=== PATIENT | female | born 1980 | race Caucasian/White ===

== ENCOUNTER → 2017-11-01 14:32 | Outpatient (CLI) | payer MEDICARE, SELFPAY ==
[2017-11-01 15:54] LABS: Amphetamine Urine VISTA NEGATIVE (<1000 ng/mL); Barbiturate Urine VISTA NEGATIVE (< 200 ng/mL); Benzodiazepine Urine VISTA NEGATIVE (< 200 ng/mL); Cocaine Urine VISTA POSITIVE (< 300 ng/mL); Ecstacy Urine VISTA NEGATIVE (< 500 ng/mL); Methadone Urine VISTA NEGATIVE (< 300 ng/mL); PCP Urine VISTA NEGATIVE (< 25 ng/mL); THC Urine VISTA POSITIVE (< 50 ng/mL); Vista UDS pH Range 7
== END ==
PROVIDERS: Visit Provider Anesthesiology Pain Medicine
DX: F11.20 Opioid dependence, uncomplicated (principal)
CPT/HCPCS: 80307

== ENCOUNTER 2018-03-21 12:00 | Emergency (ER) | payer MEDICARE, SELFPAY ==
[2018-03-21 12:00] VITALS: BP 147/76; PULSE 72; RESP 20; TEMP 36.6; O2SAT 98; BMI 24.5
--- NOTE | 2018-03-21 12:18 | RAD_ITS ---
STUDY: X-RAY - LEFT SHOULDER REASON FOR EXAM: Female, 37 years old. Decreased range of motion with pain following a fall. TECHNIQUE: 2 view(s) of the shoulder. COMPARISON: None. FINDINGS: Normal glenohumeral articulation. Normal acromioclavicular joint. Normal acromion. Nondisplaced transverse fracture of the surgical neck of the humerus. The soft tissue structures are unremarkable. Normal visualized pulmonary apex. RAD/Shoulder min 2 Views IMPRESSION: Nondisplaced transverse fracture of the surgical neck of the humerus. Electronically Signed: Aaron Rosenthal MD at 13:07 EST Tel [phone], Service support ,
--- NOTE | 2018-03-21 12:18 | RAD_ITS ---
STUDY: X-RAY - LEFT HUMERUS REASON FOR EXAM: Female, 37 years old. Pain following a fall. Decreased range of motion. TECHNIQUE: 2 view(s) with 3 images of the humerus. COMPARISON: None. FINDINGS: Nondisplaced transverse fracture of the surgical neck of the humerus. This extends to the greater tuberosity. Soft tissue swelling. RAD/Humerus min 2 Views IMPRESSION: Nondisplaced transverse fracture through the surgical neck of the humerus with extension to the greater tuberosity. Electronically Signed: Aaron Rosenthal MD at 13:08 EST Tel [phone], Service support ,
--- NOTE | 2018-03-21 12:20 | ED.VISSUMM ---
- ER Visit Summary Date of Service: 03/21/18 Chief Complaint: Slipped and fell on the ice injuring left upper extremity and shoulder History of Present Illness: The patient is a 37 F left hand dominant. Was going outside of health today slipped and fell landing injuring her left shoulder and upper extremity. No prior history. She is left-hand dominant. She denies striking her head or having other injuries. Physical Examination: Vital signs are stable and afebrile. No distress. H EENT exam atraumatic. No signs of trauma to the face or scalp no tenderness or hematoma. Neck nontender. Trachea midline. Lungs clear to auscultation bilaterally. Heart regular rhythm no murmur. Chest wall nontender. Abdomen soft nontender. Pelvic girdle intact. No shortening or rotation of either lower extremity. Dorsi and plantar flexion intact in both feet and ankles. Able to flex and extend both hips and knees bilaterally. Right upper extremity unremarkable. Mild tenderness to the left posterior shoulder and humerus. No gross bony deformity. Elbow, left forearm, wrist and hand are nontender neurovascular intact she has normal car shakeout operator strength of the left hand normal sensation. Normal radial pulse. Back is nontender. Neurologically she is awake and alert with no focal motor deficits. Test Results: Left shoulder x-ray shows nondisplaced left surgical neck humeral fracture. Left humerus x-ray shows nondisplaced surgical neck fracture. Emergency Department Course and Treatment: Patient treated with 1 p.o. Staples. Treatment Plan: Patient placed in a sling. Discharged to home with Percocet for pain 20 no refill. Follow-up with Dr. Mark Boyce of orthopedics. Disposition: Discharge Impression: Slipped and fell on the ice Acute left shoulder nondisplaced humeral surgical neck fracture This note was generated with [employer] dictation software. It may contain incorrect words, spelling, and punctuation that were not noted in review of the chart prior to signing ED Disposition - Plan for ED Patient: Chief Complaint: Upper Extremity Injury Referrals: Care Physician,No Primary [Primary Care Provider] -
--- NOTE | 2018-03-21 12:24 | ED.DCSUM_ITS ---
- ER Visit Summary Date of Service: 03/21/18 Chief Complaint: Slipped and fell on the ice injuring left upper extremity and shoulder History of Present Illness: The patient is a 37 F left hand dominant. Was going outside of health today slipped and fell landing injuring her left shoulder and upper extremity. No prior history. She is left-hand dominant. She denies striking her head or having other injuries. Physical Examination: Vital signs are stable and afebrile. No distress. H EENT exam atraumatic. No signs of trauma to the face or scalp no tenderness or hematoma. Neck nontender. Trachea midline. Lungs clear to auscultation bilaterally. Heart regular rhythm no murmur. Chest wall nontender. Abdomen soft nontender. Pelvic girdle intact. No shortening or rotation of either lower extremity. Dorsi and plantar flexion intact in both feet and ankles. Able to flex and extend both hips and knees bilaterally. Right upper extremity unremarkable. Mild tenderness to the left posterior shoulder and humerus. No gross bony deformity. Elbow, left forearm, wrist and hand are nontender neurovascular intact she has normal train starter strength of the left hand normal sensation. Normal radial pulse. Back is nontender. Neurologically she is awake and alert with no focal motor deficits. Test Results: Left shoulder x-ray shows nondisplaced left surgical neck humeral fracture. Left humerus x-ray shows nondisplaced surgical neck fracture. Emergency Department Course and Treatment: Patient treated with 1 p.o. [place]. Treatment Plan: Patient placed in a sling. Discharged to home with Percocet for pain 20 no refill. Follow-up with Dr. Mark Boyce of orthopedics. Disposition: Discharge Impression: Slipped and fell on the ice Acute left shoulder nondisplaced humeral surgical neck fracture This note was generated with [employer] dictation software. It may contain incorrect words, spelling, and punctuation that were not noted in review of the chart prior to signing ED Disposition - Plan for ED Patient: Chief Complaint: Upper Extremity Injury Referrals: Care Physician,No Primary [Primary Care Provider] -
[2018-03-21] MEDS: HYDROcodone Bitartrate/Apap 5/325 Tablet PO (12:34)
--- NOTE | 2018-03-21 13:30 | ED.DEP ---
ED Disposition - Plan for ED Patient: Disposition: Home or Assisted Living Chief Complaint: Upper Extremity Injury Instructions: ED Fx Shoulder Prescriptions: Oxycodone HCl/Acetaminophen [Percocet 10-325 mg Tablet] 1 tab PO Q6H PRN PRN #20 tab PRN Reason: Pain Referrals: Mark Boyce DO [STAFF PHYSICIAN] - Additional Instructions: Ice to the shoulder. Take out the sling daily to do range of motion and prevent stiffness. Motrin and Percocet for pain. Call and follow-up with Dr. Mark Boyce of orthopedics or an orthopedic physician of your choice.
== END 2018-03-21 13:50 | disposition home or self-care (01) ==
PROVIDERS: Emergency Provider Emergency Medicine
DX: S42.215A Unspecified nondisplaced fracture of surgical neck of left humerus, initial encounter for closed fracture (principal); W00.2XXA Other fall from one level to another due to ice and snow, initial encounter; Y93.89 Activity, other specified; Y92.008 Other place in unspecified non-institutional (private) residence as the place of occurrence of the external cause; G40.909 Epilepsy, unspecified, not intractable, without status epilepticus; M79.7 Fibromyalgia; Z79.899 Other long term (current) drug therapy; Z72.0 Tobacco use
CPT/HCPCS: 73030; 73060; 99283

== ENCOUNTER 2020-01-05 21:24 | Emergency (ER) | payer MEDICARE, MEDICAID, SELFPAY ==
[2020-01-05 21:25] VITALS: BP 139/80; PULSE 83; RESP 16; TEMP 36.4; O2SAT 99; BMI 21.7
--- NOTE | 2020-01-05 21:42 | ED.VIS.GEN ---
History of Present Illness Chief Complaint: Headache Informant: Patient Narrative: Patient presents the emergency department with a right-sided headache. Patient reports a history of migraines but since having her teeth pulled about 2 months ago she has not experienced a migraine. She states that she woke Sunday around noon with this headache. She denies any visual symptoms or changes. She denies any speech or hearing symptoms. No arm or leg symptoms. Headache is not positional. She has not had any recent infections or fevers. She does not have a primary care physician or automated access systems technician for her clotting disorder any longer Past Medical History - Allergies and Home Meds Allergies/Adverse Reactions: Allergies azithromycin Allergy (Verified 01/05/20 21:27) Hives erythromycin base [Erythromycin Base] Allergy (Verified 01/05/20 21:27) Hives latex Allergy (Verified 01/05/20 21:27) Rash Sulfa (Sulfonamide Antibiotics) Allergy (Verified 01/05/20 21:27) Hives divalproex sodium [From Depakote] Adverse Reaction (Verified 01/05/20 21:27) Rash Penicillins Adverse Reaction (Verified 01/05/20 21:27) Rash Primary Care Physician: Care Physician,No Primary [Primary Care Provider] - Smoking Status: Current every day smoker Review of Systems General: Denies: Chills, Fever, Sweats Eyes: Denies: Visual changes - bilaterally, Diplopia ENT: Denies: Rhinorrhea, Sore throat Cardiovascular: Denies: Chest pain, Palpitations Respiratory: Denies: Dyspnea, Cough, Dyspnea on exertion Gastrointestinal: Denies: Abdominal pain, Nausea, Vomiting, Diarrhea, Melena, Hematochezia Genitourinary: Denies: Dysuria, Hematuria, Frequency Musculoskeletal: Denies: Back pain, Extremity Pain Skin: Denies: Rash, Wounds Neurological: Reports: Headache. Denies: Weakness, Numbness Physical Exam Vital Signs/Narrative: Vital Signs Temp Pulse Resp BP Pulse Ox 01/05/20 21:25 97.6 F L 83 16 139/80 H 99 Inital Vital Signs reviewed: Yes General: Well nourished, Well developed, No Acute Distress Head: Normocephalic, Atraumatic Eyes: Perrl, EOMI ENT: Moist mucous membranes, No rhinorrhea Neck: Supple, Nontender Cardiovascular: Regular rate, Regular rhythm, No murmurs Respiratory: No distress, CTA bilaterally, Chest nontender Abdomen: Soft, Nontender, Nondistended, Normal bowel sounds Back: Nontender, Normal Inspection Extremities: Nontender, No edema Skin: Normal color, No rash Neurological: Alert, Oriented x3, Cranial nerves II-XII grossly intact, Normal Strength, Normal Sensation Psychological: Normal affect, Normal Mood Diagnostic/Tx/Re-eval - Medical Decision Making Patient received Toradol, Phenergan, Benadryl, IV fluids. She states her headache is significantly improved down to. We will give her a dose of Decadron. I will write for her to have Toradol and Phenergan at home for headaches if they continue. Patient needs to establish primary care. She has multiple medical problems that should be followed on a long-term basis. She understands this I will give her referral. ED Disposition - Plan for ED Patient: Disposition: Home or Assisted Living Diagnosis: Migraine Instructions: ED Headache Unspecified Prescriptions: proMETHazine tablet [Phenergan] 25 mg PO Q8H PRN PRN #15 tab PRN Reason: Nausea Transmission Status: Pending to [facility] Ketorolac [Toradol] 10 mg PO Q8H PRN 5 Days #15 tab PRN Reason: Pain Transmission Status: Pending to [facility] Referrals: Fabricio Khan MD [STAFF PHYSICIAN] - As soon as possible
[2020-01-05] MEDS: 0.9% Normal Saline 1,000 ML 999 ML IV (22:19)
[2020-01-05] MEDS: Ketorolac 30 MG/ML Syringe IV (22:19)
[2020-01-05] MEDS: DiphenhydrAMINE 50 MG/ML Syringe 25 MG IV (22:20)
[2020-01-05] MEDS: proMETHazine 25 MG/ML Syringe 12.5 MG IV (22:22)
[2020-01-05] MEDS: dexAMETHasone 10 MG/ML Vial IV (23:36)
[2020-01-05 23:40] VITALS: BP 100/58; PULSE 88; RESP 98
== END 2020-01-05 23:46 | disposition home or self-care (01) ==
PROVIDERS: Emergency Provider Emergency Medicine
DX: G43.909 Migraine, unspecified, not intractable, without status migrainosus (principal); F17.200 Nicotine dependence, unspecified, uncomplicated
CPT/HCPCS: 96361; 96374; 96375; 99283; J7030; A4216

== ENCOUNTER 2021-10-07 12:46 | Emergency (ER) | payer MEDICARE, MEDICAID, SELFPAY ==
[2021-10-07 12:47] VITALS: BP 134/93; PULSE 127; RESP 16; TEMP 38.4; O2SAT 95; BMI 21.7
--- NOTE | 2021-10-07 12:58 | EKG12_ITS ---
Test Reason : Blood Pressure : / mmHG Vent. Rate : 115 BPM Atrial Rate : 115 BPM P-R Int : 116 ms QRS Dur : 088 ms QT Int : 328 ms P-R-T Axes : 077 071 062 degrees QTc Int : 453 ms Sinus tachycardia Nonspecific T wave abnormality Abnormal ECG Confirmed by REGINA CHI, LORNA ([id number]), commissioning editor CELINA AVILES ([id number]) on 10/10/2021 12:58:46 PM Referred By: KATI Confirmed By:LORNA TAPIA MD
--- NOTE | 2021-10-07 12:58 | RAD_ITS ---
STUDY: X-RAY CHEST REASON FOR EXAM: Female, 41 years old. Cough . Body aches and fever. TECHNIQUE: Single AP portable view of the chest. COMPARISON: None. FINDINGS: EKG electrodes are seen. Right lower lobe infiltrate. There is no demonstrated pleural abnormality. Normal size heart. Normal mediastinum and sally. Normal visualized pulmonary arteries. Normal visualized aortic arch and descending thoracic aorta. Normal visualized thoracic spine. Normal visualized ribs, clavicles, and shoulders. There is no demonstrated abnormality of the visualized soft tissue structures of the upper abdomen. RAD/Chest 1 View (Portable) IMPRESSION: Right lower lobe infiltrate. Radiographic follow-up recommended. Electronically Signed: Aaron Rosenthal MD at 13:51 EDT ,
--- NOTE | 2021-10-07 12:59 | EDS_ITS ---
HPI History of Present Illness Chief Complaint: Chest Other Narrative Narrative: 41-year-old female presenting with right-sided chest pain, cough, fever, chills, body aches. She states that her daughter came to visit her on the weekend last Sunday and she had a cough. Since Sunday or Sunday the patient herself had a cough and high fever. She states that her fever does resolve with Motrin and Tylenol but then does return. Patient does not have significant shortness of breath. She states she is coughing up sputum. Patient has history of DVT and PE with history of lupus. She is not anticoagulated. PFSH PFSH Home Medications promethazine 25 mg PO Q8H PRN PRN #15 tab 01/05/20 [Rx Last Taken Unknown] levofloxacin 750 mg PO DAILY #4 tab 10/07/21 [Rx Last Taken Unknown] ondansetron 4 mg PO Q8H PRN #14 tab 10/07/21 [Rx Last Taken Unknown] Allergy/AdvReac Type Severity Reaction Status Date / Time azithromycin Allergy Hives Verified 10/07/21 12:49 erythromycin base Allergy Hives Verified 10/07/21 12:49 [Erythromycin Base] latex Allergy Rash Verified 10/07/21 12:49 Sulfa (Sulfonamide Allergy Hives Verified 10/07/21 12:49 Antibiotics) divalproex sodium AdvReac Rash Verified 10/07/21 12:49 [From Depakote] nitroglycerin AdvReac Vomiting Verified 10/07/21 12:49 Penicillins AdvReac Rash Verified 10/07/21 12:49 Social History Smoking Status: Current some day smoker tobacco type: cigarettes ROS ROS ED Constitutional Constitutional ED: Reports chills and fever(s) Eyes Eyes: Denies blurry vision or change in vision ENT ENT ED: Reports rhinorrhea Cardiovascular Cardiovascular: Reports chest pain and racing heartbeat Respiratory/Chest Respiratory/Chest: Reports cough and sputum Gastrointestinal Gastrointestinal: Denies abdominal pain, nausea or vomiting Genitourinary Genitourinary ED: Denies dysuria or hematuria Musculoskeletal Musculoskeletal: Reports myalgias Integumentary Denies rash Neurologic Neurologic: Reports headache(s); Denies paresthesias or weakness Psychiatric Psychiatric: Denies anxiety or depression EXAM Physical Exam Const Vital Signs: 10/07/21 12:47 10/07/21 13:32 10/07/21 13:33 Temperature 101.2 F H 101.2 F H Temperature Source Temporal Temporal Pulse Rate 127 H 127 H Respiratory Rate 16 16 Respiratory Effort Normal Blood Pressure 134/93 H 134/93 H Blood Pressure Mean 106 106 Pulse Ox 95 95 Oxygen Delivery Method Room Air Room Air 10/07/21 14:00 10/07/21 15:00 Temperature 99.4 F H 99.5 F H Temperature Source Oral Oral Pulse Rate 105 H 103 H Respiratory Rate 12 21 H Respiratory Effort Blood Pressure Blood Pressure Mean Pulse Ox 96 99 Oxygen Delivery Method Room Air Room Air Positive well nourished General Appearance ED: NAD; Negative for pallor HEENT Reports moist mucous membranes normocephalic and atraumatic Eyes PERRL and EOMs intact bilaterally General Eye ED: Negative for pale conjunctiva or scleral icterus Neck no lymphadenopathy, supple and no JVD Chest Wall inspection of chest normal Resp normal respiratory effort Auscultation: rales right lower and upper and rhonchi left upper and right upper Cardio regular rhythm Rate: tachycardic GI normal to inspection, nondistended, normoactive bowel sounds Neuro oriented x3 and CN's II-XII intact bilaterally Sensorium / Orientation: awake and alert Motor Exam: strength 5/5 throughout Psych mental status grossly normal Skin no rashes or lesions noted General Skin Exam: Negative for jaundice or pallor MDM MDM MDM Narrative Medical decision making narrative: 41-year-old female present with cough, fever, chills, body aches. Patient states she initially started getting sick after her daughter came to visit. She developed a fever cough later this week. Patient tachycardic, febrile on arrival. Sepsis protocol followed. I obtained a CBC which shows a 15.5 white count. Hemoglobin hematocrit are stable. There is a male coagulation studies normal. Renal function and electrolytes normal with exception of potassium which is 2.9 which was repleted orally with 40 mEq. LFTs are normal. High-sensitivity troponin is less than 3. EKG on my interpretation shows a normal sinus rhythm with a ventricular rate of 115 bpm without sign of ischemic change or dysrhythmia. Chest x-ray on my interpretation shows a right lower lobe infiltrate. The radiologist does agree. Patient treated with an IV dose of Levaquin due to her multiple antibiotic allergies. Patient feeling better after IV fluids, Zofran, Toradol. Her fever has improved. Patient does have pneumonia but I do not believe she is to stay because is not hypoxic and her heart rate is improved. She feels well and wants to try home-going antibiotics. I will start her on Levaquin for home. She is given Zofran for nausea. She is counseled to stay well-hydrated. COVID testing today was negative. Although the patient does have right-sided chest pain her heart enzymes are normal and her EKG does not show any sign of ischemia. We did discuss the fact that she previously had a PE and she states that this when she was septic and had meningitis. She wanted a CTA of the chest to rule this out however due to difficulty getting IV established she will obtain membership counselor her that we could attempt to put an IV in her EJ but after discussion and shared decision making she feels like she can hold off on this for now. We do have a diagnosis of pneumonia which is on a chest x-ray and her symptoms are consistent with an infection. Patient given return precautions. Impression: 1. Right lower lobe pneumonia 2. Fever 3. Leukocytosis 4. Hypokalemia Lab Data Attestation: I reviewed the patient's lab results. Labs: Laboratory Results - last 24 hr 10/07/21 10/07/21 10/07/21 13:19 13:19 13:19 WBC 15.5 H RBC 4.46 Hgb 13.8 Hct 40.8 MCV 91.5 MCH 30.9 MCHC 33.8 RDW Std Deviation 43.8 RDW Coeff of Paulo 13.1 Plt Count 201 MPV 9.6 Immature Gran % (Auto) RESIDENTIAL SALES ASSOCIATE Neut % (Auto) RESIDENTIAL SALES ASSOCIATE Lymph % (Auto) RESIDENTIAL SALES ASSOCIATE [place] % (Auto) RESIDENTIAL SALES ASSOCIATE Eos % (Auto) RESIDENTIAL SALES ASSOCIATE Baso % (Auto) RESIDENTIAL SALES ASSOCIATE Absolute Neuts (auto) 15.6 H Absolute Lymphs (auto) 0.93 Total Counted 100 Neutrophils % (Manual) 63 Band Neutrophils % 31 H Lymphocytes % (Manual) 6 L Nucleated RBC % RESIDENTIAL SALES ASSOCIATE Diff Path Review May foll Platelet Estimate ADEQUATE RBC Morphology NORM C+C PT 14.3 INR 1.1 APTT 31.3 Sodium 135 L Potassium 2.9 L Chloride 103 Carbon Dioxide 26.0 Anion Gap 6 BUN 9 Creatinine 0.79 Estim Creat Clear Calc 77.52 Est GFR (MDRD) Af Amer 103 Est GFR (MDRD) Non-Af 85 BUN/Creatinine Ratio 11.4 Glucose 81 Lactic Acid Calcium 8.6 Total Bilirubin 0.20 AST 14 L ALT 23 Alkaline Phosphatase 75 Troponin I High Sens < 3 L Total Protein 7.7 Albumin 3.0 L Globulin 4.7 H Albumin/Globulin Ratio 0.6 L 10/07/21 13:19 WBC RBC Hgb Hct MCV MCH MCHC RDW Std Deviation RDW Coeff of Paulo Plt Count MPV Immature Gran % (Auto) Neut % (Auto) Lymph % (Auto) [place] % (Auto) Eos % (Auto) Baso % (Auto) Absolute Neuts (auto) Absolute Lymphs (auto) Total Counted Neutrophils % (Manual) Band Neutrophils % Lymphocytes % (Manual) Nucleated RBC % Diff Path Review Platelet Estimate RBC Morphology PT INR APTT Sodium Potassium Chloride Carbon Dioxide Anion Gap BUN Creatinine Estim Creat Clear Calc Est GFR (MDRD) Af Amer Est GFR (MDRD) Non-Af BUN/Creatinine Ratio Glucose Lactic Acid 1.4 Calcium Total Bilirubin AST ALT Alkaline Phosphatase Troponin I High Sens Total Protein Albumin Globulin Albumin/Globulin Ratio Radiography Diagnostic Testing: Clinical Impression(s) from Imaging Studies Chest X-Ray 10/07/21 12:58 IMPRESSION: Right lower lobe infiltrate. Radiographic follow-up recommended. Electronically Signed: Aaron Rosenthal MD at 13:51 EDT , Discharge Plan Triage Chief Complaint: Chest Other ED Provider: Efrem Chowdary Dx/Rx/DC Orders Instructions: ED Chest Pain, Noncardiac, ED Pneumonia (Adult) Prescriptions: New levofloxacin 750 mg tablet 750 mg PO DAILY Qty: 4 RF: 0 ondansetron 4 mg tablet,disintegrating 4 mg PO Q8H PRN (Reason: nausea and vomiting) Qty: 14 RF: 0 No Action promethazine 25 MG tablet 25 mg PO Q8H PRN PRN (Reason: Nausea) Qty: 15 RF: 0 Primary Care Provider: Care Physician,No Primary Referrals: Care Physician,No Primary [Primary Care Provider] - Disposition Disposition: Home, Self Care
[2021-10-07] MEDS: 0.9% Normal Saline 1,000 ML 999 ML IV (13:23)
[2021-10-07] MEDS: Ketorolac 15 MG/ML Vial IV (13:23)
[2021-10-07 13:32] VITALS: BP 134/93; PULSE 127; RESP 16; TEMP 38.4; O2SAT 95
[2021-10-07 13:40] LABS: Hematocrit 40.8 % (37-47); Hemoglobin 13.8 g/dL (12.0-15.0); Mean Corp Hgb Conc 33.8 g/dL (32-36); Mean Corpuscular Hgb 30.9 pg (27.0-32.0); Mean Corpuscular Volume 91.5 fL (81-99); Mean Platelet Vol. 9.6 fl (6.2-12.0); POSITIVE MORPHOLOGY YES; Platelet Count 201 K/mm3 (150-450); RBC Distribution Width CV 13.1 % (11.6-14.6); RBC Distribution Width SD 43.8 fl (35.1-43.9); Red Blood Count 4.46 M/mm3 (4.2-5.4); White Blood Count 15.5 K/mm3 (4.4-11.0)
[2021-10-07 13:51] LABS: International Normalized Ratio 1.1; Partial Thromboplast Time 31.3 Seconds (24.1-36.2); Prothrombin Time (Protime)PT. 14.3 SECONDS (11.7-14.9)
[2021-10-07 14:00] VITALS: PULSE 105; RESP 12; TEMP 37.4; O2SAT 96
[2021-10-07 14:00] LABS: ALB/GLOB Ratio 0.6 RATIO (0.9-2.4); AST(SGOT) 14 U/L (15-37); Alanine Aminotransfer ALT/SGPT 23 U/L (13-56); Alkaline Phosphatase 75 U/L (45-117); Anion Gap 6 (5-15); BUN 9 mg/dL (7-18); BUN/Creat Ratio 11.4 RATIO (10-20); Calcium,Total 8.6 mg/dL (8.5-10.1); Chloride 103 mmol/L (98-107); Creatinine, Serum 0.79 mg/dL (0.55-1.02); EST Glomerular Filtration Rate 85 mL/min (>60); Est Glom Filt Rate - Afr Amer 103 mL/min (>60); Estimated Creatinine Clearance 77.52 ml/min; Globulin 4.7 g/dL (2.2-4.2); Glucose 81 mg/dL (74-106); Potassium 2.9 mmol/L (3.5-5.1); Protein, Total 7.7 g/dL (6.4-8.2); Sodium Level 135 mmol/L (136-145); Troponin-I HS < 3 pg/mL (3.0-54.0)
[2021-10-07 14:17] LABS: Lactic Acid 1.4 mmol/L (0.4-1.9)
[2021-10-07 14:27] LABS: Scan Smear per Review Criteria MANUAL DIFF
[2021-10-07 14:29] LABS: Differential Indicated MANUAL DIFF
[2021-10-07 14:33] LABS: Lymphocyte 6 % (19-41); Neutrophil-Band 31 % (0-5); Neutrophil-Segmented 63 % (47-70); Platelet Estimate ADEQUATE (ADEQ); Red Cell Morphology NORM C+C NORMAL (NORM C&C); Total Cells Counted 100 (MANUAL DIFF)
[2021-10-07 14:35] LABS: Absolute Lymphocyte Count 0.93 X10^3/uL (0.83-4.51); Absolute Neutrophil Count 15.6 X10^3/uL (2.0-7.7)
--- NOTE | 2021-10-07 14:50 | CM.ED ---
SW Note SW reviewed tracker and noted that patient has no PCP. SW met with PCP and patient said that the reason that she cannot have get a PCP is they said I am too complicated. Patient said I had to fire Dr. Cuevas years ago because he said I wasn't sick.. I was drug seeking. SW encouraged patient to secure a PCP when patient is feeling better. Plan: [facility] L[facility]
[2021-10-07 15:00] VITALS: PULSE 103; RESP 21; TEMP 37.5; O2SAT 99
[2021-10-07] MEDS: levoFLOXacin IV 750 MG/150 ML BAG 100 MG IV (15:06)
[2021-10-07] MEDS: Potassium Chloride Oral Tablet 20 MEQ 40 MEQ PO (15:48)
[2021-10-07 16:09] VITALS: PULSE 107; RESP 24
[2021-10-10 13:33] LABS: Pathologist Review Reviewed
== END 2021-10-07 16:38 | disposition home or self-care (01) ==
PROVIDERS: Emergency Provider Student in an Organized Health Care Education/Training Program; Visit Provider Student in an Organized Health Care Education/Training Program
DX: J18.9 Pneumonia, unspecified organism (principal); E87.6 Hypokalemia; F17.210 Nicotine dependence, cigarettes, uncomplicated; R07.89 Other chest pain; Z86.711 Personal history of pulmonary embolism
CPT/HCPCS: 71045; 80053; 83605; 84484; 85025; 85610; 85730; 87040; 87811; 93005; 96361; 96365; 96366; 96375; 99285; J7030; A4216

== ENCOUNTER 2022-10-09 21:45 | Inpatient (IN) | payer MEDICARE, MEDICAID, SELFPAY ==
[2022-10-09 21:45] VITALS: BP 126/87; PULSE 125; RESP 15; TEMP 37.2; O2SAT 99; BMI 21.6
--- NOTE | 2022-10-09 22:10 | EKG12_ITS ---
Test Reason : DYSRHYTHMIA Blood Pressure : / mmHG Vent. Rate : 092 BPM Atrial Rate : 092 BPM P-R Int : 122 ms QRS Dur : 090 ms QT Int : 380 ms P-R-T Axes : 076 063 066 degrees QTc Int : 469 ms Normal sinus rhythm Normal ECG Confirmed by REGINA CHI, LORNA ([id number]), video editor CELINA AVILES ([id number]) on 10/11/2022 8:59:35 AM Referred By: KELLI Confirmed By:LORNA TAPIA MD
--- NOTE | 2022-10-09 22:12 | EX.ED.DYSGE1 ---
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 Patient notes about 5 days ago she started having swelling of her hands. She started taking an [id number] diuretic, diurex, and while she reports that her swelling has improved she notes that she has had decreased urine output. Her daughter just had a baby 2 weeks ago and she is been holding the baby a lot so she did note that is why her hands and arms were hurting. She denies any trauma or injury. She has a past few days she is felt very weak and is even had a hard time standing because she is so weak. She has had nausea and yesterday pretty severe dry heaves. States she really has been able to eat or drink much at all today. She did have some 600 mg of Motrin earlier today and Zofran this morning. She reports having a fever yesterday but she did not check her temperature because she states she was too weak to get off the couch. She denies any specific shortness of breath or chest pain. She has some chronic leg swelling but notes it is no worse than normal. She denies any cough. She does have a mild headache. Denies any rash. No other complaints at this time. [facility] Medical History Asthma Colitis Depression DVT (deep venous thrombosis) Fibromyalgia Lupus Narcolepsy Seizure Home Medications NK 10/09/22 [History Last Taken Unknown] Allergy/AdvReac Type Severity Reaction Status Date / Time azithromycin Allergy Hives Verified 10/09/22 21:49 erythromycin base Allergy Hives Verified 10/09/22 21:49 [Erythromycin Base] latex Allergy Rash Verified 10/09/22 21:49 Sulfa (Sulfonamide Allergy Hives Verified 10/09/22 21:49 Antibiotics) divalproex sodium AdvReac Rash Verified 10/09/22 21:49 [From Depakote] nitroglycerin AdvReac Vomiting Verified 10/09/22 21:49 Penicillins AdvReac Rash Verified 10/09/22 21:49 Family History Other Cancer Heart problem Pulmonary fibrosis Surgical History H/O knee surgery History of Social History (Updated 10/10/22 @ 03:[address] Miguel Angel Vargas MD) Smoking Status: Former smoker ROS ROS ED Constitutional Constitutional ED: Reports chills and fever(s) Eyes Eyes: Denies change in vision ENT ENT ED: Denies rhinorrhea or sore throat Cardiovascular Cardiovascular: Reports racing heartbeat; Denies chest pain or palpitations Respiratory/Chest Respiratory/Chest: Denies cough or dyspnea Gastrointestinal Gastrointestinal: Reports nausea and vomiting; Denies abdominal pain, constipation or diarrhea Genitourinary Genitourinary ED: Reports other Details: Decreased urination ; Denies dysuria or urinary frequency Musculoskeletal Musculoskeletal: Reports myalgias; Denies arthralgias or neck pain Integumentary Denies rash Neurologic Neurologic: Reports headache(s) and weakness; Denies paresthesias Psychiatric Psychiatric: Denies anxiety Hematologic/Lymphatic Hematologic/Lymphatic: Denies easy bleeding or easy bruising EXAM Physical Exam Const Vital Signs: 10/09/22 21:45 10/09/22 22:07 10/09/22 22:13 Temperature 99.0 F Temperature Source Temporal Pulse Rate 125 H Respiratory Rate 15 Respiratory Effort Normal Non-Labored Respiratory Pattern Normal Blood Pressure 126/87 H Blood Pressure Mean 100 Pulse Ox 99 Oxygen Delivery Method Room Air Room Air 10/09/22 22:54 10/10/22 00:30 10/09/22 23:45 Temperature 97.4 F L Temperature Source Temporal Pulse Rate 85 79 79 Respiratory Rate 17 14 16 Respiratory Effort Respiratory Pattern Blood Pressure 111/73 97/72 97/65 Blood Pressure Mean 85 80 75 Pulse Ox 98 98 Oxygen Delivery Method Room Air Room Air 10/10/22 02:00 Temperature Temperature Source Pulse Rate 79 Respiratory Rate Respiratory Effort Respiratory Pattern Blood Pressure 100/62 Blood Pressure Mean 74 Pulse Ox Oxygen Delivery Method Positive well nourished and well developed General Appearance ED: well developed and NAD HEENT Reports TM's clear and dry mucous membranes Tympanic Membrane ED: Yes TM's clear Mouth ED: Yes dry mucous membranes Mouth: dry mucous membranes Eyes PERRL and EOMs intact bilaterally Neck supple and no JVD Neck Narrative: Normal range of motion with no meningeal signs General: Negative for tenderness Chest Wall inspection of chest normal and palpation of chest normal Resp normal respiratory effort and clear to auscultation bilaterally Auscultation: Negative for rales or wheezes Cardio regular rhythm and no murmurs Rate: tachycardic GI normal to inspection, nondistended, normoactive bowel sounds and non-tender Back/Spine no CVA tenderness Extremity normal to inspection Extremity Narrative: Intact distal pulses. No significant edema of the extremities appreciated. General Extremety ED: Negative for tenderness Neuro oriented x3 Sensorium / Orientation: alert Motor Exam: general weakness Psych mental status grossly normal Mood & Affect: anxious Skin Skin Narrative: Dry skin, jimenez. Rashes: No rashes noted MDM MDM MDM Narrative Medical decision making narrative: Patient is evaluated for generalized weakness, myalgia and fever. Upon arrival patient is tachycardic with a low-grade temp of 99 ?F. She is not hypoxic. She has complex medical history in addition. We will obtain a septic work-up as well as looking for cause of infection. Is given IV fluids, Tylenol and Zofran in the emergency room. Patient's tachycardia improved however it improved prior to receiving IV fluids. She does have a leukopenia with a white blood cell count of 3.8. She also has signs of a left shift. Urinalysis is concerning for infection with 500 leukocyte esterase, 25-50 red blood cells and 50-100 white blood cells however it is contaminated with squamous epithelial cells. There is 4+ bacteria. Patient is currently menstruating. Culture sent. She is empirically placed on Rocephin as I have no other source of infection for her symptoms. Patient does have an acute transaminitis with an AST of 1688 and ALT of 1924. Her bilirubin is normal. Her alkaline phosphatase is normal. I am not sure if she has an acute hepatitis however she is not really complaining of abdominal pain however she has had dry heaves. She does have untreated lupus so it is possible this could be autoimmune in nature. Hepatitis panel is sent. CTA of the chest given her tachycardia, fever of unknown origin and history of DVT is obtained as well as CT of the abdomen pelvis with IV contrast. Patient initially had an abnormal chest x-ray with ill-defined changes and CT of the chest will better visualize this. CT of the chest is negative for any acute process. CT of the abdomen pelvis shows fluid within nondistended loops of small bowel within the stomach without bowel wall thickening or surrounding inflammation which can be normal or seen with gastroenteritis. Clinically her picture does not fit gastroenteritis. Patient does not have any diarrhea. Given patient's comorbidities, generalized weakness and laboratory findings she will be admitted for further work-up. Patient agreeable with this plan of care. She remains hemodynamically stable in the emergency room. Lab Data Labs: Laboratory Results - last 24 hr 10/09/22 10/09/22 10/09/22 22:35 22:35 22:35 WBC 3.8 L RBC 4.72 Hgb 14.5 Hct 43.5 MCV 92.2 MCH 30.7 MCHC 33.3 RDW Std Deviation 44.7 H RDW Coeff of Paulo 13.1 Plt Count 185 MPV 9.7 Immature Gran % (Auto) 1.100 H Neut % (Auto) 75.4 H Lymph % (Auto) 15.8 L [place] % (Auto) 5.8 Eos % (Auto) 1.1 Baso % (Auto) 0.8 Absolute Neuts (auto) 2.9 Absolute Lymphs (auto) 0.60 L Nucleated RBC % 0 Differential Comment SCANNED Diff Path Review May foll Reactive Lymphocytes 2+ PT 14.7 INR 1.2 APTT 32.9 Sodium 137 Potassium 3.1 L Chloride 106 Carbon Dioxide 25.0 Anion Gap 6 BUN 11 Creatinine 0.75 Estim Creat Clear Calc 80.83 Est GFR (MDRD) Af Amer 109 Est GFR (MDRD) Non-Af 90 BUN/Creatinine Ratio 14.7 Glucose 118 H Lactic Acid Calcium 8.5 Total Bilirubin 0.50 AST 1688 H ALT 1924 H Alkaline Phosphatase 98 Total Creatine Kinase 42 Troponin I High Sens 4 Total Protein 7.3 Albumin 3.5 Globulin 3.8 Albumin/Globulin Ratio 0.9 TSH 0.37 Urine Color Urine Clarity Urine pH Ur Specific [place] Urine Protein Urine Glucose (UA) Urine Ketones Urine Occult Blood Urine Nitrite Urine Bilirubin Urine Urobilinogen Ur Leukocyte Esterase Urine RBC Urine WBC Ur Squamous Epith Cells Amorphous Sediment Urine Bacteria Urine Mucus Monoscreen 10/09/22 10/10/22 10/10/22 22:35 00:05 00:25 WBC RBC Hgb Hct MCV MCH MCHC RDW Std Deviation RDW Coeff of Paulo Plt Count MPV Immature Gran % (Auto) Neut % (Auto) Lymph % (Auto) Cache % (Auto) Eos % (Auto) Baso % (Auto) Absolute Neuts (auto) Absolute Lymphs (auto) Nucleated RBC % Differential Comment Diff Path Review Reactive Lymphocytes PT INR APTT Sodium Potassium Chloride Carbon Dioxide Anion Gap BUN Creatinine Estim Creat Clear Calc Est GFR (MDRD) Af Amer Est GFR (MDRD) Non-Af BUN/Creatinine Ratio Glucose Lactic Acid 2.3 H* Calcium Total Bilirubin AST ALT Alkaline Phosphatase Total Creatine Kinase Troponin I High Sens Total Protein Albumin Globulin Albumin/Globulin Ratio TSH Urine Color Alisa Urine Clarity Cloudy Urine pH 5.0 Ur Specific [place] 1.025 Urine Protein 100 H Urine Glucose (UA) Normal Urine Ketones 5 H Urine Occult Blood 250 H Urine Nitrite Negative Urine Bilirubin Negative Urine Urobilinogen 8 H Ur Leukocyte Esterase 500 H Urine RBC 25-50 SEEN Urine WBC 50-100 SEEN Ur Squamous Epith Cells 25-50 SEEN Amorphous Sediment 1+ Urine Bacteria 4+ Urine Mucus 0 SEEN Monoscreen Negative Radiography Diagnostic Testing: Clinical Impression(s) from Imaging Studies Chest X-Ray 10/09/22 22:45 IMPRESSION: Subtle ill-defined opacities projecting over the right and left lower hemithorax may represent breast tissue although pneumonia may have a similar appearance. A lateral view would be definitive. No other acute disease. Electronically Signed: Micheal Paul MD at 23:17 EDT Reading Location ID and State: [address] [place] [address] Tel , Service support , Rhythm Strip Rhythm Strip: Sinus Rhythm Rate: 92 Ectopy: None EKG Initial EKG: Attestation: I personally reviewed and interpreted this EKG as follows: Interpretation: Sinus Rhythm Comments: Normal sinus rhythm at a rate of 92 bpm Normal axis Normal intervals Normal ST segments Management Discussion w/another healthcare provider: Hospitalist Discharge Plan Dx/Rx/DC Orders Clinical Impression: UTI (urinary tract infection), Sepsis, Elevated liver enzymes Disposition Disposition: [facility] Discharge Date/Time: 10/10/22 03:55
[2022-10-09] MEDS: Acetaminophen 325 MG Tablet 650 MG PO (22:21)
[2022-10-09] MEDS: 0.9% Normal Saline 1,000 ML 999 ML IV (22:42)
--- NOTE | 2022-10-09 22:45 | RAD_ITS ---
EXAM: XR CHEST, 1 VIEW CLINICAL INDICATION: fever TECHNIQUE: Frontal view of the chest. COMPARISON: October 07, 2021 FINDINGS: LUNGS AND PLEURAL SPACES: Subtle ill-defined opacities projecting over the right and left lower hemithorax may represent breast tissue although pneumonia may have a similar appearance. No pleural effusion or pneumothorax. HEART: Unremarkable. Cardiac silhouette not enlarged. MEDIASTINUM: Central airways and mediastinal contour are unremarkable. BONES/JOINTS: Unremarkable. SOFT TISSUES: Unchanged right axillary region nodular calcification. RAD/Chest 1 View (Portable) IMPRESSION: Subtle ill-defined opacities projecting over the right and left lower hemithorax may represent breast tissue although pneumonia may have a similar appearance. A lateral view would be definitive. No other acute disease. Electronically Signed: Micheal Paul MD at 23:17 EDT ,
[2022-10-09 22:54] VITALS: BP 111/73; PULSE 85; RESP 17
[2022-10-09 23:08] LABS: Partial Thromboplast Time 32.9 Seconds (24.1-36.2)
[2022-10-09 23:13] LABS: International Normalized Ratio 1.2; Prothrombin Time (Protime)PT. 14.7 SECONDS (11.7-14.9)
[2022-10-09 23:15] LABS: Absolute Neutrophil Count 2.9 X10^3/uL (2.0-7.7); Basophil# 0.03 X10^3/uL; Basophil% 0.8 % (0-1); Eosinophil# 0.04 X10^3/uL; Eosinophils% 1.1 % (0-5); Hematocrit 43.5 % (37-47); Hemoglobin 14.5 g/dL (12.0-15.0); Lymphocyte % 15.8 % (19-41); Mean Corp Hgb Conc 33.3 g/dL (32-36); Mean Corpuscular Hgb 30.7 pg (27.0-32.0); Mean Corpuscular Volume 92.2 fL (81-99); Mean Platelet Vol. 9.7 fl (6.2-12.0); Monocyte# 0.22 X10^3/uL; Monocyte% 5.8 % (0-10); NRBC Flagged by Analyzer 0 % (0-5); Neutrophil # 2.87 X10^3/uL (2.7-7.7); Neutrophil % 75.4 % (47-70); POSITIVE DIFFERENTIAL YES; POSITIVE MORPHOLOGY YES; Platelet Count 185 K/mm3 (150-450); RBC Distribution Width CV 13.1 % (11.6-14.6); RBC Distribution Width SD 44.7 fl (35.1-43.9); Red Blood Count 4.72 M/mm3 (4.2-5.4); White Blood Count 3.8 K/mm3 (4.4-11.0)
[2022-10-09 23:19] LABS: Lactic Acid 2.3 mmol/L (0.4-1.9)
[2022-10-09 23:22] LABS: ALB/GLOB Ratio 0.9 RATIO (0.9-2.4); AST(SGOT) 1688 U/L (15-37); Alanine Aminotransfer ALT/SGPT 1924 U/L (13-56); Albumin, Serum 3.5 g/dL (3.2-5.0); Alkaline Phosphatase 98 U/L (45-117); Anion Gap 6 (5-15); BUN 11 mg/dL (7-18); BUN/Creat Ratio 14.7 RATIO (10-20); CPK Total, Creatine Kinase 42 U/L (26-192); Calcium,Total 8.5 mg/dL (8.5-10.1); Chloride 106 mmol/L (98-107); Creatinine, Serum 0.75 mg/dL (0.55-1.02); Differential Indicated SCAN CRITERIA MET; EST Glomerular Filtration Rate 90 mL/min (>60); Est Glom Filt Rate - Afr Amer 109 mL/min (>60); Estimated Creatinine Clearance 80.83 ml/min; Globulin 3.8 g/dL (2.2-4.2); Glucose 118 mg/dL (74-106); Potassium 3.1 mmol/L (3.5-5.1); Protein, Total 7.3 g/dL (6.4-8.2); Sodium Level 137 mmol/L (136-145); Thyroid Stim Hormone (TSH) 0.37 uIU/mL (0.358-3.74); Troponin-I HS 4 pg/mL (3.0-54.0)
[2022-10-09] MEDS: Metoclopramide 10 MG/2 ML Vial 5 MG IV (23:30)
[2022-10-09 23:45] VITALS: BP 97/65; PULSE 79; RESP 16; TEMP 36.3; O2SAT 98
[2022-10-09 23:59] LABS: Differential Comment SCANNED; Reactive Lymphocyte 2+
[2022-10-10] VITALS (24 sets, daily range): BP systolic 97–134; BP diastolic 56–86; PULSE 67–86; RESP 14–21; TEMP 36.6–37.8; O2SAT 96–100; BMI 21.7
[2022-10-10 00:36] LABS: Mucous, Urine 0 SEEN /hpf (<or=2+)
[2022-10-10 00:38] LABS: Nitrite-Dipstick Negative (Negative); Protein-Dipstick 100 mg/dl (Negative); Specific Gravity, Urine 1.025 (1.002-1.030); Urine Bilirubin Dipstick Negative (Negative)
[2022-10-10 00:44] LABS: Color, Urine Amber (Yellow); Urine Clarity Cloudy (Clear)
[2022-10-10 00:52] LABS: Glucose, Dipstick Normal (Normal); Ketone-Dipstick 5 mg/dl (Negative)
[2022-10-10 00:53] LABS: Leukocyte Esterase-Dipstick 500 /ul (Negative); Occult Blood-Urine 250 /ul (Negative); Urine Urobilinogen 8 mg/dl (Normal)
[2022-10-10 00:54] LABS: Amorphous Sediment 1+; Bacteria 4+ /hpf (None Seen); Red Blood Cells-Urine 25-50 SEEN /hpf (0-5); Squamous Epithelial Cells - UA 25-50 SEEN /hpf (5-10); White Blood Cells 50-100 SEEN /hpf (0-5)
[2022-10-10] MEDS: Ketorolac 15 MG/ML Vial IV (01:19)
[2022-10-10 01:35] LABS: Internal QC Validated? YES +Cl - CLEAR BKGD; Monotest Negative (Negative)
--- NOTE | 2022-10-10 02:22 | HP.PCM.HOS_ITS ---
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 She reports that she woke up and found swelling of her bilateral hands and the bilateral arms. Also swelling of her bilateral feet and her bilateral legs. Associated with her symptom is subjective fever; myalgia; nausea and vomiting. She denies chills. She denies constipation or diarrhea. She denies any urinary symptoms. [facility] Medical History Asthma Colitis Depression DVT (deep venous thrombosis) Fibromyalgia Lupus Narcolepsy Seizure Home Medications NK 10/09/22 [History Last Taken Unknown] Allergy/AdvReac Type Severity Reaction Status Date / Time azithromycin Allergy Hives Verified 10/09/22 21:49 erythromycin base Allergy Hives Verified 10/09/22 21:49 [Erythromycin Base] latex Allergy Rash Verified 10/09/22 21:49 Sulfa (Sulfonamide Allergy Hives Verified 10/09/22 21:49 Antibiotics) divalproex sodium AdvReac Rash Verified 10/09/22 21:49 [From Depakote] nitroglycerin AdvReac Vomiting Verified 10/09/22 21:49 Penicillins AdvReac Rash Verified 10/09/22 21:49 Family History Other Cancer Heart problem Pulmonary fibrosis Surgical History H/O knee surgery History of Social History (Updated 10/10/22 @ 03:[address] Miguel Angel Vargas MD) Smoking Status: Former smoker ROS ROS Narrative Pertinent positives and pertinent negatives as noted in HPI. All other systems were reviewed and are negative Vital Signs Vital Signs Vital Signs: 10/09/22 21:45 10/09/22 22:07 10/09/22 22:13 Temperature 99.0 F Temperature Source Temporal Pulse Rate 125 H Respiratory Rate 15 Respiratory Effort Normal Non-Labored Respiratory Pattern Normal Blood Pressure 126/87 H Blood Pressure Mean 100 Pulse Ox 99 Oxygen Delivery Method Room Air Room Air 10/09/22 22:54 10/10/22 00:30 Temperature Temperature Source Pulse Rate 85 79 Respiratory Rate 17 14 Respiratory Effort Respiratory Pattern Blood Pressure 111/73 97/72 Blood Pressure Mean 85 80 Pulse Ox 98 Oxygen Delivery Method Room Air Weight Weight: 55.338 kg Body Mass Index (BMI) 21.6 Physical Exam Narrative Physical exam: General: Well-nourished, well-developed. Head: Normocephalic, atraumatic, no tenderness Eyes: Vision is grossly intact. EOMI ENT, no trauma, moist mucous membranes, no rhinorrhea Neck: Nontender, No thyromegaly. CVS: Regular rate and rhythm. S1-S2 present. No murmur, gallop or rub. Respiratory : clear to auscultation bilaterally, chest wall nontender Abdomen: Soft, nontender, nondistended, normal bowel sounds, no masses : Deferred Back: Nontender, no CVA tenderness, no midline spinal tenderness, deformities, step-offs Extremities: Swelling of bilateral hands and bilateral forearms. Swelling of bilateral legs and bilateral feet. Skin: Normal color, no trauma, abrasions Neuro: Alert, oriented, cranial nerves II through XII grossly intact. Psychiatry: Normal mood. Normal affect. Not depressed. Not anxious. Results Lab / Micro Data Result Diagrams: 10/09/22 22:35 10/09/22 22:35 Labs: Laboratory Results - last 24 hr 10/09/22 22:35: WBC 3.8 L, RBC 4.72, Hgb 14.5, Hct 43.5, MCV 92.2, MCH 30.7, MCHC 33.3, RDW Std Deviation 44.7 H, RDW Coeff of Paulo 13.1, Plt Count 185, MPV 9.7, Immature Gran % (Auto) 1.100 H, Neut % (Auto) 75.4 H, Lymph % (Auto) 15.8 L , [place] % (Auto) 5.8, Eos % (Auto) 1.1, Baso % (Auto) 0.8, Absolute Neuts (auto) 2.9, Absolute Lymphs (auto) 0.60 L, Nucleated RBC % 0, Differential Comment SCANNED, Diff Path Review May foll, Reactive Lymphocytes 2+ 10/09/22 22:35: PT 14.7, INR 1.2, APTT 32.9 10/09/22 22:35: Sodium 137, Potassium 3.1 L, Chloride 106, Carbon Dioxide 25.0, Anion Gap 6, BUN 11, Creatinine 0.75, Estim Creat Clear Calc 80.83, Est GFR (M DRD) Af Amer 109, Est GFR (MDRD) Non-Af 90, BUN/Creatinine Ratio 14.7, Glucose 118 H, Calcium 8.5, Total Bilirubin 0.50, AST 1688 H, ALT 1924 H, Alkaline Phosphatase 98, Total Creatine Kinase 42, Troponin I High Sens 4, Total Protein 7.3, Albumin 3.5, Globulin 3.8, Albumin/Globulin Ratio 0.9, TSH 0.37 10/09/22 22:35: Lactic Acid 2.3 H* 10/10/22 00:05: Monoscreen Negative 10/10/22 00:25: Urine Color Alisa, Urine Clarity Cloudy, Urine pH 5.0, Ur Specific [place] 1.025, Urine Protein 100 H, Urine Glucose (UA) Normal, Urine Ketones 5 H, Urine Occult Blood 250 H, Urine Nitrite Negative, Urine Bilirubin Negative, Urine Urobilinogen 8 H, Ur Leukocyte Esterase 500 H, Urine RBC 25-50 SEEN, Urine WBC 50-100 SEEN, Ur Squamous Epith Cells 25-50 SEEN, Amorphous Sediment 1+, Urine Bacteria 4+, Urine Mucus 0 SEEN Micro: Microbiology 10/09/22 22:25 Nasal Secretion SARS-CoV-2 & FLU Antigen (Rapid) - Final Rhythm Strip Rhythm Strip: Sinus Rhythm Rate: 92 Ectopy: None Radiology Impression Chest X-Ray 10/09/22 22:45 IMPRESSION: Subtle ill-defined opacities projecting over the right and left lower hemithorax may represent breast tissue although pneumonia may have a similar appearance. A lateral view would be definitive. No other acute disease. Electronically Signed: Micheal Paul MD at 23:17 EDT , Abdomen/Pelvis CT 10/10/22 23:39 IMPRESSION: 1. Fluid within nondistended loops of small bowel and within stomach without bowel wall thickening or surrounding inflammation can be normal or can be seen with gastroenteritis in the right clinical setting. 2. No other acute or inflammatory disease or bowel obstruction. Electronically Signed: Micheal Paul MD at 2:06 EDT , Assessment & Plan Assessment/Plan (1) Sepsis: (2) UTI (urinary tract infection): (3) Gastroenteritis: (4) Elevated liver enzymes: PLAN: Plan The patient presented with sepsis due to (UTI and gastroenteritis) with acute sepsis related organ dysfunction as evidenced by (lactic acidosis). SIRS criteria: Heart rate more than 90 (heart rate of 125 on presentation) WBC less than 4000 (3800 on presentation) organ dysfunction: Lactate more than 2 mmol/L Urine culture and blood culture obtained in the emergency department, follow. CT of abdomen and pelvis interpreted by radiology as fluid within nondistended loops of small bowel and within stomach. CT abdomen pelvis was interpreted by hospitalist, agrees with the interpretation. With nausea and vomiting we will treat as gastroenteritis. Admit to the intensive care unit. Last Scourer consult. Elevated liver enzymes Acute hepatitis panel obtained at the emergency department, follow. Check EBV and CMV. Check ultrasound of liver. Check HIV. Trend CMP GI consult. DVT prophylaxis Subcutaneous Lovenox ordered. Charges/Coding Visit Charges Inpatient E&M: 16128 Init Hosp L3
[2022-10-10 02:46] LABS: Reflex Lactate? Y
[2022-10-10] MEDS: HYDROcodone Bitartrate/Apap 5/325 Tablet PO (03:15)
[2022-10-10] MEDS: 0.9% Normal Saline 1,000 ML 100 ML IV (03:16)
--- NOTE | 2022-10-10 03:18 | ED.RN ---
Pt states headache continues to be 10/10. Pt resting in bed with eyes closed, no signs of distress.
[2022-10-10 03:58] LABS: Lactic Acid 2.1 mmol/L (0.4-1.9)
[2022-10-10 04:50] LABS: Absolute Lymphocyte Count 0.67 X10^3/uL (0.83-4.51); Absolute Neutrophil Count 1.8 X10^3/uL (2.0-7.7); Basophil# 0.02 X10^3/uL; Basophil% 0.7 % (0-1); Eosinophil# 0.06 X10^3/uL; Eosinophils% 2.2 % (0-5); Hematocrit 37.3 % (37-47); Hemoglobin 12.3 g/dL (12.0-15.0); Lymphocyte # 0.67 X10^3/ul (0.83-4.51); Lymphocyte % 24.5 % (19-41); Mean Corpuscular Hgb 30.5 pg (27.0-32.0); Mean Corpuscular Volume 92.6 fL (81-99); Mean Platelet Vol. 9.9 fl (6.2-12.0); Monocyte# 0.24 X10^3/uL; Monocyte% 8.8 % (0-10); NRBC Flagged by Analyzer 0 % (0-5); Neutrophil # 1.75 X10^3/uL (2.7-7.7); Neutrophil % 63.8 % (47-70); POSITIVE MORPHOLOGY YES; Platelet Count 160 K/mm3 (150-450); RBC Distribution Width CV 13.2 % (11.6-14.6); Red Blood Count 4.03 M/mm3 (4.2-5.4); White Blood Count 2.7 K/mm3 (4.4-11.0)
[2022-10-10 04:57] LABS: Differential Indicated SCAN CRITERIA MET
[2022-10-10] MEDS: Ondansetron 4 MG/2 ML Vial IV (05:16)
[2022-10-10] MEDS: Potassium Chloride Oral Tablet 20 MEQ 60 MEQ PO (05:18)
[2022-10-10] MEDS: KCL 20MEQ in 0.9% NS 20 MEQ/1,000 ML IV.SOLN. 100 MEQ IV ×2 (05:18→19:01)
[2022-10-10] MEDS: Ciprofloxacin 400 MG/200 ML BAG 200 MG IV ×3 (05:19→22:02)
[2022-10-10 05:22] LABS: ALB/GLOB Ratio 0.9 RATIO (0.9-2.4); AST(SGOT) 1708 U/L (15-37); Alanine Aminotransfer ALT/SGPT 1765 U/L (13-56); Albumin, Serum 2.7 g/dL (3.2-5.0); Alkaline Phosphatase 103 U/L (45-117); Anion Gap 4 (5-15); BUN 12 mg/dL (7-18); BUN/Creat Ratio 21.3 RATIO (10-20); Calcium,Total 7.6 mg/dL (8.5-10.1); Chloride 110 mmol/L (98-107); Creatinine, Serum 0.56 mg/dL (0.55-1.02); EST Glomerular Filtration Rate 125 mL/min (>60); Est Glom Filt Rate - Afr Amer 151 mL/min (>60); Estimated Creatinine Clearance 108.26 ml/min; Globulin 3.1 g/dL (2.2-4.2); Glucose 101 mg/dL (74-106); Potassium 3.6 mmol/L (3.5-5.1); Protein, Total 5.8 g/dL (6.4-8.2); Sodium Level 138 mmol/L (136-145)
[2022-10-10 05:30] LABS: Atypical Lymphocyte 1+ %
[2022-10-10 05:41] LABS: HIV - WCH Non-Reactive (Nonreactive)
--- NOTE | 2022-10-10 05:55 | US_ITS ---
STUDY: ABDOMINAL ULTRASOUND - RIGHT UPPER QUADRANT REASON FOR VISIT: Female, 42 years old Elevated liver enzymes TECHNIQUE: Ultrasound evaluation of the right upper quadrant was performed with real-time and static chase-scale imaging. TECHNICAL QUALITY: Adequate. COMPARISON: None. FINDINGS: Liver: The liver measures 16.2 cm. There is diffusely increased echogenicity of the liver. The bile ducts are within normal limits. There is hepatic color flow. The direction of portal flow is hepatopetal. There is no demonstrated mass lesion. Gallbladder: Normal distended gallbladder. The gallbladder wall measures 2 mm. There is a negative sonographic Kramer''s sign. There is complex pericholecystic fluid. There are no gallstones. Common Bile Duct (C.B.D.): The common bile duct measures 6 mm. Pancreas: Normal size of the head, body and tail of the pancreas. There is normal echogenicity of the pancreas. There is no demonstrated pancreatic mass or cyst. Right Kidney: Normal size of the right kidney. The right kidney measures 10.9 x 5.8 x 4.7 cm. Normal renal cortex. The right cortex measures 1.5 cm. There is no demonstrated renal mass or cyst. There is no right hydronephrosis. US/Liver IMPRESSION: Enlarged fatty infiltrated liver.. No evidence for cholelithiasis or acute cholecystitis Borderline dilatation of the distal common bile duct without evidence for intraductal stone MRI/MRCP would be helpful for further evaluation if clinically warranted.. Electronically Signed: Luis Brito MD at 21:00 EDT ,
--- NOTE | 2022-10-10 06:51 | PCM.HOSP.N ---
Hospitalist Note Continues to have diffuse aches and swelling in her hand as well as nausea, feels generally unwell. No abd pain or diarrhea, denies having any urinary complaints, no shortness of breath. #Sepsis secondary to urinary tract infection or potential viral infection -Heart rate of 125, white blood cell count 3800, lactic acid 2.3, with acute elevation in liver enzymes -UA with 4+ bacteria as well as leuk esterase and white blood cells -CT demonstrated some fluid within nondistended loops of small bowel and within stomach which can either be normal or attributed to gastroenteritis but clinically does not appear to have gastroenteritis, does appear to have a large amount of material in stomach and rectum, could be secondary to critical illness but may need further evaluation as an outpatient, if not having bowel movements 7 may need suppositories or additional support -Broad-spectrum antibiotics, given allergy to azithromycin, sulfa, penicillins she is on Rocephin and Cipro -Pancultured -CTA negative for PE or pneumonia or any other underlying process #Myalgias -Reported history of lupus, inflammatory markers and broad work-up ordered and pending #Transaminitis -With normal bili and alk phos -Likely secondary to sepsis -Continue to trend CMP -Right upper quadrant ultrasound -Hepatitis panel pending -GI consult -On N-acetylcysteine -Broad work-up pending #History of epilepsy -Does not appear to be on any home medications at this time #History of lupus -Does not appear to be on any home medications at this time -See above #History of DVT -In past problem list but not on anticoagulation -No present PE #DVT ppx: Lovenox subcu Naima Brower MD Time spent in the patient's overall evaluation,decision-making process, review of diagnostic data, adjustment of management, discussion with other providers, nursing nursing and ancillary staff involved in patient's care documentation, 30 Minutes
--- NOTE | 2022-10-10 07:44 | CON.PCM.CC_ITS ---
Assessment & Plan Assessment/Plan (1) Sepsis: PLAN: likely due to gastroenteritis followed by self medication with Motrin and diuretic. Differential diagnosis includes a lupus flare and allergic reaction. Improved with standard sepsis management, not hypotensive or requiring pressors. Diffuse rash, possible drug reaction. Lactate remains elevated. Patient is not critically ill. - agree with hospitalist management. - infuse 1L additional saline for persistent lactic acidemia. - Immune profile to check for lupus flare ordered by GI. - Obtain serum IgE, complete respiratory PCR to screen for viruses - Empiric solumedrol 60 iv q8h IV for possible lupus flare, allergic reaction; she does not require it for asthma. Followed closely in de-escalate as soon as possible. - pantoprazole PPX 40 iv q8h - respiratory PCR to check for other viruses. - if headache worsens, with persistent fever or development of nuchal rigidity, would consider LP. - avoid further NSAID doses for now. - Discontinue Rocephin due to concern about allergic reaction, continue ciprofloxacin. - Await cultures (2) UTI (urinary tract infection): PLAN: Improved with current management; await culture results (3) Gastroenteritis: PLAN: Severely abnormal LFTs, being worked up by GI and hospitalist. No vomiting since yesterday afternoon. - agree with hospitalist management. - GI consult - (4) Asthma: PLAN: stable. - agree with hospitalist management. (5) History of venous thrombosis and embolism: PLAN: inactive. - agree with hospitalist management. - routine PPX (6) Tobacco use disorder: PLAN: smoking cessation is highly recommended in this asthmatic. (7) Narcolepsy without cataplexy: PLAN: inactive problem. - agree with hospitalist management. (8) Elevated liver enzymes: PLAN: await hepatitis profile, follow to normalization - await GI consultation with Dr. Krueger - low dose acetaminophen, if at all. - agree with hospitalist management. PLAN: Plan as above. Critical care will follow with you. Await further results to better target therapy. 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 She had fever, severe myalgias, headache N&V the day prior to admission, with decreased PO intake.? She denied dyspnea, pleurisy, cough, rash, sore throat, chest pain.?No asthma exacerbation, hand swelling continued. She took an OTC diuretic, with improvement of hand swelling but noted weakness. She denies any trauma or injury.? She took Motrin 600 mg every 6 hours and Zofran yesterday morning. She denied sick contacts, has not traveled or been in a public crowd recently. She has not been hypotensive or required pressors since arriving to ER. She received fluid resuscitation per sepsis protocol. Labs are remarkable for low WBC with left shift, elevated lactate, abnormal LFTs, hep screen pending, UA consistent with UTI. SpO2 100% on RA, and HR 71. Flu and COVID swabs were negative. Cultures and full respiratory profile pending. GI has ordered an acetylcysteine, she is on empiric ceftriaxone and ciprofloxacin. She stated that this is the worst she is ever felt including when she had meningitis. Today she complains of headache. [facility] Medical History Asthma Colitis Depression DVT (deep venous thrombosis) Fibromyalgia Lupus Narcolepsy Seizure Home Medications NK 10/09/22 [History Last Taken Unknown] Allergy/AdvReac Type Severity Reaction Status Date / Time azithromycin Allergy Hives Verified 10/09/22 21:49 erythromycin base Allergy Hives Verified 10/09/22 21:49 [Erythromycin Base] latex Allergy Rash Verified 10/09/22 21:49 Sulfa (Sulfonamide Allergy Hives Verified 10/09/22 21:49 Antibiotics) divalproex sodium AdvReac Rash Verified 10/09/22 21:49 [From Depakote] nitroglycerin AdvReac Vomiting Verified 10/09/22 21:49 Penicillins AdvReac Rash Verified 10/09/22 21:49 Family History Other Cancer Heart problem Pulmonary fibrosis Surgical History H/O knee surgery History of Social History (Updated 10/10/22 @ 03:[address] Miguel Angel Vargas MD) Smoking Status: Former smoker ROS ROS Narrative 12 system review negative except as above Physical Exam Narrative Well-developed well-nourished appears acutely ill with reddish skin diffusely. No obvious rash. HEENT normal mucous membranes, Mallampati 1 airway, no thrush, extraoculars intact, anicteric, conjunctiva noninjected. No rhinorrhea or tears. Dentition good. Neck is supple with no JVD thyromegaly or mass Lungs are clear bilaterally with no wheezes rales or rhonchi Cardiac normal S1-S2 with no murmurs rubs or gallops Abdomen is soft, nontender, no hepatomegaly or mass. deferred Extremities are with diffuse swelling, diffuse erythema, no pitting. Patient is unable to clench her hands completely due to swelling. Neuro is grossly nonfocal, alert and oriented, ambulatory. Skin is with diffuse erythematous rash. There are no suntan lines. She denies recent sun exposure. Medical Records Data Attestation: I reviewed the patient's medical records Lab / Micro Data Result Diagrams: 10/10/22 04:40 10/10/22 04:40 Labs: Laboratory Results - last 24 hr 10/09/22 22:35: WBC 3.8 L, RBC 4.72, Hgb 14.5, Hct 43.5, MCV 92.2, MCH 30.7, MCHC 33.3, RDW Std Deviation 44.7 H, RDW Coeff of Paulo 13.1, Plt Count 185, MPV 9.7, Immature Gran % (Auto) 1.100 H, Neut % (Auto) 75.4 H, Lymph % (Auto) 15.8 L , [place] % (Auto) 5.8, Eos % (Auto) 1.1, Baso % (Auto) 0.8, Absolute Neuts (auto) 2.9, Absolute Lymphs (auto) 0.60 L, Nucleated RBC % 0, Differential Comment SCANNED, Diff Path Review May foll, Reactive Lymphocytes 2+ 10/09/22 22:35: PT 14.7, INR 1.2, APTT 32.9 10/09/22 22:35: Sodium 137, Potassium 3.1 L, Chloride 106, Carbon Dioxide 25.0, Anion Gap 6, BUN 11, Creatinine 0.75, Estim Creat Clear Calc 80.83, Est GFR (MDRD) Af Amer 109, Est GFR (MDRD) Non-Af 90, BUN/Creatinine Ratio 14.7, Glucose 118 H, Calcium 8.5, Total Bilirubin 0.50, AST 1688 H, ALT 1924 H, Alkaline Phosphatase 98, Total Creatine Kinase 42, Troponin I High Sens 4, Total Protein 7.3, Albumin 3.5, Globulin 3.8, Albumin/Globulin Ratio 0.9, TSH 0.37 10/09/22 22:35: Lactic Acid 2.3 H* 10/10/22 00:05: Monoscreen Negative 10/10/22 00:25: Urine Color Alisa, Urine Clarity Cloudy, Urine pH 5.0, Ur Specific [place] 1.025, Urine Protein 100 H, Urine Glucose (UA) Normal, Urine Ketones 5 H, Urine Occult Blood 250 H, Urine Nitrite Negative, Urine Bilirubin Negative, Urine Urobilinogen 8 H, Ur Leukocyte Esterase 500 H, Urine RBC 25-50 SEEN, Urine WBC 50-100 SEEN, Ur Squamous Epith Cells 25-50 SEEN, Amorphous Sediment 1+, Urine Bacteria 4+, Urine Mucus 0 SEEN 10/10/22 03:30: Lactic Acid 2.1 H* 10/10/22 04:40: HIV 1&2 Antibody Non-Reactive 10/10/22 04:40: WBC 2.7 L, RBC 4.03 L, Hgb 12.3, Hct 37.3, MCV 92.6, MCH 30.5, MCHC 33.0, RDW Std Deviation 45.0 H, RDW Coeff of Paulo 13.2, Plt Count 160, MPV 9.9, Immature Gran % (Auto) 0.000, Neut % (Auto) 63.8, Lymph % (Auto) 24.5, [place] % (Auto) 8.8, Eos % (Auto) 2.2, Baso % (Auto) 0.7, Absolute Neuts (auto) 1.8 L, Absolute Lymphs (auto) 0.67 L, Nucleated RBC % 0, Atypical Lymphocytes 1+ 10/10/22 04:40: Sodium 138, Potassium 3.6, Chloride 110 H, Carbon Dioxide 24.0, Anion Gap 4 L, BUN 12, Creatinine 0.56, Estim Creat Clear Calc 108.26, Est GFR (MDRD) Af Amer 151, Est GFR (MDRD) Non-Af 125, BUN/Creatinine Ratio 21.3 H, Glucose 101, Calcium 7.6 L, Total Bilirubin 0.50, AST 1708 H, ALT 1765 H, Alkaline Phosphatase 103, Total Protein 5.8 L, Albumin 2.7 L, Globulin 3.1, Albumin/Globulin Ratio 0.9 Micro: Microbiology 10/09/22 22:25 Nasal Secretion SARS-CoV-2 & FLU Antigen (Rapid) - Final Rhythm Strip Rhythm Strip: Sinus Rhythm Rate: 92 Ectopy: None Radiology Impression Chest X-Ray 10/09/22 22:45 IMPRESSION: Subtle ill-defined opacities projecting over the right and left lower hemithorax may represent breast tissue although pneumonia may have a similar appearance. A lateral view would be definitive. No other acute disease. Electronically Signed: Micheal Paul MD at 23:17 EDT Reading Location ID and State: [id number] / [place] Tel , Service support , Abdomen/Pelvis CT 10/10/22 23:39 IMPRESSION: 1. Fluid within nondistended loops of small bowel and within stomach without bowel wall thickening or surrounding inflammation can be normal or can be seen with gastroenteritis in the right clinical setting. 2. No other acute or inflammatory disease or bowel obstruction. Electronically Signed: Micheal Paul MD at 2:06 EDT , Chest CTA 10/10/22 23:39 IMPRESSION: No PE, aortic dissection, pneumonia or other acute disease. AIDOC was utilized to assist in identifying pertinent positive findings. Electronically Signed: Micheal Paul MD at 2:27 EDT ,
--- NOTE | 2022-10-10 07:48 | EX.PCM.CON.G ---
HPI Consult Data Date of Consult: 10/10/22 HPI Narrative Reason for Consultation: Elevated liver enzymes HPI Narrative: GABRIELA DUARTE, is a 42 F who presents with swelling, fever and fatigue. She has a history of lupus (she does not know if this SLE or discoid lupus), prior DVT (from unknown cause), epilepsy, history of meningeal encephalitis from around viral infection and heart failure with an EF of 40% who does not take any medications on a daily basis. She presented with generalized malaise, nausea, fever and myalgias.? Patient notes about 5 days ago she started having swelling of her hands.? She started taking an [id number] diuretic, diurex, and while she reports that her swelling has improved she notes that she has had decreased urine output.? Her daughter just had a baby 2 weeks ago and she is been holding the baby a lot so she did note that is why her hands and arms were hurting.? She denies any trauma or injury.? She has a past few days she is felt very weak and is even had a hard time standing because she is so weak.? She has had nausea and yesterday pretty severe dry heaves.? States she really has been able to eat or drink much at all today.? She does admit to daily marijuana usage as her only mode of medication that she takes on a daily basis. She reports having a fever yesterday but she did not check her temperature because she states she was too weak to get off the couch.? She denies any specific shortness of breath or chest pain.? She has some chronic leg swelling but notes it is no worse than normal.? She denies any cough.? She does have a mild headache.? Denies any rash.? No other complaints at this time. I was asked to see her because she had elevated liver enzymes. She has no history of hepatitis. She does have a history of drug abuse with cocaine and methamphetamines in the past but she denies any history of IV drug abuse. She does not know if she is vaccinated for hepatitis A and hepatitis B. She has had no recent travel. She has no history of HIV. She denies any Tylenol products. She did admit to Motrin. [facility] Medical History Asthma Colitis Depression DVT (deep venous thrombosis) Fibromyalgia Lupus Narcolepsy Seizure Home Medications NK 10/09/22 [History Last Taken Unknown] Allergy/AdvReac Type Severity Reaction Status Date / Time azithromycin Allergy Hives Verified 10/09/22 21:49 erythromycin base Allergy Hives Verified 10/09/22 21:49 [Erythromycin Base] latex Allergy Rash Verified 10/09/22 21:49 Sulfa (Sulfonamide Allergy Hives Verified 10/09/22 21:49 Antibiotics) divalproex sodium AdvReac Rash Verified 10/09/22 21:49 [From Depakote] nitroglycerin AdvReac Vomiting Verified 10/09/22 21:49 Penicillins AdvReac Rash Verified 10/09/22 21:49 Family History Other Cancer Heart problem Pulmonary fibrosis Surgical History H/O knee surgery History of Social History (Updated 10/10/22 @ 03:[address] Miguel Angel Vargas MD) Smoking Status: Former smoker ROS ROS Narrative Pertinent positives and pertinent negatives as noted in HPI. All other systems were reviewed and are negative Physical Exam Narrative Physical exam: General: Well-nourished, well-developed. Head: Normocephalic, atraumatic, no tenderness Eyes: Vision is grossly intact. EOMI ENT, no trauma, moist mucous membranes, no rhinorrhea Neck: Nontender, No thyromegaly. CVS: Regular rate and rhythm. S1-S2 present. No murmur, gallop or rub. Respiratory : clear to auscultation bilaterally, chest wall nontender Abdomen: Soft, nontender, nondistended, normal bowel sounds, no masses : Deferred Back: Nontender, no CVA tenderness, no midline spinal tenderness, deformities, step-offs Extremities: Swelling of bilateral hands and bilateral forearms. Swelling of bilateral legs and bilateral feet. Skin: Normal color, no trauma, abrasions Neuro: Alert, oriented, cranial nerves II through XII grossly intact. Psychiatry: Normal mood. Normal affect. Not depressed. Not anxious. Lab / Micro Data Result Diagrams: 10/10/22 04:40 10/10/22 04:40 Labs: Laboratory Results - last 24 hr 10/09/22 22:35: WBC 3.8 L, RBC 4.72, Hgb 14.5, Hct 43.5, MCV 92.2, MCH 30.7, MCHC 33.3, RDW Std Deviation 44.7 H, RDW Coeff of Paulo 13.1, Plt Count 185, MPV 9.7, Immature Gran % (Auto) 1.100 H, Neut % (Auto) 75.4 H, Lymph % (Auto) 15.8 L, [place] % (Auto) 5.8, Eos % (Auto) 1.1, Baso % (Auto) 0.8, Absolute Neuts (auto) 2.9, Absolute Lymphs (auto) 0.60 L, Nucleated RBC % 0, Differential Comment SCANNED, Diff Path Review September, Reactive Lymphocytes 2+ 10/09/22 22:35: PT 14.7, INR 1.2, APTT 32.9 10/09/22 22:35: Sodium 137, Potassium 3.1 L, Chloride 106, Carbon Dioxide 25.0, Anion Gap 6, BUN 11, Creatinine 0.75, Estim Creat Clear Calc 80.83, Est GFR (MDRD) Af Amer 109, Est GFR (MDRD) Non-Af 90, BUN/Creatinine Ratio 14.7, Glucose 118 H, Calcium 8.5, Total Bilirubin 0.50, AST 1688 H, ALT 1924 H, Alkaline Phosphatase 98, Total Creatine Kinase 42, Troponin I High Sens 4, Total Protein 7.3, Albumin 3.5, Globulin 3.8, Albumin/Globulin Ratio 0.9, TSH 0.37 10/09/22 22:35: Lactic Acid 2.3 H* 10/10/22 00:05: Monoscreen Negative 10/10/22 00:25: Urine Color Alisa, Urine Clarity Cloudy, Urine pH 5.0, Ur Specific [place] 1.025, Urine Protein 100 H, Urine Glucose (UA) Normal, Urine Ketones 5 H, Urine Occult Blood 250 H, Urine Nitrite Negative, Urine Bilirubin Negative, Urine Urobilinogen 8 H, Ur Leukocyte Esterase 500 H, Urine RBC 25-50 SEEN, Urine WBC 50-100 SEEN, Ur Squamous Epith Cells 25-50 SEEN, Amorphous Sediment 1+, Urine Bacteria 4+, Urine Mucus 0 SEEN 10/10/22 03:30: Lactic Acid 2.1 H* 10/10/22 04:40: HIV 1&2 Antibody Non-Reactive 10/10/22 04:40: WBC 2.7 L, RBC 4.03 L, Hgb 12.3, Hct 37.3, MCV 92.6, MCH 30.5, MCHC 33.0, RDW Std Deviation 45.0 H, RDW Coeff of Paulo 13.2, Plt Count 160, MPV 9.9, Immature Gran % (Auto) 0.000, Neut % (Auto) 63.8, Lymph % (Auto) 24.5, [place] % (Auto) 8.8, Eos % (Auto) 2.2, Baso % (Auto) 0.7, Absolute Neuts (auto) 1.8 L, Absolute Lymphs (auto) 0.67 L, Nucleated RBC % 0, Atypical Lymphocytes 1+ 10/10/22 04:40: Sodium 138, Potassium 3.6, Chloride 110 H, Carbon Dioxide 24.0, Anion Gap 4 L, BUN 12, Creatinine 0.56, Estim Creat Clear Calc 108.26, Est GFR (MDRD) Af Amer 151, Est GFR (MDRD) Non-Af 125, BUN/Creatinine Ratio 21.3 H, Glucose 101, Calcium 7.6 L, Total Bilirubin 0.50, AST 1708 H, ALT 1765 H, Alkaline Phosphatase 103, Total Protein 5.8 L, Albumin 2.7 L, Globulin 3.1, Albumin/Globulin Ratio 0.9 Micro: Microbiology 10/09/22 22:25 Nasal Secretion SARS-CoV-2 & FLU Antigen (Rapid) - Final Rhythm Strip Rhythm Strip: Sinus Rhythm Rate: 92 Ectopy: None Radiology Impression Chest X-Ray 10/09/22 22:45 IMPRESSION: Subtle ill-defined opacities projecting over the right and left lower hemithorax may represent breast tissue although pneumonia may have a similar appearance. A lateral view would be definitive. No other acute disease. Electronically Signed: Micheal Paul MD at 23:17 EDT , Abdomen/Pelvis CT 10/10/22 23:39 IMPRESSION: 1. Fluid within nondistended loops of small bowel and within stomach without bowel wall thickening or surrounding inflammation can be normal or can be seen with gastroenteritis in the right clinical setting. 2. No other acute or inflammatory disease or bowel obstruction. Electronically Signed: Micheal Paul MD at 2:06 EDT , Chest CTA 10/10/22 23:39 IMPRESSION: No PE, aortic dissection, pneumonia or other acute disease. AIDOC was utilized to assist in identifying pertinent positive findings. Electronically Signed: Micheal Paul MD at 2:27 EDT , Assessment & Plan Assessment/Plan (1) Elevated liver enzymes: PLAN: The differential diagnosis for elevated liver enzymes in this patient does include rhabdomyolysis due to the fact that she was nausea and vomiting and not eating much. Also differential diagnosis and the patient has lupus is autoimmune hepatitis, with her history of psychiatric illness such as depressive disorder Delroy's disease will also be on the differential diagnosis, ischemic hepatitis secondary to nausea vomiting and history of unknown primary hypercoagulable state in a patient that smokes on a daily basis. Medication induced toxicity including Tylenol is on the differential diagnosis. Drug-induced toxicity other than Tylenol is also the differential diagnosis being that she has a history of cocaine which can cause rhabdomyolysis type picture. Recommendations: Agree with viral serologies for viral hepatitis including a and B. She should be checked for chronic hepatitis C because of her history of drug abuse although this is not a presentation of chronic hepatitis C. Hepatitis viruses that can also present like this are Argenis-Fernandez virus and cytomegalovirus which should also be checked. Due to her history of possible lupus she should be checked with autoimmune hepatitis with a smooth muscle antibody, and a liver muscle kidney antibody and JENNIFER along with IgG4 levels. Regarding her psychiatric illness she should be checked for Delroy's disease with a serum copper and ceruloplasmin level and with her history of diffuse arthritis and swelling she should be checked for secondary and primary hemochromatosis with iron, transferrin saturation and ferritin levels for screening. Recommend to put her on Mucomyst for 9 acetaminophen induced liver injury. If her CPK comes back high then it can be stopped. Recommend to check a UDS. Also recommend to check ESR, CRP, repeat lactate, LDH to see if there is any other sign of tissue or cell breakdown. Charges/Coding Visit Charges Inpatient E&M: 14061 Init Hosp L3
[2022-10-10] MEDS: Ceftriaxone 1 GM/50 ML BAG IV (08:31)
[2022-10-10] MEDS: Acetaminophen 325 MG Tablet 650 MG PO (08:32)
[2022-10-10 09:52] LABS: CPK Total, Creatine Kinase 41 U/L (26-192)
[2022-10-10 09:57] LABS: Ferritin 420 ng/mL (8-252); Iron 34 ug/dL (50-170); Iron Binding Capacity,Total 232 ug/dL (250-450); PERCENT IRON SATURATION 14.7 % (15.0-55.0)
[2022-10-10 09:58] LABS: Erythrocyte Sedimentation Rate 13 mm/hr (0-30)
[2022-10-10 10:03] LABS: LDH 810 U/L (84-246)
[2022-10-10] MEDS: Enoxaparin 40 MG/0.4 ML Syringe SC (10:04)
[2022-10-10] MEDS: 0.9% Normal Saline 1,000 ML 999 ML IV (10:34)
[2022-10-10 10:38] LABS: International Normalized Ratio 1.4; Prothrombin Time (Protime)PT. 17.4 SECONDS (11.7-14.9)
[2022-10-10 10:39] LABS: Partial Thromboplast Time 33.2 Seconds (24.1-36.2)
--- NOTE | 2022-10-10 11:14 | NURSING ---
IV infiltrated, IV fluids paused, AccessRN here to place PICC
[2022-10-10] MEDS: MethylPREDNISolone 125 MG/2 ML Vial 60 MG IV ×2 (12:26→22:03)
[2022-10-10] MEDS: proCHLORPERazine 10 MG/2 ML Vial 5 MG IV (12:34)
[2022-10-10 13:44] LABS: Pathologist Review Reviewed
--- NOTE | 2022-10-10 16:00 | NURSING ---
unable to obtain urine as it was flushed before collection made, reinforced need for urine to patient, patient's family, and staff.
[2022-10-10] MEDS: Ensure Clear 120 ML Liquid PO (17:40)
[2022-10-10 18:04] LABS: ALB/GLOB Ratio 0.8 RATIO (0.9-2.4); AST(SGOT) 1913 U/L (15-37); Alanine Aminotransfer ALT/SGPT 2252 U/L (13-56); Albumin, Serum 2.5 g/dL (3.2-5.0); Alkaline Phosphatase 105 U/L (45-117); Anion Gap 7 (5-15); BUN 7 mg/dL (7-18); BUN/Creat Ratio 12.8 RATIO (10-20); Calcium,Total 7.6 mg/dL (8.5-10.1); Chloride 111 mmol/L (98-107); Creatinine, Serum 0.55 mg/dL (0.55-1.02); EST Glomerular Filtration Rate 130 mL/min (>60); Est Glom Filt Rate - Afr Amer 157 mL/min (>60); Estimated Creatinine Clearance 110.23 ml/min; Globulin 3.3 g/dL (2.2-4.2); Glucose 163 mg/dL (74-106); Potassium 3.6 mmol/L (3.5-5.1); Protein, Total 5.8 g/dL (6.4-8.2); Sodium Level 140 mmol/L (136-145)
[2022-10-10 18:16] LABS: International Normalized Ratio 1.6; Partial Thromboplast Time 36.4 Seconds (24.1-36.2); Prothrombin Time (Protime)PT. 19.3 SECONDS (11.7-14.9)
[2022-10-10 19:32] LABS: Amphetamine Urine VISTA POSITIVE (<1000 ng/mL); Barbiturate Urine VISTA NEGATIVE (< 200 ng/mL); Benzodiazepine Urine VISTA NEGATIVE (< 200 ng/mL); Cocaine Urine VISTA NEGATIVE (< 300 ng/mL); Ecstacy Urine VISTA NEGATIVE (< 500 ng/mL); Methadone Urine VISTA NEGATIVE (< 300 ng/mL); PCP Urine VISTA NEGATIVE (< 25 ng/mL); THC Urine VISTA POSITIVE (< 50 ng/mL); Vista UDS pH Range 5
[2022-10-10 19:36] LABS: CPK Total, Creatine Kinase 35 U/L (26-192)
[2022-10-10] MEDS: proCHLORPERazine 10 MG/2 ML Vial IV (22:02)
--- NOTE | 2022-10-10 23:39 | CT_ITS ---
EXAM: CT ABDOMEN AND PELVIS WITH INTRAVENOUS CONTRAST CLINICAL INDICATION: acute transaminitis TECHNIQUE: Helically acquired images were obtained of the abdomen and pelvis with intravenous contrast. CTDIvol = ( 9.06 ) mGy, DLP = ( 644.09 ) mGycm This CT exam was performed using one or more of the following dose reduction techniques: automated exposure control, adjustment of the mA and/or kV according to patient size, and/or use of iterative reconstruction technique. CONTRAST: IV 75mL Isovue-370 COMPARISON: January 31, 2013 CT FINDINGS: LOWER THORAX: Unremarkable. Lung bases are clear. No cardiomegaly. No significant pericardial effusion. ABDOMEN: LIVER: Unremarkable. Homogeneous. No focal mass. GALLBLADDER AND BILE DUCTS: Unremarkable. No calcified gallstones. No gallbladder distention or wall edema. No intra- or extrahepatic biliary ductal dilation. PANCREAS: Unremarkable. No focal cystic or solid mass. SPLEEN: Unremarkable. Normal size without focal cystic or solid mass. ADRENALS: Unremarkable. No nodules. KIDNEYS AND URETERS: Unremarkable. Normal renal size and position. No hydronephrosis. STOMACH AND BOWEL: Fluid within nondistended loops of small bowel and within stomach without bowel wall thickening or surrounding inflammation can be normal or can be seen with gastroenteritis in the right clinical setting. No colitis, diverticulitis or bowel obstruction. PELVIS: APPENDIX: No appendicitis. BLADDER: Unremarkable. REPRODUCTIVE: Unremarkable as visualized. No mass. ABDOMEN and PELVIS: INTRAPERITONEAL SPACE: Unremarkable. No free fluid. No free air. 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 No suspicious lytic or blastic abnormality. SOFT TISSUES: Unremarkable. No discrete abdominal or pelvic wall hernia. VASCULATURE: Unremarkable. Abdominal aorta is non-dilated. LYMPH NODES: Unremarkable. No enlarged lymph nodes. CT/Abdomen/Pelvis W IV Cont ONLY IMPRESSION: 1. Fluid within nondistended loops of small bowel and within stomach without bowel wall thickening or surrounding inflammation can be normal or can be seen with gastroenteritis in the right clinical setting. 2. No other acute or inflammatory disease or bowel obstruction. Electronically Signed: Micheal Paul MD at 2:06 EDT ,
--- NOTE | 2022-10-10 23:39 | CT_ITS ---
EXAM: CT ANGIOGRAPHY CHEST WITHOUT AND WITH INTRAVENOUS CONTRAST CLINICAL INDICATION: high risk PE TECHNIQUE: Helically acquired angiography images were obtained of the chest without and with intravenous contrast. CTDIvol = ( 9.06 ) mGy, DLP = ( 644.09 ) mGycm This CT exam was performed using one or more of the following dose reduction techniques: automated exposure control, adjustment of the mA and/or kV according to patient size, and/or use of iterative reconstruction technique. MIP reconstructed images were created and reviewed. CONTRAST: IV 75mL Isovue-370 COMPARISON: No prior chest CT. FINDINGS: PULMONARY ARTERIES: Unremarkable. Normal in caliber. No evidence of pulmonary embolism. No PE. AORTA: Unremarkable. Normal in caliber. No evidence of dissection. GREAT VESSELS OF AORTIC ARCH: Unremarkable. Normal in caliber. No evidence of dissection. LUNGS AND PLEURAL SPACES: Paraseptal emphysema at the apices. No mass. No pleural effusion or thickening. No pneumothorax. No consolidation. HEART: Unremarkable. Heart size is normal. No pericardial effusion. No significant coronary artery calcifications. MEDIASTINUM: Unremarkable. No mediastinal or hilar adenopathy. Esophagus is unremarkable. No hiatal hernia. THYROID: Unremarkable. No thyroid lesions. BONES/JOINTS: Unremarkable. No suspicious lytic or blastic abnormality. CT/CTA Chest W/WO Contrast IMPRESSION: No PE, aortic dissection, pneumonia or other acute disease. AIDOC was utilized to assist in identifying pertinent positive findings. Electronically Signed: Micheal Paul MD at 2:27 EDT ,
[2022-10-11] VITALS (13 sets, daily range): BP systolic 95–132; BP diastolic 50–75; PULSE 56–100; RESP 14–24; TEMP 36.3–37.2; O2SAT 92–100; BMI 22.7
[2022-10-11 05:14] LABS: Absolute Lymphocyte Count 0.93 X10^3/uL (0.83-4.51); Basophil# 0.01 X10^3/uL; Basophil% 0.2 % (0-1); Hematocrit 35.8 % (37-47); Hemoglobin 12.1 g/dL (12.0-15.0); Lymphocyte # 0.93 X10^3/ul (0.83-4.51); Lymphocyte % 17.7 % (19-41); Mean Corp Hgb Conc 33.8 g/dL (32-36); Mean Corpuscular Hgb 31.1 pg (27.0-32.0); Mean Platelet Vol. 10.1 fl (6.2-12.0); Monocyte# 0.25 X10^3/uL; Monocyte% 4.8 % (0-10); NRBC Flagged by Analyzer 0 % (0-5); Neutrophil # 4.03 X10^3/uL (2.7-7.7); Neutrophil % 76.7 % (47-70); Platelet Count 144 K/mm3 (150-450); RBC Distribution Width CV 13.6 % (11.6-14.6); RBC Distribution Width SD 45.7 fl (35.1-43.9); Red Blood Count 3.89 M/mm3 (4.2-5.4); White Blood Count 5.3 K/mm3 (4.4-11.0)
[2022-10-11 05:56] LABS: ALB/GLOB Ratio 0.8 RATIO (0.9-2.4); AST(SGOT) 1624 U/L (15-37); Alanine Aminotransfer ALT/SGPT 2316 U/L (13-56); Albumin, Serum 2.4 g/dL (3.2-5.0); Alkaline Phosphatase 104 U/L (45-117); Anion Gap 3 (5-15); BUN 4 mg/dL (7-18); BUN/Creat Ratio 11.8 RATIO (10-20); Calcium,Total 7.6 mg/dL (8.5-10.1); Chloride 112 mmol/L (98-107); Creatinine, Serum 0.34 mg/dL (0.55-1.02); EST Glomerular Filtration Rate 224 mL/min (>60); Est Glom Filt Rate - Afr Amer 271 mL/min (>60); Estimated Creatinine Clearance 178.31 ml/min; Globulin 2.9 g/dL (2.2-4.2); Glucose 132 mg/dL (74-106); Protein, Total 5.3 g/dL (6.4-8.2); Sodium Level 138 mmol/L (136-145)
[2022-10-11] MEDS: MethylPREDNISolone 125 MG/2 ML Vial 60 MG IV ×3 (06:30→20:54)
--- NOTE | 2022-10-11 07:02 | PCM.PN.HOSP ---
Reason for Visit Reason for Visit: Diagnoses Sepsis, unspecified organism (10/10/22) Nicotine dependence, unspecified, uncomplicated (10/10/22) Narcolepsy without cataplexy (10/10/22) Unspecified asthma, uncomplicated (10/10/22) Noninfective gastroenteritis and colitis, unspecified (10/10/22) Urinary tract infection, site not specified (10/10/22) Abnormal levels of other serum enzymes (10/10/22) Personal history of other venous thrombosis and embolism (10/10/22) Subjective Subjective Still achy diffusely but is feeling better today than she had been, off-and-on headache, no diarrhea or nausea, no abdominal pain Objective Data Objective Data Vital Signs: Vital Signs Temp Pulse Resp BP Pulse Ox O2 Del Method 98.9 F 61 15 108/59 L 95 Room Air 10/11/22 00:00 10/11/22 06:00 10/11/22 06:00 10/11/22 06:00 10/11/22 06:00 10/11/22 06:00 Oxygen Delivery Method Room Air Weight: 58.3 kg Body Mass Index (BMI) 22.7 Intake & Output: Intake and Output for Last 24 Hours 10/09/22 10/10/22 10/11/22 23:59 23:59 23:59 Intake Total 3175.03 / 3175.03 0 / 0 Output Total 1600 / 1600 400 / 400 Balance 1575.03 / 1575.03 -400 / -400 Medical Nutrition Assessment Dietitian: Malnutrition Criteria Met Start: 10/10/22 09:33 Freq: Status: Active Protocol: Document 10/10/22 09:34 TREE (Rec: 10/10/22 09:34 LO [id number]) Nutrition Malnutrition Evidence of Malnutrition Exists Yes Malnutrition (severe): Acute Illness/Injury Evidenced By Suboptimal Energy Intake ( Severe),Weight Loss (Severe) Clinical Problem Acute Disease or Injury Related Malnutrition Etiology severe related to sepsis UTI and gastroenteritis Signs/Symptoms as evidenced by <50% PO intake of estimated energy needs for >5 days and 7.4lbs (5.6%) weight loss in <1 week Status Active Problem Recommendation Dietitian Recommendations/Changes ADAT to Transitional diet when medically able to manage medical conditions, goal Regular diet. RD will order 120mL Ensure Clear 4x daily to provide supplemental energy. Lab / Micro Data Result Diagrams: 10/11/22 04:41 10/11/22 04:41 Labs: Laboratory Results - last 24 hr 10/09/22 22:35: Diff Path Review Reviewed 10/10/22 04:40: ESR 13 10/10/22 04:40: Lactate Dehydrogenase 810 H, C-React Prot Ext Range 28.80 H 10/10/22 04:40: Total Creatine Kinase 41 10/10/22 04:40: Iron 34 L, TIBC 232 L, Iron Saturation 14.7 L, Ferritin 420 H 10/10/22 10:07: PT 17.4 H, INR 1.4, APTT 33.2 10/10/22 14:20: Urine Opiates Screen Cancelled, Urine Methadone Screen Cancelled, Ur Barbiturates Screen Cancelled, Ur Phencyclidine Scrn Cancelled, Ur Amphetamines Screen Cancelled, MDMA (Ecstasy) Screen Cancelled, U Benzodiazepines Scrn Cancelled, Urine Cocaine Screen Cancelled, U Cannabinoids Screen Cancelled, Ur Drug Screen Comment Cancelled 10/10/22 17:25: Total Creatine Kinase 35 10/10/22 17:25: PT 19.3 H, INR 1.6, APTT 36.4 H 10/10/22 17:25: Sodium 140, Potassium 3.6, Chloride 111 H, Carbon Dioxide 22.0, Anion Gap 7, BUN 7, Creatinine 0.55, Estim Creat Clear Calc 110.23, Est GFR (MDRD) Af Amer 157, Est GFR (MDRD) Non-Af 130, BUN/Creatinine Ratio 12.8, Glucose 163 H, Calcium 7.6 L, Total Bilirubin 1.10 H, AST 1913 H, ALT 2252 H, Alkaline Phosphatase 105, Total Protein 5.8 L, Albumin 2.5 L, Globulin 3.3, Albumin/Globulin Ratio 0.8 L 10/10/22 18:45: Urine Opiates Screen NEGATIVE, Urine Methadone Screen NEGATIVE, Ur Barbiturates Screen NEGATIVE, Ur Phencyclidine Scrn NEGATIVE, Ur Amphetamines Screen POSITIVE H, MDMA (Ecstasy) Screen NEGATIVE, U Benzodiazepines Scrn NEGATIVE, Urine Cocaine Screen NEGATIVE, U Cannabinoids Screen POSITIVE H, Ur Drug Screen Comment 10/11/22 04:41: WBC 5.3, RBC 3.89 L, Hgb 12.1, Hct 35.8 L, MCV 92.0, MCH 31.1, MCHC 33.8, RDW Std Deviation 45.7 H, RDW Coeff of Paulo 13.6, Plt Count 144 L, MPV 10.1, Immature Gran % (Auto) 0.600, Neut % (Auto) 76.7 H, Lymph % (Auto) 17.7 L, [place] % (Auto) 4.8, Eos % (Auto) 0.0, Baso % (Auto) 0.2, Absolute Neuts (auto) 4.0, Absolute Lymphs (auto) 0.93, Nucleated RBC % 0 10/11/22 04:41: Sodium 138, Potassium 4.0, Chloride 112 H, Carbon Dioxide 23.0, Anion Gap 3 L, BUN 4 L, Creatinine 0.34 L, Estim Creat Clear Calc 178.31, Est GFR (MDRD) Af Amer 271, Est GFR (MDRD) Non-Af 224, BUN/Creatinine Ratio 11.8, Glucose 132 H, Calcium 7.6 L, Total Bilirubin 1.00, AST 1624 H, ALT 2316 H, Alkaline Phosphatase 104, Total Protein 5.3 L, Albumin 2.4 L, Globulin 2.9, Albumin/Globulin Ratio 0.8 L Micro: Microbiology 10/10/22 08:54 Mucosa - Nasopharyngeal Respiratory Panel (PCR) - Final 10/09/22 22:25 Nasal Secretion SARS-CoV-2 & FLU Antigen (Rapid) - Final Radiography Diagnostic Testing: Radiology Impression Liver Ultrasound 10/10/22 05:55 IMPRESSION: Enlarged fatty infiltrated liver.. No evidence for cholelithiasis or acute cholecystitis Borderline dilatation of the distal common bile duct without evidence for intraductal stone MRI/MRCP would be helpful for further evaluation if clinically warranted.. Electronically Signed: Luis Brito MD at 21:00 EDT , Rhythm Strip Rhythm Strip: Sinus Rhythm Rate: 92 Ectopy: None Physical Exam Narrative General: Alert, oriented, no apparent distress HEENT: Atraumatic, normocephalic Eyes: Anicteric, normal conjunctiva, extraocular movements grossly intact Neck: Supple Respiratory: Clear to auscultation bilaterally, normal respiratory effort Cardiovascular: Regular rate and rhythm GI: Soft, nontender, nondistended Extremities: No edema Musculoskeletal: Moving all extremities Neuro: No overt focal neurological deficits Skin: Legs somewhat dry Psych: Cooperative Assessment & Plan Assessment/Plan (1) Sepsis: (2) UTI (urinary tract infection): (3) Gastroenteritis: (4) Elevated liver enzymes: PLAN: Plan #Transaminitis -With normal bili and alk phos -Likely secondary to sepsis -Continue to trend CMP -Right upper quadrant ultrasound -Hepatitis panel pending -GI consult -On N-acetylcysteine -Broad work-up pending -10/10: CK within normal limits, did have initial uptrend in AST ALT up to 1913 AST in 2252 ALT with AST today 1624 and ALT 2316. Received N-acetylcysteine. Still has multiple labs pending but discussed with GI and with UDS positive for amphetamines and high LDH of 810 this may be culprit. Liver ultrasound with enlarged fatty infiltrated liver with no evidence of cholelithiasis or acute cholecystitis but did have borderline dilation of distal common bile duct without evidence of intraductal stone. Continue supportive care. #Will rule out sepsis secondary to urinary tract infection -Heart rate of 125, white blood cell count 3800, lactic acid 2.3, with acute elevation in liver enzymes -UA with 4+ bacteria as well as leuk esterase and white blood cells -CT demonstrated some fluid within nondistended loops of small bowel and within stomach which can either be normal or attributed to gastroenteritis but clinically does not appear to have gastroenteritis, does appear to have a large amount of material in stomach and rectum, could be secondary to critical illness but may need further evaluation as an outpatient, if not having bowel movements 7 may need suppositories or additional support -Broad-spectrum antibiotics, given allergy to azithromycin, sulfa, penicillins she is on Rocephin and Cipro -Pancultured -CTA negative for PE or pneumonia or any other underlying process -10/10: Cultures pending, will continue antibiotics in the short-term if cultures negative will de-escalate as has multiple reasons for above findings #Hx of lupus and 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 Given her lupus anticoagulant she was on Lovenox not one of the novel agents. We will start Lovenox which patient was agreeable to and will also prescribe the time of discharge #History of epilepsy -Does not appear to be on any home medications at this time #DVT ppx: Lovenox full dose sub q Naima Brower MD Time spent in the patient's overall evaluation,decision-making process, review of diagnostic data, adjustment of management, discussion with other providers, nursing nursing and ancillary staff involved in patient's care documentation, 42 Minutes Charges/Coding Visit Charges Inpatient E&M: 37026 [facility]osp L3
[2022-10-11] MEDS: KCL 20MEQ in 0.9% NS 20 MEQ/1,000 ML IV.SOLN. 100 MEQ IV ×2 (07:25→18:20)
[2022-10-11 08:27] LABS: International Normalized Ratio 1.4; Partial Thromboplast Time 32.3 Seconds (24.1-36.2); Prothrombin Time (Protime)PT. 17.4 SECONDS (11.7-14.9)
[2022-10-11] MEDS: Ciprofloxacin 400 MG/200 ML BAG 200 MG IV ×2 (09:29→20:52)
[2022-10-11] MEDS: 0.9% Saline Lock 10 ML Syringe IV (09:31)
--- NOTE | 2022-10-11 10:37 | CASEMGMT ---
RN?CM?PACKAGE LINER?CM?to room to meet with patient for initial transition planning/care coordination?assessment.?RN?CM?introduced self and role at [facility].? Pt voices understanding and consents to?assessment?at this time.? Pt resting in bed in no distress at this time.? Pt is A/O at this time and answers all questions appropriately.?? Care providers, pharmacy, and demographics verified/updated at this time. PCP: No PCP. Provided w/local phys directory. Specialists:none Preferred Pharmacy: [facility] Retail @ discharge Insurance: My Care [facility] Prescription Benefit:?Yes. Medications: Pt to d/c home on Lovenox. She states she has used Lovenox in the past and is comfortable w/self-administration. Living Will/HPOA:?Pt does not currently have LW/HCPOA and interested in completing. Pt states she would like her sister to be POA. ZEYAD Prince, made aware. LNOK: Sister, Alice. Father, Gareth. 19-yr-old dtr, 16 yr-old son Living Arrangements: Lives w/16 yr-old son in 2-story apt. Bedroom and bath on 2nd floor. Bathroom on 1st floor also. Independent w/ADL's and IADL's Transportation:?Pt does not drive. She calls either a cab or her children's father provides transportation. Pt provided /[facility] Van transportation and she was made aware which PCP's she can utilize them for. DME: ? Denies using any DME and denies needs.? HHC/SNF: No hx of either. No needs identified. Pt wishes to return home and states has no concerns with going home at time of discharge.?CM?to follow for any further planning/needs.? Pt voices no further concerns/needs at this time.? Advised pt to ask for?CM?if any further questions/concerns/needs arise.? Voices understanding. PLAN:??Home. Pt to d/c home on Lovenox. Follow for possible PA needed. Niurka BSN?RN?CM
[2022-10-11] MEDS: Enoxaparin 100 MG/ML Syringe 90 MG SC (10:41)
--- NOTE | 2022-10-11 11:10 | PN.CC_ITS ---
Assessment & Plan Assessment/Plan (1) Elevated liver enzymes: PLAN: Starting to plateau. It may be that the patient's amphetamine use may be the main cause of her liver abnormality. So far that is the only positive lab result regarding etiology. The right upper quadrant sono showed a enlarged fatty liver, without significant biliary pathology. 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 - Avoid hepatotoxic medications and drugs - Completely stop amphetamine use -N acetylcysteine protocol is complete - Discontinue cannabis use, however patient is resistant to that idea at this time and feels that it helps her chronic fibromyalgia. (2) UTI (urinary tract infection): PLAN: Resolved. No positive cultures, consider discontinuing ciprofloxacin, or changing it to p.o. for total 5-day course. (3) Gastroenteritis: PLAN: Improving. - clear liquid diet this AM, advance as tolerated. - PPI PPX. (4) Amphetamine abuse: PLAN: The patient states that her only amphetamine use is unintentional from contamination of her marijuana supply. I am uncertain whether that is true. - Discontinue use (5) Cannabis abuse with cannabis-induced disorder: PLAN: Discontinue use, this is a likely major contributor to her constant vomiting. (6) Sepsis: PLAN: Patient has been hemodynamically stable throughout her admission. No evidence of infection PE, acute chest or intraabdominal pathology on imaging. - Viral infection remains in the differential diagnosis, continue supportive care - Await lab results PLAN: Plan Other: Patient denies any history of asthma, therefore albuterol can be discontinued. Patient states she has a lupus anticoagulant, await immune profile and serologie s to verify. - She remains on empiric steroids for now. If they come back negative, can consider discontinuing steroids. Once LFTs decrease, can consider changing to PCU status. Routine ICU PPX Physical therapy may work with patient, no restrictions. Discussed on intradisciplinary rounds. Discussed with Dr. Brower. Critical care time spent with patient at bedside, review of documentation, lab results, radiology and other test results, discussion with colleagues and ancillary staff, clinical management of patient, and updating family if applicable, was 45 minutes. [place] [address]. Subjective Subjective Feels better today, still achy, headache is better. No cough, no vomiting since yesterday, no other symptoms. Her drug screen was positive for amphetamines this admission per hospitalist. She also admitted to marijuana use on a regular basis and takes antianxiety medications. She insists that her marijuana may be laced . Objective Data Objective Data The patient was seen and examined at the bedside this morning. Events from the last 24 hours have been reviewed. The patient's most recent labs microbiology and imaging have all been personally reviewed. The case was discussed on ICU interdisciplinary rounds. Overnight: Stable. Slept well. Pertinent events include: None Vital Signs: Vital Signs Temp Pulse Resp BP Pulse Ox O2 Del Method 98.6 F 73 16 106/74 98 Room Air 10/11/22 09:00 10/11/22 09:00 10/11/22 09:00 10/11/22 09:00 10/11/22 09:00 10/11/22 09:00 Oxygen Delivery Method Room Air Weight: 128 lb 8.472 oz Body Mass Index (BMI) 22.7 Intake & Output: Intake and Output for Last 24 Hours 10/09/22 10/10/22 10/11/22 23:59 23:59 23:59 Intake Total 3175.03 / 3175.03 1624.4 / 1624.4 Output Total 1600 / 1600 900 / 900 Balance 1575.03 / 1575.03 724.4 / 724.4 Medical Nutrition Assessment Dietitian: Malnutrition Criteria Met Start: 10/10/22 09:33 Freq: Status: Active Protocol: Document 10/11/22 09:49 AG (Rec: 10/11/22 09:49 [id number]) Nutrition Malnutrition Evidence of Malnutrition Exists Yes Malnutrition (severe): Acute Illness/Injury Evidenced By Suboptimal Energy Intake ( Severe),Weight Loss (Severe) Clinical Problem Acute Disease or Injury Related Malnutrition Etiology severe related to sepsis UTI and gastroenteritis Signs/Symptoms as evidenced by <50% PO intake of estimated energy needs for >5 days and 7.4lbs (5.6%) weight loss in <1 week Status Active Problem Recommendation Dietitian Recommendations/Changes Recommend advance diet as tolerated to regular; will continue to offer 120mL Ensure Clear 4x daily for additional calories/protein if consumed. Lab / Micro Data Attestation: I reviewed the patient's lab results. Lab results narrative: Positive drug screen for cannabinoids and amphetamines were noted. Liver function test abnormalities are likely plateauing, although the ALT has increased, AST has started decreasing. Alkaline phosphatase and bilirubin are normal. PT is elevated, INR is normal. Patient has not demonstrated abnormal bleeding clinically. Calcium of 7.6 when corrected for albumin of 2.4 is normal (8.9). Liver ultrasound is negative for acute biliary pathology. Microbiology is negative to date including respiratory PCR Viral serologies are pending, immune profile is pending. CTA chest was negative. Result Diagrams: 10/11/22 04:41 10/11/22 04:41 Labs: Laboratory Results - last 24 hr 10/09/22 22:35: Diff Path Review Reviewed 10/10/22 14:20: Urine Opiates Screen Cancelled, Urine Methadone Screen Cancelled, Ur Barbiturates Screen Cancelled, Ur Phencyclidine Scrn Cancelled, Ur Amphetamines Screen Cancelled, MDMA (Ecstasy) Screen Cancelled, U Benzodiazepines Scrn Cancelled, Urine Cocaine Screen Cancelled, U Cannabinoids Screen Cancelled, Ur Drug Screen Comment Cancelled 10/10/22 17:25: Total Creatine Kinase 35 10/10/22 17:25: PT 19.3 H, INR 1.6, APTT 36.4 H 10/10/22 17:25: Sodium 140, Potassium 3.6, Chloride 111 H, Carbon Dioxide 22.0, Anion Gap 7, BUN 7, Creatinine 0.55, Estim Creat Clear Calc 110.23, Est GFR (MDRD) Af Amer 157, Est GFR (MDRD) Non-Af 130, BUN/Creatinine Ratio 12.8, Glucose 163 H, Calcium 7.6 L, Total Bilirubin 1.10 H, AST 1913 H, ALT 2252 H, Alkaline Phosphatase 105, Total Protein 5.8 L, Albumin 2.5 L, Globulin 3.3, Albumin/Globulin Ratio 0.8 L 10/10/22 18:45: Urine Opiates Screen NEGATIVE, Urine Methadone Screen NEGATIVE, Ur Barbiturates Screen NEGATIVE, Ur Phencyclidine Scrn NEGATIVE, Ur Amphetamines Screen POSITIVE H, MDMA (Ecstasy) Screen NEGATIVE, U Benzodiazepines Scrn NEGATIVE, Urine Cocaine Screen NEGATIVE, U Cannabinoids Screen POSITIVE H, Ur Drug Screen Comment 10/11/22 04:41: WBC 5.3, RBC 3.89 L, Hgb 12.1, Hct 35.8 L, MCV 92.0, MCH 31.1, MCHC 33.8, RDW Std Deviation 45.7 H, RDW Coeff of Paulo 13.6, Plt Count 144 L, MPV 10.1, Immature Gran % (Auto) 0.600, Neut % (Auto) 76.7 H, Lymph % (Auto) 17.7 L, [place] % (Auto) 4.8, Eos % (Auto) 0.0, Baso % (Auto) 0.2, Absolute Neuts (auto) 4.0, Absolute Lymphs (auto) 0.93, Nucleated RBC % 0 10/11/22 04:41: Sodium 138, Potassium 4.0, Chloride 112 H, Carbon Dioxide 23.0, Anion Gap 3 L, BUN 4 L, Creatinine 0.34 L, Estim Creat Clear Calc 178.31, Est GFR (MDRD) Af Amer 271, Est GFR (MDRD) Non-Af 224, BUN/Creatinine Ratio 11.8, Glucose 132 H, Calcium 7.6 L, Total Bilirubin 1.00, AST 1624 H, ALT 2316 H, Alkaline Phosphatase 104, Total Protein 5.3 L, Albumin 2.4 L, Globulin 2.9, Albumin/Globulin Ratio 0.8 L 10/11/22 07:55: PT 17.4 H, INR 1.4, APTT 32.3 Micro: Microbiology 10/10/22 08:54 Mucosa - Nasopharyngeal Respiratory Panel (PCR) - Final 10/09/22 22:25 Nasal Secretion SARS-CoV-2 & FLU Antigen (Rapid) - Final Radiography Diagnostic Testing: Radiology Impression CT/Abdomen/Pelvis W IV Cont ONLY 10/10/22: IMPRESSION: 1.? Fluid within nondistended loops of small bowel and within stomach without bowel wall thickening or surrounding inflammation can be normal or can be seen with gastroenteritis in the right clinical setting. 2.? No other acute or inflammatory disease or bowel obstruction. CTA chest 02/09/2023: IMPRESSION:? No PE, aortic dissection, pneumonia or other acute disease.? AIDOC was utilized to assist in identifying pertinent positive findings. ? Electronically Signed: Micheal Paul MD at 2:27 EDT Liver Ultrasound 10/10/22 05:55 IMPRESSION: Enlarged fatty infiltrated liver.. No evidence for cholelithiasis or acute cholecystitis Borderline dilatation of the distal common bile duct without evidence for intraductal stone MRI/MRCP would be helpful for further evaluation if clinically warranted.. Electronically Signed: Luis Brito MD at 21:00 EDT , Rhythm Strip Rhythm Strip: Sinus Rhythm Rate: 92 Ectopy: None
[2022-10-11 13:08] LABS: Anti-Centromere B Ab <0.2 AI (0.0-0.9); Anti-Chromatin <0.2 AI (0.0-0.9); Anti-Jo <0.2 AI (0.0-0.9); Anti-Scleroderma-70 AB <0.2 AI (0.0-0.9); Anti-dsDNA Ab 2 IU/mL (0-9); RNP Ab 0.5 AI (0.0-0.9); SJOGREN'S Anti-SS-A test < 0.2 AI (0.0-0.9); SJOGREN'S Anti-SS-B test < 0.2 AI (0.0-0.9); Smith Ab <0.2 AI (0.0-0.9)
[2022-10-11 13:08] LABS: HEPATITIS B SURFACE AG Positive (Negative); Hep C Antibodies Non Reactive (Non Reactive); Hepatitis A IgM Antibody Negative (Negative); Hepatitis B Core AB IgM Positive (Negative)
[2022-10-11 14:10] LABS: CMV Acute Antibody IgM < 30.0 AU/mL (0.0-29.9)
[2022-10-11] MEDS: Ensure Clear 120 ML Liquid PO ×2 (14:32→20:54)
--- NOTE | 2022-10-11 16:11 | CASEMGMT ---
Social Work SW received referral for Advance Directives. SW met with pt and introduced self and role of SW. SW reviewed advance directives. Pt not interested in completing at this time. SW provided documents and AD rack card. Pt stating she does not drive and has transportation concerns. SW provided pt with resources on local transportation assistance. Pt appreciative of information. No further SW needs. ZACH Cabezas
--- NOTE | 2022-10-11 17:51 | EX.PCM.PN.GI ---
Subjective Subjective Patient states that she is feeling a lot better today. She is tolerating a diet. Her urine is still dark. Objective Data Objective Data Vital Signs: Vital Signs Temp Pulse Resp BP Pulse Ox O2 Del Method 97.3 F L 100 18 132/75 H 100 Room Air 10/11/22 15:00 10/11/22 15:00 10/11/22 15:00 10/11/22 15:00 10/11/22 15:00 10/11/22 15:00 Oxygen Delivery Method Room Air Weight: 128 lb 8.472 oz Body Mass Index (BMI) 22.7 Intake & Output: Intake and Output for Last 24 Hours 10/09/22 10/10/22 10/11/22 23:59 23:59 23:59 Intake Total 3175.03 / 3175.03 1624.4 / 1624.4 Output Total 1600 / 1600 1100 / 1100 Balance 1575.03 / 1575.03 524.4 / 524.4 Medical Nutrition Assessment Dietitian: Malnutrition Criteria Met Start: 10/10/22 09:33 Freq: Status: Active Protocol: Document 10/11/22 09:49 AG (Rec: 10/11/22 09:49 AG [id number]) Nutrition Malnutrition Evidence of Malnutrition Exists Yes Malnutrition (severe): Acute Illness/Injury Evidenced By Suboptimal Energy Intake ( Severe),Weight Loss (Severe) Clinical Problem Acute Disease or Injury Related Malnutrition Etiology severe related to sepsis UTI and gastroenteritis Signs/Symptoms as evidenced by <50% PO intake of estimated energy needs for >5 days and 7.4lbs (5.6%) weight loss in <1 week Status Active Problem Recommendation Dietitian Recommendations/Changes Recommend advance diet as tolerated to regular; will continue to offer 120mL Ensure Clear 4x daily for additional calories/protein if consumed. Lab / Micro Data Result Diagrams: 10/11/22 04:41 10/11/22 04:41 Labs: Laboratory Results - last 24 hr 10/10/22 00:05: Hepatitis A IgM Ab Negative, Hep Bs Antigen Positive H, Hep B Core IgM Ab Positive H, Hepatitis C Ab (EIA) Non Reactive, Hep C Ab Comment Comment 10/10/22 04:40: CMV IgM Ab < 30.0, EBV Capsid Ag IgG Ab 183.0 H, EBV Capsid Ag IgM Ab 106.0 H, EBV Nuclear Ag IgG Ab 442.0 H, EBV Antibody Interp Comment 10/10/22 10:07: BHAVESH-1 Antibody <0.2, SS-A/Ro IgG Antibody < 0.2, SS-B/La IgG Antibody < 0.2, Sm (Phillips) Antibody <0.2, FOREIGN EXCHANGE STUDENT COORDINATOR Antibody 0.5, Scl-70 Scleroderma Ab <0.2, Double Strand DNA Ab 2, Centromere B Antibody <0.2 10/10/22 17:25: Total Creatine Kinase 35 10/10/22 17:25: PT 19.3 H, INR 1.6, APTT 36.4 H 10/10/22 17:25: Sodium 140, Potassium 3.6, Chloride 111 H, Carbon Dioxide 22.0, Anion Gap 7, BUN 7, Creatinine 0.55, Estim Creat Clear Calc 110.23, Est GFR (MDRD) Af Amer 157, Est GFR (MDRD) Non-Af 130, BUN/Creatinine Ratio 12.8, Glucose 163 H, Calcium 7.6 L, Total Bilirubin 1.10 H, AST 1913 H, ALT 2252 H, Alkaline Phosphatase 105, Total Protein 5.8 L, Albumin 2.5 L, Globulin 3.3, Albumin/Globulin Ratio 0.8 L 10/10/22 18:45: Urine Opiates Screen NEGATIVE, Urine Methadone Screen NEGATIVE, Ur Barbiturates Screen NEGATIVE, Ur Phencyclidine Scrn NEGATIVE, Ur Amphetamines Screen POSITIVE H, MDMA (Ecstasy) Screen NEGATIVE, U Benzodiazepines Scrn NEGATIVE, Urine Cocaine Screen NEGATIVE, U Cannabinoids Screen POSITIVE H, Ur Drug Screen Comment 10/11/22 04:41: WBC 5.3, RBC 3.89 L, Hgb 12.1, Hct 35.8 L, MCV 92.0, MCH 31.1, MCHC 33.8, RDW Std Deviation 45.7 H, RDW Coeff of Paulo 13.6, Plt Count 144 L, MPV 10.1, Immature Gran % (Auto) 0.600, Neut % (Auto) 76.7 H, Lymph % (Auto) 17.7 L, [place] % (Auto) 4.8, Eos % (Auto) 0.0, Baso % (Auto) 0.2, Absolute Neuts (auto) 4.0, Absolute Lymphs (auto) 0.93, Nucleated RBC % 0 10/11/22 04:41: Sodium 138, Potassium 4.0, Chloride 112 H, Carbon Dioxide 23.0, Anion Gap 3 L, BUN 4 L, Creatinine 0.34 L, Estim Creat Clear Calc 178.31, Est GFR (MDRD) Af Amer 271, Est GFR (MDRD) Non-Af 224, BUN/Creatinine Ratio 11.8, Glucose 132 H, Calcium 7.6 L, Total Bilirubin 1.00, AST 1624 H, ALT 2316 H, Alkaline Phosphatase 104, Total Protein 5.3 L, Albumin 2.4 L, Globulin 2.9, Albumin/Globulin Ratio 0.8 L 10/11/22 07:55: PT 17.4 H, INR 1.4, APTT 32.3 Micro: Microbiology 10/10/22 00:25 Urine, Clean Catch Urine Culture - Preliminary Mixed Gram Positive Organisms 10/10/22 08:54 Mucosa - Nasopharyngeal Respiratory Panel (PCR) - Final 10/09/22 22:25 Nasal Secretion SARS-CoV-2 & FLU Antigen (Rapid) - Final Radiography Diagnostic Testing: Radiology Impression Liver Ultrasound 10/10/22 05:55 IMPRESSION: Enlarged fatty infiltrated liver.. No evidence for cholelithiasis or acute cholecystitis Borderline dilatation of the distal common bile duct without evidence for intraductal stone MRI/MRCP would be helpful for further evaluation if clinically warranted.. Electronically Signed: Luis Brito MD at 21:00 EDT Reading Location ID and State: [address] [place] [address] , Service support , Rhythm Strip Rhythm Strip: Sinus Rhythm Rate: 92 Ectopy: None Physical Exam Narrative General: Alert, oriented, no apparent distress HEENT: Atraumatic, normocephalic Eyes: Anicteric, normal conjunctiva, extraocular movements grossly intact Neck: Supple Respiratory: Clear to auscultation bilaterally, normal respiratory effort Cardiovascular: Regular rate and rhythm GI: Soft, nontender, nondistended Extremities: No edema Musculoskeletal: Moving all extremities Neuro: No overt focal neurological deficits Skin: Legs somewhat dry Psych: Cooperative Assessment & Plan Assessment/Plan (1) Elevated liver enzymes: PLAN: The differential diagnosis for elevated liver enzymes in this patient does include rhabdomyolysis due to the fact that she was nausea and vomiting and not eating much. Also differential diagnosis and the patient has lupus is autoimmune hepatitis, with her history of psychiatric illness such as depressive disorder Delroy's disease will also be on the differential diagnosis, ischemic hepatitis secondary to nausea vomiting and history of unknown primary hypercoagulable state in a patient that smokes on a daily basis. Medication induced toxicity including Tylenol is on the differential diagnosis. Drug-induced toxicity other than Tylenol is also the differential diagnosis being that she has a history of cocaine which can cause rhabdomyolysis type picture. Recommendations: Agree with viral serologies for viral hepatitis including a and B. She should be checked for chronic hepatitis C because of her history of drug abuse although this is not a presentation of chronic hepatitis C. Hepatitis viruses that can also present like this are Argenis-Fernandez virus and cytomegalovirus which should also be checked. Due to her history of possible lupus she should be checked with autoimmune hepatitis with a smooth muscle antibody, and a liver muscle kidney antibody and JENNIFER along with IgG4 levels. Regarding her psychiatric illness she should be checked for Delroy's disease with a serum copper and ceruloplasmin level and with her history of diffuse arthritis and swelling she should be checked for secondary and primary hemochromatosis with iron, transferrin saturation and ferritin levels for screening. Recommend to put her on Mucomyst for 9 acetaminophen induced liver injury. If her CPK comes back high then it can be stopped. Recommend to check a UDS. Also recommend to check ESR, CRP, repeat lactate, LDH to see if there is any other sign of tissue or cell breakdown. 6/7: Labs are consistent with acute hepatitis B versus acute on chronic hepatitis B. We will need hepatitis Be antigen and hepatitis Be antibody and hepatitis B and PCR DNA quant. We also need her to be checked for hepatitis D. As you can only get acute hepatitis D with B and she is high risk for coinfection. She completed Mucomyst for drug-induced hepatitis. Repeat ESR, CRP, LDH. There is no recommendation regarding antiviral or retroviral treatment for acute hepatitis B. Charges/Coding Visit Charges Inpatient E&M: 06142 Subs Hosp L3
[2022-10-11 18:11] LABS: Hepatitis B Surf AB - EMP Non-Reactive
[2022-10-11] MEDS: Rizatriptan Benzoate 5 MG Tablet PO (22:44)
[2022-10-11] MEDS: MELATONIN 3 MG TABLET PO (22:44)
[2022-10-12 03:46] VITALS: BMI 23.1
[2022-10-12 03:50] VITALS: BP 106/63; PULSE 68; RESP 14; TEMP 36.6; O2SAT 98
[2022-10-12] MEDS: MethylPREDNISolone 125 MG/2 ML Vial 60 MG IV (05:26)
[2022-10-12 05:34] LABS: Absolute Lymphocyte Count 1.13 X10^3/uL (0.83-4.51); Basophil# 0.03 X10^3/uL; Basophil% 0.4 % (0-1); Hematocrit 33.4 % (37-47); Hemoglobin 11.1 g/dL (12.0-15.0); Lymphocyte # 1.13 X10^3/ul (0.83-4.51); Lymphocyte % 13.2 % (19-41); Mean Corp Hgb Conc 33.2 g/dL (32-36); Mean Corpuscular Hgb 30.7 pg (27.0-32.0); Mean Corpuscular Volume 92.5 fL (81-99); Mean Platelet Vol. 10.7 fl (6.2-12.0); Monocyte# 0.37 X10^3/uL; Monocyte% 4.3 % (0-10); NRBC Flagged by Analyzer 0 % (0-5); Neutrophil # 6.96 X10^3/uL (2.7-7.7); Neutrophil % 81.6 % (47-70); Platelet Count 154 K/mm3 (150-450); RBC Distribution Width CV 13.7 % (11.6-14.6); RBC Distribution Width SD 46.7 fl (35.1-43.9); Red Blood Count 3.61 M/mm3 (4.2-5.4); White Blood Count 8.5 K/mm3 (4.4-11.0)
[2022-10-12 05:58] LABS: ALB/GLOB Ratio 0.8 RATIO (0.9-2.4); AST(SGOT) 988 U/L (15-37); Alanine Aminotransfer ALT/SGPT 2214 U/L (13-56); Albumin, Serum 2.4 g/dL (3.2-5.0); Alkaline Phosphatase 108 U/L (45-117); Anion Gap 3 (5-15); BUN 6 mg/dL (7-18); BUN/Creat Ratio 13.6 RATIO (10-20); Calcium,Total 8.1 mg/dL (8.5-10.1); Chloride 114 mmol/L (98-107); Creatinine, Serum 0.44 mg/dL (0.55-1.02); EST Glomerular Filtration Rate 167 mL/min (>60); Est Glom Filt Rate - Afr Amer 202 mL/min (>60); Estimated Creatinine Clearance 137.78 ml/min; Globulin 3.2 g/dL (2.2-4.2); Glucose 132 mg/dL (74-106); Protein, Total 5.6 g/dL (6.4-8.2); Sodium Level 142 mmol/L (136-145)
--- NOTE | 2022-10-12 08:13 | PCM.PN.HOSP ---
Reason for Visit Reason for Visit: Diagnoses Sepsis, unspecified organism (10/10/22) Cannabis abuse with unspecified cannabis-induced disorder (10/10/22) Other stimulant abuse, uncomplicated (10/10/22) Nicotine dependence, unspecified, uncomplicated (10/10/22) Narcolepsy without cataplexy (10/10/22) Unspecified asthma, uncomplicated (10/10/22) Noninfective gastroenteritis and colitis, unspecified (10/10/22) Urinary tract infection, site not specified (10/10/22) Abnormal levels of other serum enzymes (10/10/22) Personal history of other venous thrombosis and embolism (10/10/22) Subjective Subjective Patient is feeling better today, still achy and generally unwell but anxious to get home Objective Data Objective Data Vital Signs: Vital Signs Temp Pulse Resp BP Pulse Ox O2 Del Method 97.9 F 68 14 106/63 98 Room Air 10/12/22 03:50 10/12/22 03:50 10/12/22 03:50 10/12/22 03:50 10/12/22 03:50 10/12/22 03:50 Oxygen Delivery Method Room Air Weight: 59.4 kg Body Mass Index (BMI) 23.1 Intake & Output: Intake and Output for Last 24 Hours 10/10/22 10/11/22 10/12/22 23:59 23:59 23:59 Intake Total 3175.03 / 3175.03 1934.4 / 1934.4 Output Total 1600 / 1600 1100 / 1100 0 / 0 Balance 1575.03 / 1575.03 834.4 / 834.4 0 / 0 Medical Nutrition Assessment Dietitian: Malnutrition Criteria Met Start: 10/10/22 09:33 Freq: Status: Active Protocol: Document 10/11/22 09:49 AG (Rec: 10/11/22 09:49 AG [id number]) Nutrition Malnutrition Evidence of Malnutrition Exists Yes Malnutrition (severe): Acute Illness/Injury Evidenced By Suboptimal Energy Intake ( Severe),Weight Loss (Severe) Clinical Problem Acute Disease or Injury Related Malnutrition Etiology severe related to sepsis UTI and gastroenteritis Signs/Symptoms as evidenced by <50% PO intake of estimated energy needs for >5 days and 7.4lbs (5.6%) weight loss in <1 week Status Active Problem Recommendation Dietitian Recommendations/Changes Recommend advance diet as tolerated to regular; will continue to offer 120mL Ensure Clear 4x daily for additional calories/protein if consumed. Lab / Micro Data Result Diagrams: 10/12/22 05:15 10/12/22 05:15 Labs: Laboratory Results - last 24 hr 10/10/22 00:05: Hepatitis A IgM Ab Negative, Hep Bs Antigen Positive H, Hep B Core IgM Ab Positive H, Hepatitis C Ab (EIA) Non Reactive, Hep C Ab Comment Comment 10/10/22 04:40: CMV IgM Ab < 30.0, EBV Capsid Ag IgG Ab 183.0 H, EBV Capsid Ag IgM Ab 106.0 H, EBV Nuclear Ag IgG Ab 442.0 H, EBV Antibody Interp Comment 10/10/22 10:07: BHAVESH-1 Antibody <0.2, SS-A/Ro IgG Antibody < 0.2, SS-B/La IgG Antibody < 0.2, Sm (Phillips) Antibody <0.2, FIELD SERVICE SPECIALIST Antibody 0.5, Scl-70 Scleroderma Ab <0.2, Double Strand DNA Ab 2, Centromere B Antibody <0.2 10/11/22 07:55: PT 17.4 H, INR 1.4, APTT 32.3 10/11/22 14:20: Hep Bs Antibody Non-Reactive 10/12/22 05:15: WBC 8.5, RBC 3.61 L, Hgb 11.1 L, Hct 33.4 L, MCV 92.5, MCH 30.7, MCHC 33.2, RDW Std Deviation 46.7 H, RDW Coeff of Paulo 13.7, Plt Count 154, MPV 10.7, Immature Gran % (Auto) 0.500, Neut % (Auto) 81.6 H, Lymph % (Auto) 13.2 L, [place] % (Auto) 4.3, Eos % (Auto) 0.0, Baso % (Auto) 0.4, Absolute Neuts (auto) 7.0, Absolute Lymphs (auto) 1.13, Nucleated RBC % 0 10/12/22 05:15: Sodium 142, Potassium 4.0, Chloride 114 H, Carbon Dioxide 25.0, Anion Gap 3 L, BUN 6 L, Creatinine 0.44 L, Estim Creat Clear Calc 137.78, Est GFR (MDRD) Af Amer 202, Est GFR (MDRD) Non-Af 167, BUN/Creatinine Ratio 13.6, Glucose 132 H, Calcium 8.1 L, Total Bilirubin 1.00, AST 988 H, ALT 2214 H, Alkaline Phosphatase 108, Total Protein 5.6 L, Albumin 2.4 L, Globulin 3.2, Albumin/Globulin Ratio 0.8 L Micro: Microbiology 10/09/22 23:05 Blood Culture (Wb) - Right Hand Blood Culture - Preliminary No growth in 48 hours. 10/09/22 22:35 Blood Culture (Wb) - Right Hand Blood Culture - Preliminary No growth in 48 hours. 10/10/22 00:25 Urine, Clean Catch Urine Culture - Preliminary Mixed Gram Positive Organisms 10/10/22 08:54 Mucosa - Nasopharyngeal Respiratory Panel (PCR) - Final 10/09/22 22:25 Nasal Secretion SARS-CoV-2 & FLU Antigen (Rapid) - Final Rhythm Strip Rhythm Strip: Sinus Rhythm Rate: 92 Ectopy: None Physical Exam Narrative General: Alert, oriented, no apparent distress HEENT: Atraumatic, normocephalic Eyes: Anicteric, normal conjunctiva, extraocular movements grossly intact Neck: Supple Respiratory: Clear to auscultation bilaterally, normal respiratory effort Cardiovascular: Regular rate and rhythm GI: Soft, nontender, nondistended Extremities: No edema Musculoskeletal: Moving all extremities Neuro: No overt focal neurological deficits Skin: No overt rashes Psych: Cooperative Assessment & Plan Assessment/Plan (1) Sepsis: (2) UTI (urinary tract infection): (3) Gastroenteritis: (4) Elevated liver enzymes: PLAN: Plan #Transaminitis on top of hepatitis B, unclear thus far if acute versus chronic -With normal bili and alk phos -Likely secondary to sepsis -Continue to trend CMP -Right upper quadrant ultrasound -Hepatitis panel pending -GI consult -On N-acetylcysteine -Broad work-up pending -10/10: CK within normal limits, did have initial uptrend in AST ALT up to 1913 AST in 2252 ALT with AST today 1624 and ALT 2316. Received N-acetylcysteine. Still has multiple labs pending but discussed with GI and with UDS positive for amphetamines and high LDH of 810 this may be culprit. Liver ultrasound with enlarged fatty infiltrated liver with no evidence of cholelithiasis or acute cholecystitis but did have borderline dilation of distal common bile duct without evidence of intraductal stone. Continue supportive care. -10/12: Hep B surface antigen and core IgM antibodies both positive with a negative hep B surface antibody but need hepatitis B eAg and eAb as well as PCR DNA quant for further determination if acute or chronic hep B. Both AST and ALT downtrending today #EBV antibody positive -Patient not only has capsid IgG and IgM antibody positive which would typically indicate acute infection but also has nuclear IgG antibody which is not seen in the acute phase of EBV typically indicating past infection. Based on pattern suspect past EBV infection #Sepsis secondary to UTI ruled out -Heart rate of 125, white blood cell count 3800, lactic acid 2.3, with acute elevation in liver enzymes -UA with 4+ bacteria as well as leuk esterase and white blood cells -CT demonstrated some fluid within nondistended loops of small bowel and within stomach which can either be normal or attributed to gastroenteritis but clinically does not appear to have gastroenteritis, does appear to have a large amount of material in stomach and rectum, could be secondary to critical illness but may need further evaluation as an outpatient, if not having bowel movements 7 may need suppositories or additional support -Broad-spectrum antibiotics, given allergy to azithromycin, sulfa, penicillins she is on Rocephin and Cipro -Pancultured -CTA negative for PE or pneumonia or any other underlying process -10/10: Cultures pending, will continue antibiotics in the short-term if cultures negative will de-escalate as has multiple reasons for above findings -10/12: Given acute presentation patient had sepsis eval with most likely source being urinary given bacteria seen in urine despite patient not having symptoms however urine culture growing mixed re with suspected contaminant and blood cultures no growth to date. 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 Given her lupus anticoagulant she was on Lovenox not one of the novel agents. We will start Lovenox which patient was agreeable to and will also prescribe the time of discharge #History of epilepsy -Does not appear to be on any home medications at this time #DVT ppx: Lovenox full dose sub q Naima Brower MD Time spent in the patient's overall evaluation,decision-making process, review of diagnostic data, adjustment of management, discussion with other providers, nursing nursing and ancillary staff involved in patient's care documentation, 42 Minutes Charges/Coding Visit Charges Inpatient E&M: 96790 Subs Hosp L3
--- NOTE | 2022-10-12 09:30 | PN.GI_ITS ---
Subjective Subjective Patient's abdominal pain is gotten a lot better. I explained to her that it was likely secondary to stretch of the liver from acute viral hepatitis. Objective Data Objective Data Vital Signs: Vital Signs Temp Pulse Resp BP Pulse Ox O2 Del Method 98.0 F 86 14 103/65 99 Room Air 10/12/22 13:51 10/12/22 13:51 10/12/22 13:51 10/12/22 13:51 10/12/22 13:51 10/12/22 13:51 Oxygen Delivery Method Room Air Weight: 130 lb 15.273 oz Body Mass Index (BMI) 23.1 Intake & Output: Intake and Output for Last 24 Hours 10/10/22 10/11/22 10/12/22 23:59 23:59 23:59 Intake Total 3175.03 / 3175.03 1934.4 / 1934.4 1118.33 / 1118.33 Output Total 1600 / 1600 1100 / 1100 0 / 0 Balance 1575.03 / 1575.03 834.4 / 834.4 1118.33 / 1118.33 Lab / Micro Data Result Diagrams: 10/12/22 05:15 10/12/22 05:15 Labs: Laboratory Results - last 24 hr 10/10/22 10:07: Haptoglobin 166, Transferrin 174 L, Ceruloplasmin 24.3, Serum Copper 124, IgA 172, Endomysial IgA Ab Negative, Tiss Transglutamin IgG 2, Tiss Transglutamin IgA <2, Anti-Gliadin IgG Ab 5, Anti-Gliadin IgA Ab 5 10/10/22 10:07: IgG Total 934, IgG1 472, IgG2 243, IgG3 116 H, IgG4 73, Parvovirus B19 IgG Ab 5.8 H, Parvovirus B19 IgM Ab 0.2 10/11/22 14:20: Hep Bs Antibody Non-Reactive 10/12/22 05:15: WBC 8.5, RBC 3.61 L, Hgb 11.1 L, Hct 33.4 L, MCV 92.5, MCH 30.7, MCHC 33.2, RDW Std Deviation 46.7 H, RDW Coeff of Paulo 13.7, Plt Count 154, MPV 10.7, Immature Gran % (Auto) 0.500, Neut % (Auto) 81.6 H, Lymph % (Auto) 13.2 L, [place] % (Auto) 4.3, Eos % (Auto) 0.0, Baso % (Auto) 0.4, Absolute Neuts (auto) 7.0, Absolute Lymphs (auto) 1.13, Nucleated RBC % 0 10/12/22 05:15: Sodium 142, Potassium 4.0, Chloride 114 H, Carbon Dioxide 25.0, Anion Gap 3 L, BUN 6 L, Creatinine 0.44 L, Estim Creat Clear Calc 137.78, Est GFR (MDRD) Af Amer 202, Est GFR (MDRD) Non-Af 167, BUN/Creatinine Ratio 13.6, Glucose 132 H, Calcium 8.1 L, Total Bilirubin 1.00, AST 988 H, ALT 2214 H, Alkaline Phosphatase 108, Total Protein 5.6 L, Albumin 2.4 L, Globulin 3.2, [place] min/Globulin Ratio 0.8 L Micro: Microbiology 10/10/22 00:25 Urine, Clean Catch Urine Culture - Final Mixed Gram Positive Organisms 10/09/22 23:05 Blood Culture (Wb) - Right Hand Blood Culture - Preliminary No growth in 48 hours. 10/09/22 22:35 Blood Culture (Wb) - Right Hand Blood Culture - Preliminary No growth in 48 hours. 10/10/22 08:54 Mucosa - Nasopharyngeal Respiratory Panel (PCR) - Final 10/09/22 22:25 Nasal Secretion SARS-CoV-2 & FLU Antigen (Rapid) - Final Rhythm Strip Rhythm Strip: Sinus Rhythm Rate: 92 Ectopy: None Physical Exam Narrative General: Alert, oriented, no apparent distress HEENT: Atraumatic, normocephalic Eyes: Anicteric, normal conjunctiva, extraocular movements grossly intact Neck: Supple Respiratory: Clear to auscultation bilaterally, normal respiratory effort Cardiovascular: Regular rate and rhythm GI: Soft, nontender, nondistended Extremities: No edema Musculoskeletal: Moving all extremities Neuro: No overt focal neurological deficits Skin: No overt rashes Psych: Cooperative Assessment & Plan Assessment/Plan (1) Elevated liver enzymes: PLAN: The differential diagnosis for elevated liver enzymes in this patient does include rhabdomyolysis due to the fact that she was nausea and vomiting and not eating much. Also differential diagnosis and the patient has lupus is autoimmune hepatitis, with her history of psychiatric illness such as depressive disorder Delroy's disease will also be on the differential diagnosis, ischemic hepatitis secondary to nausea vomiting and history of unknown primary hypercoagulable state in a patient that smokes on a daily basis. Medication induced toxicity including Tylenol is on the differential diagnosis. Drug- induced toxicity other than Tylenol is also the differential diagnosis being that she has a history of cocaine which can cause rhabdomyolysis type picture. Recommendations: Agree with viral serologies for viral hepatitis including a and B. She should be checked for chronic hepatitis C because of her history of drug abuse although this is not a presentation of chronic hepatitis C. Hepatitis viruses that can also present like this are Argenis-Fernandez virus and cytomegalovirus which should also be checked. Due to her history of possible lupus she should be checked with autoimmune hepatitis with a smooth muscle antibody, and a liver muscle kidney antibody and JENNIFER along with IgG4 levels. Regarding her psychiatric illness she should be checked for Delroy's disease with a serum copper and ceruloplasmin level and with her history of diffuse arthritis and swelling she should be checked for secondary and primary hemochromatosis with iron, transferrin saturation and ferritin levels for screening. Recommend to put her on Mucomyst for 9 acetaminophen induced liver injury. If her CPK comes back high then it can be stopped. Recommend to check a UDS. Also recommend to check ESR, CRP, repeat lactate, LDH to see if there is any other sign of tissue or cell breakdown. 10/12: Labs are consistent with acute hepatitis B versus acute on chronic hepatitis B. We will need hepatitis Be antigen and hepatitis Be antibody and hepatitis B and PCR DNA quant. We also need her to be checked for hepatitis D. As you can only get acute hepatitis D with B and she is high risk for coinfection. She completed Mucomyst for drug-induced hepatitis. Repeat ESR, CRP, LDH. There is no recommendation regarding antiviral or retroviral treatment for acute hepatitis B. Charges/Coding Visit Charges Inpatient E&M: 03635 Subs Hosp L3
[2022-10-12 09:50] VITALS: BP 102/63; PULSE 84; RESP 16; TEMP 36.6; O2SAT 98
[2022-10-12] MEDS: Enoxaparin 100 MG/ML Syringe 90 MG SC (10:51)
[2022-10-12] MEDS: 0.9% Saline Lock 10 ML Syringe IV (10:51)
[2022-10-12] MEDS: Ensure Clear 120 ML Liquid PO ×2 (10:51→13:23)
[2022-10-12] MEDS: KCL 20MEQ in 0.9% NS 20 MEQ/1,000 ML IV.SOLN. 100 MEQ IV (10:58)
[2022-10-12] MEDS: Rizatriptan Benzoate 5 MG Tablet PO (10:59)
--- NOTE | 2022-10-12 11:42 | CASEMGMT ---
Addendum entered by Gualberto Strauss 10/12/22 12:28: Spoke w/Fredi @ [facility] Retail pharmacy. No Prior auth required for Lovenox. Original Note: LAURI LAMAS NOTE: Pt being discharged home today and Dr Brower requesting pt be seen by PCP w/in 2 weeks. LAURI LAMAS to room. Pt states has looked over the PCP directory and 1st preference is w/[facility] and states would appreciate assistance w/getting appt to get established as a new pt. Call placed to [facility]. Dr Khan is scheduling new pt appt's a couple of months, but Dr Du has an appt 10/19 @ 3 PM. Appt scheduled at that time w/Dr Du. Pt to arrive @ 2:30 PM. Pt made aware of the above and voices appreciation. Pt asked if [facility] van transp could be set up for that appt. Call placed to [facility] who states they do not have availability at that time. Pt made aware and offered to change the appt to a different time/date when [facility] van would be available. She declines wanting the appt to be changed and states she will have no problem w/getting a cab to the appt. Niurka HORTA RN, CM
--- NOTE | 2022-10-12 11:55 | DCINST_ITS ---
Discharge Instructions Diet Discharge Diet: No restrictions Activity Discharge Activity: Return to Normal Activity Follow Up Care Test Results: Test results from this visit will be discussed in further detail at your follow- up appointment, if applicable. Discharge Plan Admission Admit Date/Time: 10/10/22 02:34 Primary Reason for Your Visit: Generalized aches and arm swelling Attending Provider: Naima Brower Primary Care Provider: Care Physician,No Primary Consulting Providers: Miguel Angel Vargas ; Bro Krueger ; Tutu García Instructions Patient Instructions: HBV, ED Hepatitis, Viral (Type B) Additional Instructions / Restrictions: DISCHARGE INSTRUCTIONS PLEASE READ *Please take this with you to your next doctors appointment* -You will be discharged with a prescription for Lovenox that you will use subcutaneous once daily due to your history of blood clots, you indicated you have used this in the past and are aware of how to use this -You will need to follow-up with Dr. Krueger with GI in his office upon discharge. Please call his office to schedule your hospital follow-up appointment (ph. [phone]) -Would recommend lab work (CMP) to check your liver function at your establish care appointment with your new primary care physician 10/19/2022 at 3 PM -Would advise not taking Tylenol or NSAIDs such as ibuprofen and naproxen until cleared to do so by your physician as this can worsen your liver -Strongly advise not drinking alcohol at this time and would avoid any additional substance use -Information on hepatitis B provided in hospital discharge packet -For any concerning signs or symptoms please call 911 or proceed to the nearest emergency department Discharge Orders/Prescriptions Prescriptions: New enoxaparin [Lovenox] 100 mg/mL syringe 90 mg subcut DAILY Qty: 30 2RF Referrals / Follow Up: Colleen Du MD [Med Staff - Active Staff] - 10/19/22 3:00 pm (Please arrive to appt @ 2:30 PM to complete paperwork. ) Bro Krueger DO [Med Staff - Active Staff] - See Referral Note ( -You will need to follow-up with Dr. Krueger with GI in his office upon discharge. Please call his office to schedule your hospital follow-up appointment (ph. [phone])) Disposition Disposition (needs filled in before D/C Order can be placed): Home, Self Care
--- NOTE | 2022-10-12 12:05 | DS.PCM_ITS ---
Providers Date of Admission: 10/10/22 Date of Discharge: 10/12/22 Primary Care Physician: Milena Primary Care Phys Consultations 10/10/22 04:12 Consult: Gastroenterology Routine Consulting Provider: Bro Krueger Reason for Consult: elevated liver enzymes EMERGENT Consult: No Notified: Yes Date Notified: 10/10/22 Time Notified: 07:27 Method of Notification: Text Consult: Project Development Coordinator / Pulmonary Medicine Routine Consulting Provider: Tutu García Reason for Consult: Sepsis EMERGENT Consult: No Notified: Yes Date Notified: 10/10/22 Time Notified: 03:04 Method of Notification: Text Method of Consult:: Telemedicine Reason For Visit: Swelling in hands and generalized aches Diagnosis Discharge Diagnosis (1) Elevated liver enzymes: Status: Acute Code(s): R74.8 - Abnormal levels of other serum enzymes (2) Hepatitis B: Status: Acute Code(s): B19.10 - Unspecified viral hepatitis B without hepatic coma Plan #hepatitis B, unclear thus far if acute versus chronic/transaminitis #EBV antibody positive #Hx of lupus and lupus anticoagulant with history of multiple DVTs #?History of epilepsy per chart review #sepsis 2/2 UTI is ruled out Medications at Discharge Home Medications enoxaparin 100 mg/mL subcutaneous syringe (Lovenox) 90 mg (0.9 mL) subcut DAILY #30 mL 10/12/22 Hospital Course Summary of Care Provided Minutes Spent on Discharge: 45 Hospital Course: 42-year-old female with history of lupus, 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 She had an elevated lactate and was tachycardic and had a white blood cell count of 3.8 and she initially had bronc cultures and was started on broad-spectrum antibiotics due to concerns for sepsis likely secondary to UTI given UA findings. She was found however to have AST/ALT of 1900 and 2200 respectively and GI was consul suyapa. Given her reported history of lupus and her seeming systemic inflammation she is continued on broad-spectrum antibiotics but broad work-up obtained. She is given N-acetylcysteine while labs are pending. Initial uptrend in AST and ALT which then began to improve, UDS positive for marijuana amphetamines. Patient denies amphetamine use but said somebody may have laced her marijuana with it. She ultimately was found to have have Hep B surface antigen and core IgM antibodies both positive with a negative hep B surface antibody but need hepatitis B eAg and eAb as well as PCR DNA quant for further determination if acute or chronic hep B. Suspicion is patient may have acute hep B. Discussed with GI and no acute treatment is indicated at this time. Patient symptomatically improving and okay for discharge. Antibiotics stopped, cultures negative and sepsis ruled out. Additionally on labs patient was EBV antibody positive. Patient not only has capsid IgG and IgM antibody positive which would typically indicate acute infection but also has nuclear IgG antibody which is not seen in the acute phase of EBV typically indicating past infection.? Based on pattern suspect past EBV infection in the capsid IgG and IgM will continue to downtrend with nuclear IgG continuing to uptrend. During her admission we also discussed her history of multiple DVTs, she had previously failed Coumadin and was not a candidate for more novel agents due to her lupus anticoagulant so she previously was maintained on full dose Lovenox. Discussed with her now that she has a new grandchild she is agreeable to resuming Lovenox. This was resumed during hospitalization. On day of discharge she reports feeling achy but is anxious to go home. She has had no abdominal pain, nausea, diarrhea. Discharge instructions as follows: DISCHARGE INSTRUCTIONS PLEASE READ *Please take this with you to your next doctors appointment* -You will be discharged with a prescription for Lovenox that you will use subcutaneous once daily due to your history of blood clots, you indicated you have used this in the past and are aware of how to use this -You will need to follow-up with Dr. Krueger with [facility] in his office upon discharge.? Please call his office to schedule your hospital follow-up appointment (ph. [phone]) -Would recommend lab work (CMP) to check your liver function at your establish care appointment with your new primary care physician 10/19/2022 at 3 PM -Would advise not taking Tylenol or NSAIDs such as ibuprofen and naproxen until cleared to do so by your physician as this can worsen your liver -Strongly advise not drinking alcohol at this time and would avoid any additional substance use -Information on hepatitis B provided in hospital discharge packet -For any concerning signs or symptoms please call 911 or proceed to the nearest emergency department Physical Exam Narrative General: Alert, oriented, no apparent distress HEENT: Atraumatic, normocephalic Eyes: Anicteric, normal conjunctiva, extraocular movements grossly intact Neck: Supple Respiratory: Clear to auscultation bilaterally, normal respiratory effort Cardiovascular: Regular rate and rhythm GI: Soft, nontender, nondistended Extremities: No edema Musculoskeletal: Moving all extremities Neuro: No overt focal neurological deficits Skin: No overt rashes Psych: Cooperative Medical Records Data Medical Nutrition Assessment Dietitian: Malnutrition Criteria Met Start: 10/10/22 09:33 Freq: Status: Active Protocol: Document 10/11/22 09:49 AG (Rec: 10/11/22 09:49 AG [id number]) Nutrition Malnutrition Evidence of Malnutrition Exists Yes Malnutrition (severe): Acute Illness/Injury Evidenced By Suboptimal Energy Intake ( Severe),Weight Loss (Severe) Clinical Problem Acute Disease or Injury Related Malnutrition Etiology severe related to sepsis UTI and gastroenteritis Signs/Symptoms as evidenced by <50% PO intake of estimated energy needs for >5 days and 7.4lbs (5.6%) weight loss in <1 week Status Active Problem Recommendation Dietitian Recommendations/Changes Recommend advance diet as tolerated to regular; will continue to offer 120mL Ensure Clear 4x daily for additional calories/protein if consumed. Weight / BMI Weight Weight: 59.4 kg Body Mass Index (BMI) 23.1 ABG / Lab / Microbiology Data Result Diagrams: 10/12/22 05:15 10/12/22 05:15 Laboratory: Laboratory Results - last 24 hr 10/10/22 00:05: Hepatitis A IgM Ab Negative, Hep Bs Antigen Positive H, Hep B Core IgM Ab Positive H, Hepatitis C Ab (EIA) Non Reactive, Hep C Ab Comment Comment 10/10/22 04:40: CMV IgM Ab < 30.0, EBV Capsid Ag IgG Ab 183.0 H, EBV Capsid Ag IgM Ab 106.0 H, EBV Nuclear Ag IgG Ab 442.0 H, EBV Antibody Interp Comment 10/10/22 10:07: BHAVESH-1 Antibody <0.2, SS-A/Ro IgG Antibody < 0.2, SS-B/La IgG Antibody < 0.2, Sm (Phillips) Antibody <0.2, BRILLIANDEER LOOPER Antibody 0.5, Scl-70 Scleroderma Ab <0.2, Double Strand DNA Ab 2, Centromere B Antibody <0.2 10/11/22 14:20: Hep Bs Antibody Non-Reactive 10/12/22 05:15: WBC 8.5, RBC 3.61 L, Hgb 11.1 L, Hct 33.4 L, MCV 92.5, MCH 30.7, MCHC 33.2, RDW Std Deviation 46.7 H, RDW Coeff of Paulo 13.7, Plt Count 154, MPV 10.7, Immature Gran % (Auto) 0.500, Neut % (Auto) 81.6 H, Lymph % (Auto) 13.2 L, [place] % (Auto) 4.3, Eos % (Auto) 0.0, Baso % (Auto) 0.4, Absolute Neuts (auto) 7.0, Absolute Lymphs (auto) 1.13, Nucleated RBC % 0 10/12/22 05:15: Sodium 142, Potassium 4.0, Chloride 114 H, Carbon Dioxide 25.0, Anion Gap 3 L, BUN 6 L, Creatinine 0.44 L, Estim Creat Clear Calc 137.78, Est GFR (MDRD) Af Amer 202, Est GFR (MDRD) Non-Af 167, BUN/Creatinine Ratio 13.6, Glucose 132 H, Calcium 8.1 L, Total Bilirubin 1.00, AST 988 H, ALT 2214 H, Alkaline Phosphatase 108, Total Protein 5.6 L, Albumin 2.4 L, Globulin 3.2, Albumin/Globulin Ratio 0.8 L Microbiology: Microbiology 10/10/22 00:25 Urine, Clean Catch Urine Culture - Final Mixed Gram Positive Organisms 10/09/22 23:05 Blood Culture (Wb) - Right Hand Blood Culture - Preliminary No growth in 48 hours. 10/09/22 22:35 Blood Culture (Wb) - Right Hand Blood Culture - Preliminary No growth in 48 hours. 10/10/22 08:54 Mucosa - Nasopharyngeal Respiratory Panel (PCR) - Final 10/09/22 22:25 Nasal Secretion SARS-CoV-2 & FLU Antigen (Rapid) - Final D/C Instructions Discharge Diet: No restrictions Meaningful Use Info Meaningful Use Diagnoses (Choose all that apply): None applicable Discharge Plan Admission Admit Date/Time: 10/10/22 02:34 Primary Reason for Your Visit: Generalized aches and arm swelling Attending Provider: Naima Brower Primary Care Provider: Care Physician,No Primary Consulting Providers: Miguel Angel Vargas ; Bro Krueger ; Tutu García Instructions Patient Instructions: HBV, ED Hepatitis, Viral (Type B) Additional Instructions / Restrictions: DISCHARGE INSTRUCTIONS PLEASE READ *Please take this with you to your next doctors appointment* -You will be discharged with a prescription for Lovenox that you will use subcutaneous once daily due to your history of blood clots, you indicated you have used this in the past and are aware of how to use this -You will need to follow-up with Dr. Krueger with GI in his office upon discharge. Please call his office to schedule your hospital follow-up appointment (ph. [phone]) -Would recommend lab work (CMP) to check your liver function at your establish care appointment with your new primary care physician 10/19/2022 at 3 PM -Would advise not taking Tylenol or NSAIDs such as ibuprofen and naproxen until cleared to do so by your physician as this can worsen your liver -Strongly advise not drinking alcohol at this time and would avoid any additional substance use -Information on hepatitis B provided in hospital discharge packet -For any concerning signs or symptoms please call 911 or proceed to the nearest emergency department Discharge Orders/Prescriptions Prescriptions: New enoxaparin [Lovenox] 100 mg/mL syringe 90 mg subcut DAILY Qty: 30 2RF Referrals / Follow Up: Colleen Du MD [Med Staff - Active Staff] - 10/19/22 3:00 pm (Please arrive to appt @ 2:30 PM to complete paperwork. ) Bro Krueger DO [Med Staff - Active Staff] - See Referral Note ( -You will need to follow-up with Dr. Krueger with GI in his office upon discharge. Please call his office to schedule your hospital follow-up appointment (ph. [phone])) Disposition Disposition (needs filled in before D/C Order can be placed): Home, Self Care Charges/Coding Visit Charges Inpatient E&M: 82873 Disch Hosp >30min
[2022-10-12 13:51] VITALS: BP 103/65; PULSE 86; RESP 14; TEMP 36.7; O2SAT 99
[2022-10-12 14:09] LABS: Ceruloplasmin 24.3 mg/dL (19.0-39.0); Copper, Serum or Plasma 124 ug/dL (80-158); Deamidated Gliadin IgA 5 units (0-19); Deamidated Gliadin IgG 5 units (0-19); Endomysial Antibody IgA Negative (Negative); Haptoglobin 166 mg/dL (42-296); Immunoglobulin A 172 mg/dL (87-352); Transferrin 174 mg/dL (192-364); t-Transglutaminase IgA <2 U/mL (0-3)
[2022-10-12 15:07] LABS: IgG, Quant 934 mg/dL (586-1602); Immunoglobulin G, Subclass 1 472 mg/dL (248-810); Immunoglobulin G, Subclass 2 243 mg/dL (130-555); Immunoglobulin G, Subclass 3 116 mg/dL (15-102); Immunoglobulin G, Subclass 4 73 mg/dL (2-96); PARVOVIRUS B19 IGG 5.8 index (0.0-0.8); PARVOVIRUS B19 IGM 0.2 index (0.0-0.8)
[2022-10-13 12:08] LABS: Hepatitis Be Ab Negative (Negative); Hepatitis Be Ag Positive (Negative)
[2022-10-13 19:07] LABS: Immunoglobulin E 20 IU/mL (6-495)
[2022-10-15 03:06] LABS: Albumin 2.9 g/dL (2.9-4.4); Aldolase 55.6 U/L (3.3-10.3); Alpha-1-Globulins 0.2 g/dL (0.0-0.4); Alpha-2-Globulins 0.6 g/dL (0.4-1.0); Anti-Smooth Muscle ABS 3 Units (0-19); IMMUNOFIXATION RESULT,S Comment: (.); Immunoglobulin A 168 mg/dL (87-352); Immunoglobulin E 22 IU/mL (6-495); Immunoglobulin G 950 mg/dL (586-1602); Immunoglobulin M 191 mg/dL (26-217); PROEL- TOTAL PROTEIN 5.4 g/dL (6.0-8.5)
== END 2022-10-12 13:51 | disposition home or self-care (01) | DRG 443 ==
LOC: ED 22:36 → ICU 10-10 03:50 → PCU 10-11 15:06
PROVIDERS: Internal Medicine; Internal Medicine Gastroenterology; Admitting Provider Hospitalist; Emergency Provider Emergency Medicine; Visit Provider Internal Medicine
DX: B19.10 Unspecified viral hepatitis B without hepatic coma (principal); G47.419 Narcolepsy without cataplexy; M32.9 Systemic lupus erythematosus, unspecified; K76.0 Fatty (change of) liver, not elsewhere classified; K52.9 Noninfective gastroenteritis and colitis, unspecified; M79.7 Fibromyalgia; R76.8 Other specified abnormal immunological findings in serum; Z68.23 Body mass index [BMI] 23.0-23.9, adult; Z79.01 Long term (current) use of anticoagulants; Z86.718 Personal history of other venous thrombosis and embolism; Z87.891 Personal history of nicotine dependence
CPT/HCPCS: 36569; 71045; 71275; 74177; 76705; 80053; 80074; 80307; 81001; 82085; 82390; 82525; 82550; 82728; 82784; 82785; 82787; 83010; 83516; 83540; 83550; 83605; 83615; 84165; 84443; 84466; 84484; 85025; 85610; 85652; 85730; 86140; 86225; 86235; 86255; 86308; 86334; 86645; 86664; 86665; 86703; 86706; 86707; 86747; 87040; 87086; 87088; 87350; 87428; 87633; 93005; 94762; 97162; 99285; 99406; J7030; Q9967; A4216; J0744; J2405; J3490

== ENCOUNTER 2022-10-19 19:37 | Inpatient (IN) | payer MEDICARE, MEDICAID, SELFPAY ==
[2022-10-19 19:38] VITALS: BP 125/92; PULSE 110; RESP 18; TEMP 36.7; O2SAT 100; BMI 21.6
[2022-10-19 20:37] LABS: Lipase 73 U/L (13-75)
--- NOTE | 2022-10-19 20:37 | EDS_ITS ---
HPI History of Present Illness Chief Complaint: Abn Labs [facility] Medical History (Updated 10/19/22 @ 16:[address] 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 Colitis Depression DVT (deep venous thrombosis) Encephalitis Fibromyalgia Heart disease Hepatitis B Hx of blood clots Lupus Lupus anticoagulant disorder Meningitis Narcolepsy Seizure Sepsis secondary to UTI Home Medications enoxaparin 100 mg/mL subcutaneous syringe (Lovenox) 90 mg (0.9 mL) subcut DAILY #30 mL 10/12/22 [Rx Last Taken Unknown] ondansetron 4 mg disintegrating tablet 4 mg PO Q6H PRN nausea and vomiting #30 tabs 10/19/22 [Rx Last Taken Unknown] pantoprazole 40 mg tablet,delayed release (Protonix) 40 mg PO DAILY #30 tabs 10/19/22 [Rx Last Taken Unknown] Allergy/AdvReac Type Severity Reaction Status Date / Time amoxicillin Allergy Mild Nausea Verified 10/19/22 19:40 aspirin Allergy Mild Nausea Verified 10/19/22 19:40 naproxen [From Aleve] Allergy Mild Rash Verified 10/19/22 19:40 azithromycin Allergy Hives Verified 10/19/22 19:40 erythromycin base Allergy Hives Verified 10/19/22 19:40 [Erythromycin Base] latex Allergy Rash Verified 10/19/22 19:40 Sulfa (Sulfonamide Allergy Hives Verified 10/19/22 19:40 Antibiotics) pregabalin [From Lyrica] AdvReac Mild Other Verified 10/19/22 19:40 divalproex sodium AdvReac Rash Verified 10/19/22 19:40 [From Depakote] nitroglycerin AdvReac Vomiting Verified 10/19/22 19:40 Penicillins AdvReac Rash Verified 10/19/22 19:40 sulfonamides Allergy Mild Rash Uncoded 10/19/22 19:40 Family History (Updated 10/19/22 @ 14:[address] Colleen Du MD) Father Alcoholism Cancer, Onset Age: 59 stomach Heart disease Mother Anemia Depression Pulmonary fibrosis POTS (postural orthostatic tachycardia syndrome) Grandfather Cancer Son Depression Seizures Daughter Depression Brother Heart disease Myocardial infarction, Onset Age: 26 POTS (postural orthostatic tachycardia syndrome) Aunt Seizures Surgical History H/O knee surgery History of Social History (Updated 10/19/22 @ 15:[address] Colleen Du MD) household members: children current occupational status: unemployed Smoking Status: Former smoker quit date: 11/04/21 pack-years: 20 Electronic Cigarette Use: not used alcohol intake: current alcohol intake frequency: holidays/special occasions only substance use type: former substance user Date of last use: cocaine, crack, meth and acid as a teenager and marijuana do you feel safe at home: Yes EXAM Physical Exam Const Vital Signs: 10/19/22 19:38 Temperature 98.1 F Temperature Source Temporal Pulse Rate 110 H Respiratory Rate 18 Blood Pressure 125/92 H Blood Pressure Mean 103 Pulse Ox 100 Oxygen Delivery Method Room Air Discharge Plan Triage Chief Complaint: Abn Labs ED Midlevel Provider: Luciano Torres ED Provider: Dalton Hernandez Dx/Rx/DC Orders Prescriptions: No Action pantoprazole [Protonix] 40 mg tablet,delayed release (DR/EC) 40 mg PO DAILY Qty: 30 1RF ondansetron 4 mg tablet,disintegrating 4 mg PO Q6H PRN (Reason: nausea and vomiting) Qty: 30 0RF enoxaparin [Lovenox] 100 mg/mL syringe 90 mg subcut DAILY Qty: 30 2RF Primary Care Provider: Colleen Du Referrals: Colleen Du MD [Primary Care Provider] -
--- NOTE | 2022-10-19 20:46 | EX.ED.DYSGE1 ---
HPI <KAMARI Silver - Last Filed: 10/19/22 21:10> History of Present Illness Chief Complaint: Abn Labs Narrative Narrative: Patient is a 42-year-old female with history of lupus anticoagulation disease on Lovenox, she also smokes marijuana majority part of the day. She does this for chronic pain syndrome and fibromyalgia. Patient was recently admitted to the hospital and diagnosed with hepatitis B, her AST was 1624 with ALT of 2316. Total bilirubin was 1.0 at that time. Today, her AST still remains elevated at 1072 with an ALT of 1982, alkaline phosphatase is elevated 211. Her total bilirubin is now 7.7. Patient does have scleral icterus, she is continue to have generalized abdominal pain, generalized malaise and is here for reevaluation. [facility] <KAMARI Silver - Last Filed: 10/19/22 21:10> [facility] Medical History (Updated 10/19/22 @ 23:[address] 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 Colitis Depression DVT (deep venous thrombosis) Encephalitis Fibromyalgia Heart disease Hepatitis B Hx of blood clots Lupus Lupus anticoagulant disorder Meningitis Narcolepsy Seizure Sepsis secondary to UTI Home Medications enoxaparin 100 mg/mL subcutaneous syringe (Lovenox) 90 mg (0.9 mL) subcut DAILY #30 mL 10/12/22 [Rx Last Taken Unknown] ondansetron 4 mg disintegrating tablet 4 mg PO Q6H PRN nausea and vomiting #30 tabs 10/19/22 [Rx Last Taken Unknown] pantoprazole 40 mg tablet,delayed release (Protonix) 40 mg PO DAILY #30 tabs 10/19/22 [Rx Last Taken Unknown] Allergy/AdvReac Type Severity Reaction Status Date / Time amoxicillin Allergy Mild Nausea Verified 10/19/22 19:40 aspirin Allergy Mild Nausea Verified 10/19/22 19:40 naproxen [From Aleve] Allergy Mild Rash Verified 10/19/22 19:40 azithromycin Allergy Hives Verified 10/19/22 19:40 erythromycin base Allergy Hives Verified 10/19/22 19:40 [Erythromycin Base] latex Allergy Rash Verified 10/19/22 19:40 Sulfa (Sulfonamide Allergy Hives Verified 10/19/22 19:40 Antibiotics) pregabalin [From Lyrica] AdvReac Mild Other Verified 10/19/22 19:40 divalproex sodium AdvReac Rash Verified 10/19/22 19:40 [From Depakote] nitroglycerin AdvReac Vomiting Verified 10/19/22 19:40 Penicillins AdvReac Rash Verified 10/19/22 19:40 sulfonamides Allergy Mild Rash Uncoded 10/19/22 19:40 Family History (Updated 10/19/22 @ 14:[address] Colleen Du MD) Father Alcoholism Cancer, Onset Age: 59 stomach Heart disease Mother Anemia Depression Pulmonary fibrosis POTS (postural orthostatic tachycardia syndrome) Grandfather Cancer Son Depression Seizures Daughter Depression Brother Heart disease Myocardial infarction, Onset Age: 26 POTS (postural orthostatic tachycardia syndrome) Aunt Seizures Surgical History H/O knee surgery History of Social History (Updated 10/19/22 @ 15:[address] Colleen Du MD) household members: children current occupational status: unemployed Smoking Status: Former smoker quit date: 11/04/21 pack-years: 20 Electronic Cigarette Use: not used alcohol intake: current alcohol intake frequency: holidays/special occasions only substance use type: former substance user Date of last use: cocaine, crack, meth and acid as a teenager and marijuana do you feel safe at home: Yes ROS <Luciano Torres NP-C - Last Filed: 10/19/22 21:10> ROS ED ROS Narrative Constitutional: Negative for fever, chills, weight loss. Positive for weakness Eyes: Negative for vision loss, vision change, double vision ENT: Negative for any sore throat, ear pain, congestion Cardiovascular: Negative for any chest pain, tightness, palpitations Respiratory: Negative for any cough, sputum production, hemoptysis, dyspnea, dyspnea on exertion, orthopnea Gastrointestinal: Negative for any vomiting, diarrhea, constipation, blood in stool, blood in vomit. Positive for abdominal pain, nausea : Negative for any urinary frequency, dysuria, retention, blood in urine Muscle skeletal: Negative for any muscle joint pain, stiffness, arthralgias, neck pain, back pain. Positive for myalgias Neurological: Negative for any headache, syncope, numbness or tingling, dizziness Skin: Negative for any rashes, lumps, itching, abrasions, lacerations Psychiatric: Negative for any depression, anxiety, stress, suicidal ideation, homicidal ideation Hematologic: Negative for any easy bruising, excessive bruising, easy bleeding Allergies: Negative for any eczema, hives, rash EXAM <KAMARI Silver - Last Filed: 10/19/22 21:10> Physical Exam Narrative Exam Narrative: Vital signs reviewed. HEET: Head normocephalic atraumatic, TMs clear bilaterally. Posterior pharynx is clear, dry mucous membranes. Nares clear bilaterally. Pupils are equal round reactive light, they do have a jaundiced. Consistent with scleral icterus. Neck: Supple with no lymphadenopathy or tenderness. No signs of meningismus, negative jolt sign. Cardiac: Regular rate and rhythm no murmurs gallops or rubs, equal peripheral pulses bilaterally. Respiratory: Lungs clear to auscultation bilaterally. No chest tenderness. Abdomen: Soft, nontender, nondistended. No abdominal bruit or pulsatile masses. No hepatosplenomegaly Extremities: No peripheral edema, no signs of gross trauma or deformity. Active full range of motion of all extremities. Neuro: Cranial nerves II through XII intact, no focal neurological deficits. Skin: Clean dry and intact with no rash, purpura, petechiae, vesicles or pustules. Backs/flank: No CVA tenderness, no midline spinal tenderness, no deformity. Psych: Normal mood and affect. No SI, HI or acute psychosis. Const Vital Signs: 10/19/22 19:38 10/19/22 20:37 10/19/22 21:37 Temperature 98.1 F Temperature Source Temporal Pulse Rate 110 H 112 H Respiratory Rate 18 Respiratory Effort Normal Non-Labored Respiratory Pattern Normal Blood Pressure 125/92 H Blood Pressure Mean 103 Pulse Ox 100 Oxygen Delivery Method Room Air <Dr. Dalton Hernandez MD - Last Filed: 10/19/22 23:27> Physical Exam Const Vital Signs: 10/19/22 19:38 10/19/22 20:37 10/19/22 21:37 Temperature 98.1 F Temperature Source Temporal Pulse Rate 110 H 112 H Respiratory Rate 18 Respiratory Effort Normal Non-Labored Respiratory Pattern Normal Blood Pressure 125/92 H Blood Pressure Mean 103 Pulse Ox 100 Oxygen Delivery Method Room Air MDM <KAMARI Silver - Last Filed: 10/19/22 21:10> [facility] Lab Data Labs: Laboratory Results - last 24 hr 10/19/22 10/19/22 15:40 20:50 PT 15.6 H INR 1.2 Lipase 73 Radiography Diagnostic Testing: Clinical Impression(s) from Imaging Studies Abdomen Ultrasound 10/19/22 21:36 IMPRESSION: Partially contracted gallbladder. No gallstones. Pericholecystic fluid shows near complete interval resolution. Common bile duct remains slightly dilated, measuring 7 mm in diameter as compared with 6 mm on the prior study. Hepatic steatosis. Electronically Signed: Karthik Quinteros MD at 22:53 EDT , Treatment and Re-Evaluation :: Patient does appear to be in mild distress secondary to abdominal pain. Patient is concerned because she is having worsening abdominal pain, body aches, and no appetite. Patient did receive repeat laboratory values. Patient's total bilirubin did get elevated to 7.7 today, patient's AST is 1072 with an ALT of 1982 and elevated alkaline phosphatase at 211. Patient was given IV fluids, IV Zofran. Patient's lipase was negative. I did speak with Dr. Krueger's nurse practitioner Kiana, to make her aware that if the patient does get admitted Dr. Krueger can see her on the floor. She occurred me that will be okay. I spoke with hospitalist, the hospitalist was unsure if the patient really needs admitted secondary to the patient not having nausea or vomiting. The hospitalist will come down to evaluate the patient for status of admission for discharge <Dr. Dalton Hernandez MD - Last Filed: 10/19/22 23:27> [facility] Narrative Medical decision making narrative: I have personally performed a face to face assessment of the patient and have reviewed the YOANA Note. I performed a substantive portion of the visit including all aspects of the following. My cortez findings include: History: Patient states that she was told to come in by her primary physician due to rising blood tests as an outpatient. I did review her outpatient blood test from earlier today that show significant elevation of her total bilirubin 2/7 now. She is also developed jaundice. She states she is not sleeping. She is aching all over. Her abdomen hurts everywhere but she is eating and drinking and moving her bowels well. She has all the same symptoms she had when she was recently admitted and diagnosed with hepatitis B but they are just worsening. Exam: Patient is awake alert appropriate. She is not confused or lethargic. She does have jaundice and icterus. Lungs are clear. Abdomen is actually benign on exam. Medical Decision Making: I reviewed outpatient labs. We added INR which was normal as well as lipase which was normal. We discussed case with hospitalist and the patient will be admitted. Lab Data Labs: Laboratory Results - last 24 hr 10/19/22 10/19/22 15:40 20:50 PT 15.6 H INR 1.2 Lipase 73 Radiography Diagnostic Testing: Clinical Impression(s) from Imaging Studies Abdomen Ultrasound 10/19/22 21:36 IMPRESSION: Partially contracted gallbladder. No gallstones. Pericholecystic fluid shows near complete interval resolution. Common bile duct remains slightly dilated, measuring 7 mm in diameter as compared with 6 mm on the prior study. Hepatic steatosis. Electronically Signed: Karthik Quinteros MD at 22:53 EDT , Discharge Plan Dx/Rx/DC Orders Clinical Impression: Hepatitis B, Jaundice, Myalgia, Abdominal pain Disposition Disposition: Acute Care Hospital [facility] Discharge Date/Time: 10/19/22 22:39
[2022-10-19 21:09] LABS: International Normalized Ratio 1.2; Prothrombin Time (Protime)PT. 15.6 SECONDS (11.7-14.9)
--- NOTE | 2022-10-19 21:36 | US_ITS ---
EXAM: US abdomen, limited, right upper quadrant. HISTORY: evaluate liver and duct. TECHNIQUE: US Abdomen RUQ (limited) COMPARISON: CT and ultrasound of 10/10/2022. LIMITATIONS: None. LIVER Size: Normal. Right hepatic lobe measures 16.9 cm in length. Masses: None. Contour: Normal. Echotexture: Diffusely increased echogenicity consistent with hepatic steatosis. Bile ducts: Normal. Portal veins: Normal. Normal hepatopedal flow. Hepatic veins are also patent. GALLBLADDER Size: Slightly contracted. Stones/sludge: None. Wall thickness: Normal. Gallbladder wall measures 2 mm in thickness. Pericholecystic fluid: Trace. Sonographic Kramer sign: Negative. EXTRAHEPATIC BILE DUCTS: Common bile duct remains slightly dilated, now measuring up to 7 mm in diameter as compared with 6 mm on the prior study. No stones are seen within the visualized portions of the CBD. RIGHT KIDNEY: Normal. Right kidney measures 10.9 cm in length. No hydronephrosis. ASCITES: None. PLEURAL EFFUSIONS: None. OTHER: Pancreas remains normal in size. Pancreatic parenchyma is isoechoic with the liver, most likely due to the increased hepatic echogenicity of hepatic steatosis rather than edema of pancreatitis; this finding is unchanged. US/Abdomen Limited IMPRESSION: Partially contracted gallbladder. No gallstones. Pericholecystic fluid shows near complete interval resolution. Common bile duct remains slightly dilated, measuring 7 mm in diameter as compared with 6 mm on the prior study. Hepatic steatosis. Electronically Signed: Karthik Quinteros MD at 22:53 EDT ,
[2022-10-19 21:37] VITALS: PULSE 112
--- NOTE | 2022-10-19 21:42 | PCM.HP.STD ---
HPI - General General Date of Admission: 10/20/22 Date of Service: 10/19/22 Chief Complaint: weakness, anorexia HPI Narrative GABRIELA DUARTE, is a 42 F who presents with abdominal pain, worsening acid reflux, new jaundice and joint pain. She is not eating much and has about 8 episodes of vomiting bilious type emesis. She feels like knives are stabbing her abdomen. She is having bowel movements and urinating ok She was seeing her internal medicine doctor (Valeriano) who repeated labs, and they noted rising bili from 1 to 7.7 therefore they advised her to be evaluated in ED. Recently was in hospital for hepatitis, likely of Hep B origin. She was discharged and had f/u in Dec with Dr Krueger, however patient isn't sure she can wait that long. 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 Colitis Depression DVT (deep venous thrombosis) Encephalitis Fibromyalgia Heart disease Hepatitis B Hx of blood clots Lupus Lupus anticoagulant disorder Meningitis Narcolepsy Narcolepsy without cataplexy Seizure Sepsis secondary to UTI Home Medications enoxaparin 100 mg/mL subcutaneous syringe (Lovenox) 90 mg (0.9 mL) subcut DAILY #30 mL 10/12/22 [Rx Last Taken Unknown] ondansetron 4 mg disintegrating tablet 4 mg PO Q6H PRN nausea and vomiting #30 tabs 10/19/22 [Rx Last Taken Unknown] pantoprazole 40 mg tablet,delayed release (Protonix) 40 mg PO DAILY #30 tabs 10/19/22 [Rx Last Taken Unknown] Allergy/AdvReac Type Severity Reaction Status Date / Time amoxicillin Allergy Mild Nausea Verified 10/19/22 19:40 aspirin Allergy Mild Nausea Verified 10/19/22 19:40 naproxen [From Aleve] Allergy Mild Rash Verified 10/19/22 19:40 azithromycin Allergy Hives Verified 10/19/22 19:40 erythromycin base Allergy Hives Verified 10/19/22 19:40 [Erythromycin Base] latex Allergy Rash Verified 10/19/22 19:40 Sulfa (Sulfonamide Allergy Hives Verified 10/19/22 19:40 Antibiotics) pregabalin [From Lyrica] AdvReac Mild Other Verified 10/19/22 19:40 divalproex sodium AdvReac Rash Verified 10/19/22 19:40 [From Depakote] nitroglycerin AdvReac Vomiting Verified 10/19/22 19:40 Penicillins AdvReac Rash Verified 10/19/22 19:40 sulfonamides Allergy Mild Rash Uncoded 10/19/22 19:40 Family History (Updated 10/19/22 @ 14:[address] Colleen Du MD) Father Alcoholism Cancer, Onset Age: 59 stomach Heart disease Mother Anemia Depression Pulmonary fibrosis POTS (postural orthostatic tachycardia syndrome) Grandfather Cancer Son Depression Seizures Daughter Depression Brother Heart disease Myocardial infarction, Onset Age: 26 POTS (postural orthostatic tachycardia syndrome) Aunt Seizures Surgical History H/O knee surgery History of Social History (Updated 10/19/22 @ 15:[address] Colleen Du MD) household members: children current occupational status: unemployed Smoking Status: Former smoker quit date: 11/04/21 pack-years: 20 Electronic Cigarette Use: not used alcohol intake: current alcohol intake frequency: holidays/special occasions only substance use type: former substance user Date of last use: cocaine, crack, meth and acid as a teenager and marijuana do you feel safe at home: Yes Vital Signs Vital Signs Vital Signs: 10/19/22 19:38 10/19/22 20:37 Temperature 98.1 F Temperature Source Temporal Pulse Rate 110 H Respiratory Rate 18 Respiratory Effort Normal Non-Labored Respiratory Pattern Normal Blood Pressure 125/92 H Blood Pressure Mean 103 Pulse Ox 100 Oxygen Delivery Method Room Air Weight Weight: 122 lb 2.177 oz Body Mass Index (BMI) 21.6 Results Medical Records Data Attestation: I reviewed the patient's medical records Lab / Micro Data Attestation: I reviewed the patient's lab results. Result Diagrams: 10/21/22 07:00 10/20/22 06:22 Labs: Laboratory Results - last 24 hr 10/19/22 15:40: Lipase 73 10/19/22 20:50: PT 15.6 H, INR 1.2 Assessment & Plan Assessment/Plan (1) Hepatitis B: QUALIFIERS: Hepatic coma status: without hepatic coma Hepatitis delta agent presence: without delta-agent Viral hepatitis chronicity: acute Qualified Code(s): B16.9 - Acute hepatitis B without delta-agent and without hepatic coma (2) Lupus anticoagulant disorder: (3) Hx of blood clots: (4) Cannabis abuse with cannabis-induced disorder: PLAN: Plan #Transaminitis on top of hepatitis B, acute versus chronic ( most likely acute) -With rising Bili, will fractionate bili. -Continue to trend CMP daily. - INR is 1.2 -Right upper quadrant ultrasound done overnight. -large hepatitis assessment with serologies was recently done on previous admission. -GI consult -no liver failure or encephalopathy at this time. -10/12: Hep B surface antigen and core IgM antibodies both positive with a negative hep B surface antibody and hepatitis B eAg positive and eAb negative. - She needs hep B viral DNA quantification (may be send out test?) Weakness, Joint Aches, nausea vomiting - This is likely due to above hepatitis. - Encourage diet - Order milkshakes for nutrition - Not using ETOH - WIll consult nutrition - IV fluids overnight - PO and IV zofran PRN - Avoid Tylenol. Will give Ibuprofen for pain BID PRN History of clot - Resume Lovenox 90 mg. Full code. Charges/Coding Visit Charges Inpatient E&M: 93239 Init Hosp L2
[2022-10-19 22:09] VITALS: BP 119/71; PULSE 100; RESP 17; TEMP 36.6; O2SAT 98
[2022-10-19 22:53] VITALS: BMI 21.7
[2022-10-19 22:59] VITALS: BP 106/71; PULSE 88; RESP 18; TEMP 36.9; O2SAT 97
[2022-10-19] MEDS: 0.9% Normal Saline 1,000 ML 100 ML IV (23:02)
[2022-10-19] MEDS: Pantoprazole Sodium 40 MG Tablet PO (23:06)
[2022-10-19] MEDS: Ondansetron ODT 4 MG Tablet PO (23:31)
[2022-10-19] MEDS: 0.9% Saline Lock 10 ML Syringe IV (23:37)
[2022-10-19] MEDS: Ketorolac 15 MG/ML Vial IV (23:37)
[2022-10-20] VITALS (14 sets, daily range): BP systolic 84–118; BP diastolic 49–77; PULSE 62–80; RESP 12–21; TEMP 36.8–36.9; O2SAT 97–100
--- NOTE | 2022-10-20 | LIVB_PTH ---
PATHOLOGY RESULTS PATIENT: GABRIELA DUARTE LOC: MS3 U#:[id number] AGE/SX: 42/F ROOM: SC316 RE10/20/[address]: Dr. Avinash Xavier MD : 1980 BED: 1 DIS: 10/23/2022 SPEC #: [id number] RECD: 10/20/22 10:52 STATUS: ASIYA MORA #: [id number] CARLITO: 10/20/22 00:[address]: Salavdor Quinonez DEPT: SURGICAL PATHOLOGY RECD BY: Maciel Weeks ENTERED: 10/20/22 11:20 SP TYPE: LIVER BX OTHR DR: MD Dr. Aaron Hart MD Dr. Ryan Burkholder, MD Tissues: Liver, NOS Procedures: PAS with Diastase (control) Trichrome (control) Special Stain Group II PAS Stain (control) Surgery Specimen Level V Retic (control) Iron Stain (control) HEADER OPERATION: Liver biopsy PRE-OP DIAGNOSIS: Hepatitis TISSUE SUBMITTED: Liver 18-gauge x3 MICROSCOPIC DIAGNOSIS Liver, core biopsy: Chronic hepatitis, grade 3, stage 2. See comment. AM:yuli 10/23/2022 COMMENT Sections show moderate limiting plate necrosis with focal severe cell necrosis. The inflammation consists primarily of lymphocytes with rare plasma cells, occasional eosinophils and neutrophils. Trichrome stain with matched control reveals expanded portal fibrosis and chicken wire fibrosis that extends into the lobules; however, cirrhosis and/or severe architectural distortion is not identified. Iron stain does not reveal intraparenchymal deposition of iron. Reticulin stain reveals a normal hepatic architecture. PAS with and without diastase does not reveal accumulation of abnormal proteins. All matched controls are appropriate. MICROSCOPIC DESCRIPTION Slides are reviewed. GROSS DESCRIPTION Received is one container labeled with the patient's name and not further designated. The specimen consists of three elongated fragments of jimenez soft tissue measuring in aggregate 1.5 x 0.3 x 0.1 cm. The entire specimen is submitted in one cassette. / SJ:yuli 10/20/2022 TC:3 CPT: 75347, 91345 x5
[2022-10-20] MEDS: Mag Hydrox/Al Hydrox/Simeth 30 ML UDC PO (01:22)
[2022-10-20] MEDS: Ibuprofen 200 MG Tablet 400 MG PO ×2 (06:06→20:10)
[2022-10-20] MEDS: Calcium Carbonate 500 MG Tablet PO (06:30)
[2022-10-20 06:33] LABS: Absolute Lymphocyte Count 1.36 X10^3/uL (0.83-4.51); Absolute Neutrophil Count 3.9 X10^3/uL (2.0-7.7); Basophil# 0.05 X10^3/uL; Basophil% 0.8 % (0-1); Eosinophils% 1.6 % (0-5); Hematocrit 31.2 % (37-47); Hemoglobin 10.8 g/dL (12.0-15.0); Lymphocyte # 1.36 X10^3/ul (0.83-4.51); Lymphocyte % 22.1 % (19-41); Mean Corp Hgb Conc 34.6 g/dL (32-36); Mean Corpuscular Hgb 30.3 pg (27.0-32.0); Mean Corpuscular Volume 87.6 fL (81-99); Mean Platelet Vol. 10.6 fl (6.2-12.0); Monocyte# 0.74 X10^3/uL; NRBC Flagged by Analyzer 0 % (0-5); Neutrophil # 3.85 X10^3/uL (2.7-7.7); Neutrophil % 62.7 % (47-70); Platelet Count 206 K/mm3 (150-450); RBC Distribution Width CV 16.3 % (11.6-14.6); RBC Distribution Width SD 50.8 fl (35.1-43.9); Red Blood Count 3.56 M/mm3 (4.2-5.4); White Blood Count 6.2 K/mm3 (4.4-11.0)
[2022-10-20 06:58] LABS: Bilirubin, Direct 5.73 mg/dL (0.00-0.30)
[2022-10-20 07:14] LABS: International Normalized Ratio 1.2; Prothrombin Time (Protime)PT. 15.6 SECONDS (11.7-14.9)
[2022-10-20 07:15] LABS: ALB/GLOB Ratio 0.6 RATIO (0.9-2.4); AST(SGOT) 915 U/L (15-37); Alanine Aminotransfer ALT/SGPT 1483 U/L (13-56); Albumin, Serum 2.4 g/dL (3.2-5.0); Alkaline Phosphatase 175 U/L (45-117); Anion Gap 8 (5-15); BUN 8 mg/dL (7-18); BUN/Creat Ratio 13.9 RATIO (10-20); Calcium,Total 7.6 mg/dL (8.5-10.1); Chloride 106 mmol/L (98-107); Creatinine, Serum 0.58 mg/dL (0.55-1.02); EST Glomerular Filtration Rate 122 mL/min (>60); Est Glom Filt Rate - Afr Amer 147 mL/min (>60); Estimated Creatinine Clearance 104.52 ml/min; Globulin 3.7 g/dL (2.2-4.2); Glucose 94 mg/dL (74-106); Potassium 3.7 mmol/L (3.5-5.1); Protein, Total 6.1 g/dL (6.4-8.2); Sodium Level 139 mmol/L (136-145)
--- NOTE | 2022-10-20 07:25 | MRI_ITS ---
EXAM: MR ABDOMEN WITHOUT INTRAVENOUS CONTRAST, MRCP PROTOCOL CLINICAL INDICATION: hepatitis and jaundice TECHNIQUE: Multiplanar and multisequence MR images of the abdomen without intravenous contrast obtained with MRCP sequence. Three-dimensional post-processing reconstructions were performed. This report was created using [employer] report generation technology. COMPARISON: 10/10/2022, 10/19/2022 FINDINGS: LOWER THORAX: Unremarkable. No pleural effusion. LIVER: No hepatic masses. GALLBLADDER AND BILE DUCTS: Gallbladder is contracted with fluid adjacent to the gallbladder. No gallstones. No gallbladder distention or wall edema. No intra- or extrahepatic biliary ductal dilation. No choledochal filling defect. The common duct measures 4.8 mm. PANCREAS: Unremarkable. No focal cystic mass. No pancreatic duct dilation. SPLEEN: Unremarkable. Non-enlarged. ADRENALS: Unremarkable. No nodules. KIDNEYS AND URETERS: Unremarkable. Normal renal size and position. No hydronephrosis. INTRAPERITONEAL SPACE: Unremarkable. No ascites or other fluid collection. VASCULATURE: Unremarkable. Abdominal aorta is non-dilated. LYMPH NODES: No enlarged lymph nodes. MRI/MRCP Abdomen without Contrast IMPRESSION: 1. No biliary obstruction, choledocholithiasis or biliary dilation. 2. Contracted gallbladder with pericholecystic fluid, unchanged since ultrasound on the previous day. Electronically Signed: Lalito Carrington (Brooks), at 11:32 EDT Reading Location ID and State: / [place] , Service support ,
--- NOTE | 2022-10-20 07:39 | PCM.PN.HOSP ---
Reason for Visit Reason for Visit: Patient is a 42-year-old lady with history of hepatitis B admitted with nausea and vomiting. Patient was found to have acute transaminitis admitted to regular nursing floor for further management Objective Data Objective Data Vital Signs: Vital Signs Temp Pulse Resp BP Pulse Ox O2 Del Method 98.5 F 69 18 105/72 98 Room Air 10/20/22 05:30 10/20/22 05:30 10/20/22 05:30 10/20/22 05:30 10/20/22 05:30 10/20/22 05:30 Oxygen Delivery Method Room Air Weight: 55.6 kg Body Mass Index (BMI) 21.7 Intake & Output: Intake and Output for Last 24 Hours 10/18/22 10/19/22 10/20/22 23:59 23:59 23:59 Output Total 600 / 600 Balance -600 / -600 Lab / Micro Data Result Diagrams: 10/20/22 06:22 10/20/22 06:22 Labs: Laboratory Results - last 24 hr 10/19/22 15:40: Lipase 73 10/19/22 20:50: PT 15.6 H, INR 1.2 10/20/22 06:22: WBC 6.2, RBC 3.56 L, Hgb 10.8 L, Hct 31.2 L, MCV 87.6, MCH 30.3, MCHC 34.6, RDW Std Deviation 50.8 H, RDW Coeff of Paulo 16.3 H, Plt Count 206, MPV 10.6, Immature Gran % (Auto) 0.800, Neut % (Auto) 62.7, Lymph % (Auto) 22.1, [place] % (Auto) 12.0 H, Eos % (Auto) 1.6, Baso % (Auto) 0.8, Absolute Neuts (auto) 3.9, Absolute Lymphs (auto) 1.36, Nucleated RBC % 0 10/20/22 06:22: Sodium 139, Potassium 3.7, Chloride 106, Carbon Dioxide 25.0, Anion Gap 8, BUN 8, Creatinine 0.58, Estim Creat Clear Calc 104.52, Est GFR (MDRD) Af Amer 147, Est GFR (MDRD) Non-Af 122, BUN/Creatinine Ratio 13.9, Glucose 94, Calcium 7.6 L, Total Bilirubin 6.70 H, AST 915 H, ALT 1483 H, Alkaline Phosphatase 175 H, Total Protein 6.1 L, Albumin 2.4 L, Globulin 3.7, Albumin/Globulin Ratio 0.6 L 10/20/22 06:22: Direct Bilirubin 5.73 H 10/20/22 06:22: PT 15.6 H, INR 1.2 Radiography Diagnostic Testing: Radiology Impression Abdomen Ultrasound 10/19/22 21:36 IMPRESSION: Partially contracted gallbladder. No gallstones. Pericholecystic fluid shows near complete interval resolution. Common bile duct remains slightly dilated, measuring 7 mm in diameter as compared with 6 mm on the prior study. Hepatic steatosis. Electronically Signed: Katrhik Quinteros MD at 22:53 EDT , Physical Exam Narrative GENERAL: cooperative HEENT: Atraumatic; normocephalic EYES;icteric, Normal Conjunctiva NECK; supple, normal thyroid, RESPIRATORY: Diminished to auscultation CARDIOVASCULAR: Regular S1 S2, GI: soft, normoactive bowel sounds, : No Renal angle tenderness; EXTREMITIES: No edema, no clubbing, MUSCULOSKELETAL: no muscle wasting NEURO: Awake; no lateralizing signs. SKIN: No Rash PSYCH; Flat affect Assessment & Plan Assessment/Plan (1) Hepatitis B: QUALIFIERS: Hepatic coma status: without hepatic coma Hepatitis delta agent presence: without delta-agent Viral hepatitis chronicity: acute Qualified Code(s): B16.9 - Acute hepatitis B without delta-agent and without hepatic coma (2) Lupus anticoagulant disorder: (3) Hx of blood clots: (4) Cannabis abuse with cannabis-induced disorder: PLAN: Plan Patient is a 42-year-old lady with history of hepatitis B admitted with nausea and vomiting. Patient was found to have acute transaminitis admitted to regular nursing floor for further management 1. Nausea and vomiting ? Do suspect cannabis use with cannabinoid induced hyperemesis counseled on cessation 2. Acute transaminitis ? In the setting of hepatitis B. Patient has been admitted to monitored bed with consultation placed to GI plan is for patient to undergo further evaluation with a liver biopsy. Consult was placed to Dr. Krueger with GI case discussed with him. Repeat labs ordered for a.m. 3. 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 Patient is on Lovenox continue 4. GERD ? On PPI 5. History of epilepsy ? Currently not on any antiepileptic medication patient to follow-up with primary neurologist for resumption of treatment if indicated 6. DVT prophylaxis Patient on Lovenox Time spent in the patient's overall evaluation,decision-making process, review of diagnostic data, adjustment of management, discussion with other providers, nursing nursing and ancillary staff involved in patient's care documentation,50 Minutes Charges/Coding Visit Charges Inpatient E&M: 99872 Subs Hosp L3
[2022-10-20] MEDS: 0.9% Normal Saline 1,000 ML 100 ML IV ×2 (08:16→08:20)
--- NOTE | 2022-10-20 08:21 | CT_ITS ---
PROCEDURE: CT DIRECTED CORE LIVER BIOPSY INDICATION: Female, 42 years old. Severe hepatitis PHYSICIAN: Dr. Yayo Marquez CONSENT: Written informed consent was obtained having explained the risks, benefits and alternatives in detail with the patient who accepted the risks and agreed to proceed. Laboratory review and clinical assessment was performed. CONSCIOUS SEDATION PROTOCOL: The Drugs used were: 2 mg Versed, IV., and 50 mcg Fentanyl, IV. The sedation time was: 20 minutes. Conscious sedation was started at 10:25 AM and terminated at 10:45 AM. The conscious sedation protocol was independently monitored. RADIATION DOSAGE (If Supplied By Facility): CTDIvol = ( 14.5 ) mGy, DLP = ( 203.6 ) mGycm Individualized dose optimization techniques were used for this CT. TECHNIQUE: Using CT image guidance with image documentation, a suitable location in the left lobe of the liver was identified. Using an anterior approach, puncture of the liver was uneventful with an 18-gauge core needle system. 3, 18-gauge core samples were obtained, and submitted in formalin to the pathologist for further assessment. Followup CT scan revealed no distinct sequelae. CT/Biopsy/Inj or Needle Placement IMPRESSION: 1. CT directed core needle biopsy of the liver, using CT image guidance with image documentation as described. 2. Conscious Sedation protocol utilized with independent monitoring. Electronically Signed: Aaron Rosenthal MD at 11:14 EDT ,
[2022-10-20] MEDS: Midazolam 2 MG/2 ML Syringe IV (10:25)
[2022-10-20] MEDS: fentaNYL 100 MCG/2 ML Ampul IV (10:27)
[2022-10-20] MEDS: 0.9% Saline Lock 10 ML Syringe IV (10:31)
[2022-10-20] MEDS: Lidocaine 2% (20 ml mdv) 20 ML Vial INFILT (10:40)
--- NOTE | 2022-10-20 12:52 | CON.PCM.GI_ITS ---
HPI Consult Data Date of Consult: 10/20/22 HPI Narrative Reason for Consultation: Jaundice HPI Narrative: GABRIELA DUARTE, is a 42 F who presents to the ED after being discharge approximately 10 days ago with acute hepatitis. She was feeling well up until 2 days ago when she started developing worsening abdominal pain. 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 ? She had an elevated lactate and was tachycardic and had a white blood cell count of 3.8 and she initially had bronc cultures and was started on broad- spectrum antibiotics due to concerns for sepsis likely secondary to UTI given UA findings.? She was found however to have AST/ALT of 1900 and 2200 respectively.? Given her reported history of lupus and her seeming systemic inflammation she is continued on broad-spectrum antibiotics but broad work-up obtained.? She is given N-acetylcysteine.? Initial uptrend in AST and ALT which then began to improve, UDS positive for marijuana amphetamines.? Patient denies amphetamine use but said somebody may have laced her marijuana with it.? She ultimately was found to have have Hep B surface antigen and core IgM antibodies both positive with a negative hep B surface antibody but need hepatitis B eAg and eAb as well as PCR DNA quant for further determination if acute or chronic hep B.? Suspicion is patient may have acute hep B.? Discussed with GI and no acute treatment is indicated at this time.? Patient symptomatically improving and okay for discharge.? Antibiotics stopped, cultures negative and sepsis ruled out.? Additionally on labs patient was EBV antibody positive. Patient not only has capsid IgG and IgM antibody positive which would typically indicate acute infection but also has nuclear IgG antibody which is not seen in the acute phase of EBV typically indicating past infection.? Based on pattern suspect past EBV infection in the capsid IgG and IgM will continue to downtrend with nuclear IgG continuing to uptrend.? Her bilirubin had gone all way down to 0.8 and on admission it increased back up to 8.2. Also her AST and ALT had increased back up to her previous levels of 1900 and 1600. I ordered an MRCP : Gallbladder is contracted with fluid ad jacent to the gallbladder.? No gallstones.? No gallbladder distention or wall edema.? No intra- or extrahepatic biliary ductal dilation.? No choledochal filling defect. The common duct measures 4.8 mm. I also ordered serologies for hepatitis D but they are pending. Her anti-smooth muscle antibody, IgG 4, JENNIFER, ANCA were all negative. I also ordered a liver biopsy but that is pending. [facility] Medical History (Updated 10/20/22 @ 00:03 by Background Franca) Amphetamine abuse Cannabis abuse with cannabis-induced disorder Colitis Depression DVT (deep venous thrombosis) Encephalitis Fibromyalgia Heart disease Hepatitis B Hx of blood clots Lupus Lupus anticoagulant disorder Meningitis Narcolepsy Narcolepsy without cataplexy Seizure Sepsis secondary to UTI Home Medications enoxaparin 100 mg/mL subcutaneous syringe (Lovenox) 90 mg (0.9 mL) subcut DAILY #30 mL 10/12/22 [Rx Last Taken Unknown] ondansetron 4 mg disintegrating tablet 4 mg PO Q6H PRN nausea and vomiting #30 tabs 10/19/22 [Rx Last Taken Unknown] pantoprazole 40 mg tablet,delayed release (Protonix) 40 mg PO DAILY #30 tabs 10/19/22 [Rx Last Taken Unknown] Allergy/AdvReac Type Severity Reaction Status Date / Time amoxicillin Allergy Mild Nausea Verified 10/19/22 19:40 aspirin Allergy Mild Nausea Verified 10/19/22 19:40 naproxen [From Aleve] Allergy Mild Rash Verified 10/19/22 19:40 azithromycin Allergy Hives Verified 10/19/22 19:40 erythromycin base Allergy Hives Verified 10/19/22 19:40 [Erythromycin Base] latex Allergy Rash Verified 10/19/22 19:40 Sulfa (Sulfonamide Allergy Hives Verified 10/19/22 19:40 Antibiotics) pregabalin [From Lyrica] AdvReac Mild Other Verified 10/19/22 19:40 divalproex sodium AdvReac Rash Verified 10/19/22 19:40 [From Depakote] nitroglycerin AdvReac Vomiting Verified 10/19/22 19:40 Penicillins AdvReac Rash Verified 10/19/22 19:40 sulfonamides Allergy Mild Rash Uncoded 10/19/22 19:40 Family History (Updated 10/19/22 @ 14:[address] Colleen Du MD) Father Alcoholism Cancer, Onset Age: 59 stomach Heart disease Mother Anemia Depression Pulmonary fibrosis POTS (postural orthostatic tachycardia syndrome) Grandfather Cancer Son Depression Seizures Daughter Depression Brother Heart disease Myocardial infarction, Onset Age: 26 POTS (postural orthostatic tachycardia syndrome) Aunt Seizures Surgical History H/O knee surgery History of Social History (Updated 10/19/22 @ 15:[address] Colleen Du MD) household members: children current occupational status: unemployed Smoking Status: Former smoker quit date: 11/04/21 pack-years: 20 Electronic Cigarette Use: not used alcohol intake: current alcohol intake frequency: holidays/special occasions only substance use type: former substance user Date of last use: cocaine, crack, me th and acid as a teenager and marijuana do you feel safe at home: Yes ROS ROS Narrative Pertinent positives and pertinent negatives as noted in HPI. All other systems were reviewed and are negative Physical Exam Narrative GENERAL: cooperative HEENT: Atraumatic; normocephalic EYES;icteric, Normal Conjunctiva NECK; supple, normal thyroid, RESPIRATORY: Diminished to auscultation CARDIOVASCULAR: Regular S1 S2, GI: soft, normoactive bowel sounds, : No Renal angle tenderness; EXTREMITIES: No edema, no clubbing, MUSCULOSKELETAL: no muscle wasting NEURO: Awake; no lateralizing signs. SKIN: No Rash PSYCH; Flat affect Medical Records Data Medical Nutrition Assessment Dietitian: Malnutrition Criteria Met Start: 10/20/22 15:48 Freq: Status: Active Protocol: Document 10/20/22 15:49 JOSE MANUEL (Rec: 10/20/22 15:49 JOSE MANUEL [id number]) Nutrition Malnutrition Evidence of Malnutrition Exists Yes Malnutrition (severe): Acute Illness/Injury Evidenced By Suboptimal Energy Intake ( Severe),Weight Loss (Severe) Clinical Problem Acute Disease or Injury Related Malnutrition Etiology related to issues w/ nausea and vomiting and having inadequate energy intake Signs/Symptoms as evidenced by ~9% wt loss and <50% of est nutritional needs x 2 mo Status Active Problem Recommendation Dietitian Recommendations/Changes Continue liberal regular diet Will order Ensure Clear 240 ml w/ meals for increased nutrition if consumed. Lab / Micro Data Result Diagrams: 10/21/22 07:00 10/21/22 07:00 Labs: Laboratory Results - last 24 hr 10/21/22 07:00: WBC 5.0, RBC 3.59 L, Hgb 11.3 L, Hct 31.9 L, MCV 88.9, MCH 31.5, MCHC 35.4, RDW Std Deviation 53.7 H, RDW Coeff of Paulo 17.2 H, Plt Count 180, MPV 10.6, Immature Gran % (Auto) 0.800, Neut % (Auto) 66.9, Lymph % (Auto) 20.9, [place] % (Auto) 9.6, Eos % (Auto) 1.2, Baso % (Auto) 0.6, Absolute Neuts (auto) 3.3, Absolute Lymphs (auto) 1.04, Nucleated RBC % 0 10/21/22 07:00: Sodium 138, Potassium 4.1, Chloride 110 H, Carbon Dioxide 24.0, Anion Gap 4 L, BUN 7, Creatinine 0.60, Estim Creat Clear Calc 101.04, Est GFR (MDRD) Af Amer 141, Est GFR (MDRD) Non-Af 116, BUN/Creatinine Ratio 11.6, Glucose 94, Calcium 7.6 L, Total Bilirubin 7.10 H, Direct Bilirubin 5.77 H, AST 946 H, ALT 1436 H, Alkaline Phosphatase 179 H, Total Protein 6.1 L, Albumin 2.3 L, Globulin 3.8 Assessment & Plan Assessment/Plan (1) Sepsis: (2) UTI (urinary tract infection): (3) Gastroenteritis: (4) Elevated liver enzymes: PLAN: Plan #Transaminitis on top of hepatitis B, unclear thus far if acute versus chronic -Previous CK within normal limits, did have initial uptrend in AST ALT up to 1913 AST in 2252 ALT with AST today 1624 and ALT 2316. Received N-acety lcysteine. UDS positive for amphetamines and high LDH of 810 this may be culprit. Liver ultrasound with enlarged fatty infiltrated liver with no evidence of cholelithiasis or acute cholecystitis but did have borderline dilation of distal common bile duct without evidence of intraductal stone. Hep B surface antigen and core IgM antibodies both positive with a negative hep B surface antibody but need hepatitis B eAg and eAb as well as PCR DNA quant for further determination if acute or chronic hep B. Both AST and ALT downtrending today #EBV antibody positive -Patient not only has capsid IgG and IgM antibody positive which would typically indicate acute infection but also has nuclear IgG antibody which is not seen in the acute phase of EBV typically indicating past infection. Based on pattern suspect past EBV infection Charges/Coding Visit Charges Inpatient E&M: 56616 Init Hosp L3
--- NOTE | 2022-10-20 13:36 | CASEMGMT ---
Social Work SW introduced self and role to patient. SW completed SDOH questionnaire with patient. Pt provided with full [place] information. Pt reports she has transportation information from last hospitalization which is her primary concern at this time. Pt asked about clothing assistance for her teenage son. SW reviewed clothing resources and location on [place] list. Pt requested information on Advance Directives. Pt reports she would like to have her daughter and sister as HCPOA and she would like to complete living will paperwork. SW provided documents and explained to patient. Unable to complete due to lab testing. Paperwork left and patient advised to contact social work when ready to complete. Elly Donnelly DIGITAL TRAFFIC COORDINATOR, [employer]MONIA BOX OPERATOR
[2022-10-20] MEDS: Ketorolac 15 MG/ML Vial IV ×2 (14:52→22:45)
--- NOTE | 2022-10-20 16:29 | CASEMGMT ---
Social Work SW met with pt and assisted in completing living will and health care POA naming her dgt Tasneem Leary. Original given to pt and copy placed on pt chart. ZACH Cabezas
--- NOTE | 2022-10-20 16:30 | CASEMGMT ---
LAURI LAMAS readmission note: Prior admission: Admitted 10/10/22 w/swelling of hands and generalized weakness. She was diagnosed w/Hepatitis B. Pt discharged home on 10/12 w/ appt scheduled w/Dr Du for 10/19/22 to get established as a new patient and to f/u with Dr Krueger. Current admission: Pt went to appt w/Dr Du 10/19 who repeated labs, noted bili increased from 1 to 7.7 therefore they advised her to be evaluated in ED. Pt admitted 10/19 w/N/V, transaminitis on top of Hep B. LAURI LAMAS to room. Pt resting in bed. She states she has been taking her meds as prescribed since last admission. She saw Dr Du yesterday as scheduled and advised to come to ED. She does not have any further appts scheduled w/Dr Du but plans to f/u with her after d/c. She has an appt scheduled w/Dr Krueger on December 08, but plans to call his office to see if she can get a sooner appt. She states has all her meds as needed and denies having any discharge planning needs or concerns. Niurka HORTA RN, CM
[2022-10-20] MEDS: Ondansetron ODT 4 MG Tablet PO (20:19)
[2022-10-21 02:30] VITALS: BP 94/61; PULSE 62; RESP 14; TEMP 37.1; O2SAT 98
[2022-10-21] MEDS: Mag Hydrox/Al Hydrox/Simeth 30 ML UDC PO (03:32)
[2022-10-21] MEDS: Ketorolac 15 MG/ML Vial IV ×3 (05:31→22:28)
[2022-10-21 07:13] LABS: Absolute Lymphocyte Count 1.04 X10^3/uL (0.83-4.51); Absolute Neutrophil Count 3.3 X10^3/uL (2.0-7.7); Basophil# 0.03 X10^3/uL; Basophil% 0.6 % (0-1); Eosinophil# 0.06 X10^3/uL; Eosinophils% 1.2 % (0-5); Hematocrit 31.9 % (37-47); Hemoglobin 11.3 g/dL (12.0-15.0); Lymphocyte # 1.04 X10^3/ul (0.83-4.51); Lymphocyte % 20.9 % (19-41); Mean Corp Hgb Conc 35.4 g/dL (32-36); Mean Corpuscular Hgb 31.5 pg (27.0-32.0); Mean Corpuscular Volume 88.9 fL (81-99); Mean Platelet Vol. 10.6 fl (6.2-12.0); Monocyte# 0.48 X10^3/uL; Monocyte% 9.6 % (0-10); NRBC Flagged by Analyzer 0 % (0-5); Neutrophil # 3.33 X10^3/uL (2.7-7.7); Neutrophil % 66.9 % (47-70); Platelet Count 180 K/mm3 (150-450); RBC Distribution Width CV 17.2 % (11.6-14.6); RBC Distribution Width SD 53.7 fl (35.1-43.9); Red Blood Count 3.59 M/mm3 (4.2-5.4)
--- NOTE | 2022-10-21 07:37 | PCM.PN.HOSP ---
Reason for Visit Reason for Visit: Diagnoses Acute hepatitis B without delta-agent and without hepatic coma (10/20/22) Lupus anticoagulant syndrome (10/20/22) Cannabis abuse with unspecified cannabis-induced disorder (10/20/22) Personal history of other venous thrombosis and embolism (10/20/22) Subjective Subjective Patient seen complains of feeling tired and aching all over. No significant improvement in liver function test. Objective Data Objective Data Vital Signs: Vital Signs Temp Pulse Resp BP Pulse Ox O2 Del Method 98.7 F 62 14 94/61 98 Room Air 10/21/22 02:30 10/21/22 02:30 10/21/22 02:30 10/21/22 02:30 10/21/22 02:30 10/21/22 02:30 Oxygen Delivery Method [5] Room Air Oxygen Delivery Method [4] Room Air Oxygen Delivery Method [3] Room Air Oxygen Delivery Method [2] Room Air Oxygen Delivery Method [1 ( Room Air Initial Baseline)] Oxygen Delivery Method Room Air Weight: 55.6 kg Body Mass Index (BMI) 21.7 Intake & Output: Intake and Output for Last 24 Hours 10/19/22 10/20/22 10/21/22 23:59 23:59 23:59 Intake Total 1480.00 / 1730.00 1500 / 1500 Output Total 600 / 600 450 / 450 Balance 880.00 / 1130.00 1050 / 1050 Medical Nutrition Assessment Dietitian: Malnutrition Criteria Met Start: 10/20/22 15:48 Freq: Status: Active Protocol: Document 10/20/22 15:49 JOSE MANUEL (Rec: 10/20/22 15:49 JOSE MANUEL [id number]) Nutrition Malnutrition Evidence of Malnutrition Exists Yes Malnutrition (severe): Acute Illness/Injury Evidenced By Suboptimal Energy Intake ( Severe),Weight Loss (Severe) Clinical Problem Acute Disease or Injury Related Malnutrition Etiology related to issues w/ nausea and vomiting and having inadequate energy intake Signs/Symptoms as evidenced by ~9% wt loss and <50% of est nutritional needs x 2 mo Status Active Problem Recommendation Dietitian Recommendations/Changes Continue liberal regular diet Will order Ensure Clear 240 ml w/ meals for increased nutrition if consumed. Lab / Micro Data Result Diagrams: 10/21/22 07:00 10/21/22 07:00 Labs: Laboratory Results - last 24 hr 10/21/22 07:00: WBC 5.0, RBC 3.59 L, Hgb 11.3 L, Hct 31.9 L, MCV 88.9, MCH 31.5, MCHC 35.4, RDW Std Deviation 53.7 H, RDW Coeff of Paulo 17.2 H, Plt Count 180, MPV 10.6, Immature Gran % (Auto) 0.800, Neut % (Auto) 66.9, Lymph % (Auto) 20.9, [place] % (Auto) 9.6, Eos % (Auto) 1.2, Baso % (Auto) 0.6, Absolute Neuts (auto) 3.3, Absolute Lymphs (auto) 1.04, Nucleated RBC % 0 Radiography Diagnostic Testing: Radiology Impression MRCP 10/20/22 07:25 IMPRESSION: 1. No biliary obstruction, choledocholithiasis or biliary dilation. 2. Contracted gallbladder with pericholecystic fluid, unchanged since ultrasound on the previous day. Electronically Signed: Lalito Carrington (Brooks) at 11:32 EDT , Biopsy CT 10/20/22 08:21 IMPRESSION: 1. CT directed core needle biopsy of the liver, using CT image guidance with image documentation as described. 2. Conscious Sedation protocol utilized with independent monitoring. Electronically Signed: Aaron Rosenthal MD at 11:14 EDT , Physical Exam Narrative GENERAL: cooperative HEENT: Atraumatic; normocephalic EYES;icteric, Normal Conjunctiva NECK; supple, normal thyroid, RESPIRATORY: Diminished to auscultation CARDIOVASCULAR: Regular S1 S2, GI: soft, normoactive bowel sounds, : No Renal angle tenderness; EXTREMITIES: No edema, no clubbing, MUSCULOSKELETAL: no muscle wasting NEURO: Awake; no lateralizing signs. SKIN: No Rash PSYCH; Flat affect Assessment & Plan Assessment/Plan (1) Hepatitis B: QUALIFIERS: Hepatic coma status: without hepatic coma Hepatitis delta agent presence: without delta-agent Viral hepatitis chronicity: acute Qualified Code(s): B16.9 - Acute hepatitis B without delta-agent and without hepatic coma (2) Lupus anticoagulant disorder: (3) Hx of blood clots: (4) Cannabis abuse with cannabis-induced disorder: PLAN: Plan Patient is a 42-year-old lady with history of hepatitis B admitted with nausea and vomiting. Patient was found to have acute transaminitis admitted to regular nursing floor for further management 1. Nausea and vomiting ? Do suspect cannabis use with cannabinoid induced hyperemesis counseled on cessation 2. Acute transaminitis ? In the setting of hepatitis B. Patient has been admitted to monitored bed with consultation placed to GI plan is for patient to undergo further evaluation with a liver biopsy. Consult was placed to Dr. Krueger with GI case discussed with him. Repeat labs ordered for a.m. ? 10/21/2022; Patient seen complains of feeling tired and aching all over. No significant improvement in liver function test. 3. 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 Patient is on Lovenox continue 4. GERD ? On PPI 5. History of epilepsy ? Currently not on any antiepileptic medication patient to follow-up with primary neurologist for resumption of treatment if indicated 6. DVT prophylaxis Patient on Lovenox Time spent in the patient's overall evaluation,decision-making process, review of diagnostic data, adjustment of management, discussion with other providers, nursing nursing and ancillary staff involved in patient's care documentation, 35 Minutes Charges/Coding Visit Charges Inpatient E&M: 57801 Subs Hosp L2
[2022-10-21 07:45] VITALS: O2SAT 97
[2022-10-21 07:51] LABS: AST(SGOT) 946 U/L (15-37); Alanine Aminotransfer ALT/SGPT 1436 U/L (13-56); Albumin, Serum 2.3 g/dL (3.2-5.0); Alkaline Phosphatase 179 U/L (45-117); Anion Gap 4 (5-15); BUN 7 mg/dL (7-18); BUN/Creat Ratio 11.6 RATIO (10-20); Bilirubin, Direct 5.77 mg/dL (0.00-0.30); Calcium,Total 7.6 mg/dL (8.5-10.1); Chloride 110 mmol/L (98-107); EST Glomerular Filtration Rate 116 mL/min (>60); Est Glom Filt Rate - Afr Amer 141 mL/min (>60); Estimated Creatinine Clearance 101.04 ml/min; Globulin 3.8 g/dL (2.2-4.2); Glucose 94 mg/dL (74-106); Potassium 4.1 mmol/L (3.5-5.1); Protein, Total 6.1 g/dL (6.4-8.2); Sodium Level 138 mmol/L (136-145)
[2022-10-21 10:00] VITALS: BP 103/62; PULSE 75; RESP 18; TEMP 36.7; O2SAT 98
[2022-10-21] MEDS: Ondansetron 4 MG/2 ML Vial IV ×2 (10:10→22:29)
[2022-10-21] MEDS: Pantoprazole Sodium 40 MG Tablet PO (10:10)
[2022-10-21] MEDS: Enoxaparin 100 MG/ML Syringe 90 MG SC (10:10)
[2022-10-21] MEDS: 0.9% Saline Lock 10 ML Syringe IV ×2 (10:10→14:26)
[2022-10-21] MEDS: Ibuprofen 200 MG Tablet 400 MG PO (11:09)
--- NOTE | 2022-10-21 13:30 | PN.GI_ITS ---
Subjective Subjective Patient states that she feels about the same as she did yesterday. She denies any abdominal pain except for the right upper quadrant pain but does feel achy in her muscles and joints. Objective Data Objective Data Vital Signs: Vital Signs Temp Pulse Resp BP Pulse Ox O2 Del Method 98.1 F 75 18 103/62 98 Room Air 10/21/22 10:00 10/21/22 10:00 10/21/22 10:00 10/21/22 10:00 10/21/22 10:00 10/21/22 10:00 Oxygen Delivery Method [5] Room Air Oxygen Delivery Method [4] Room Air Oxygen Delivery Method [3] Room Air Oxygen Delivery Method [2] Room Air Oxygen Delivery Method [1 ( Room Air Initial Baseline)] Oxygen Delivery Method Room Air Weight: 122 lb 9.232 oz Body Mass Index (BMI) 21.7 Intake & Output: Intake and Output for Last 24 Hours 10/19/22 10/20/22 10/21/22 23:59 23:59 23:59 Intake Total 1480.00 / 1730.00 1500 / 1500 Output Total 600 / 600 450 / 450 Balance 880.00 / 1130.00 1050 / 1050 Medical Nutrition Assessment Dietitian: Malnutrition Criteria Met Start: 10/20/22 15:48 Freq: Status: Active Protocol: Document 10/20/22 15:49 JOSE MANUEL (Rec: 10/20/22 15:49 JOSE MANUEL [id number]) Nutrition Malnutrition Evidence of Malnutrition Exists Yes Malnutrition (severe): Acute Illness/Injury Evidenced By Suboptimal Energy Intake ( Severe),Weight Loss (Severe) Clinical Problem Acute Disease or Injury Related Malnutrition Etiology related to issues w/ nausea and vomiting and having inadequate energy intake Signs/Symptoms as evidenced by ~9% wt loss and <50% of est nutritional needs x 2 mo Status Active Problem Recommendation Dietitian Recommendations/Changes Continue liberal regular diet Will order Ensure Clear 240 ml w/ meals for increased nutrition if consumed. Lab / Micro Data Result Diagrams: 10/21/22 07:00 10/21/22 07:00 Labs: Laboratory Results - last 24 hr 10/21/22 07:00: WBC 5.0, RBC 3.59 L, Hgb 11.3 L, Hct 31.9 L, MCV 88.9, MCH 31.5, MCHC 35.4, RDW Std Deviation 53.7 H, RDW Coeff of Paulo 17.2 H, Plt Count 180, MPV 10.6, Immature Gran % (Auto) 0.800, Neut % (Auto) 66.9, Lymph % (Auto) 20.9, [place] % (Auto) 9.6, Eos % (Auto) 1.2, Baso % (Auto) 0.6, Absolute Neuts (auto) 3.3, Absolute Lymphs (auto) 1.04, Nucleated RBC % 0 10/21/22 07:00: Sodium 138, Potassium 4.1, Chloride 110 H, Carbon Dioxide 24.0, Anion Gap 4 L, BUN 7, Creatinine 0.60, Estim Creat Clear Calc 101.04, Est GFR (MDRD) Af Amer 141, Est GFR (MDRD) Non-Af 116, BUN/Creatinine Ratio 11.6, Glucose 94, Calcium 7.6 L, Total Bilirubin 7.10 H, Direct Bilirubin 5.77 H, AST 946 H, ALT 1436 H, Alkaline Phosphatase 179 H, Total Protein 6.1 L, Albumin 2.3 L, Globulin 3.8 Physical Exam Narrative GENERAL: cooperative HEENT: Atraumatic; normocephalic EYES;icteric, Normal Conjunctiva NECK; supple, normal thyroid, RESPIRATORY: Diminished to auscultation CARDIOVASCULAR: Regular S1 S2, GI: soft, normoactive bowel sounds, : No Renal angle tenderness; EXTREMITIES: No edema, no clubbing, MUSCULOSKELETAL: no muscle wasting NEURO: Awake; no lateralizing signs. SKIN: No Rash PSYCH; Flat affect Assessment & Plan Assessment/Plan (1) Sepsis: (2) UTI (urinary tract infection): (3) Gastroenteritis: (4) Elevated liver enzymes: PLAN: Plan #Transaminitis on top of hepatitis B, unclear thus far if acute versus chronic -Previous CK within normal limits, did have initial uptrend in AST ALT up to 1913 AST in 2252 ALT with AST today 1624 and ALT 2316. Received N- acetylcysteine. UDS positive for amphetamines and high LDH of 810 this may be culprit. Liver ultrasound with enlarged fatty infiltrated liver with no evidence of cholelithiasis or acute cholecystitis but did have borderline dilation of distal common bile duct without evidence of intraductal stone. Hep B surface antigen and core IgM antibodies both positive with a negative hep B surface antibody but need hepatitis B eAg and eAb as well as PCR DNA quant for further determination if acute or chronic hep B. Both AST and ALT downtrending today #EBV antibody positive -Patient not only has capsid IgG and IgM antibody positive which would typically indicate acute infection but also has nuclear IgG antibody which is not seen in the acute phase of EBV typically indicating past infection. Based on pattern suspect past EBV infection 10/21: There is no sign of obstruction on her MRCP. Her labs are about the same as they were yesterday. She underwent liver biopsy and is pending. I will start Mucomyst today. Charges/Coding Visit Charges Inpatient E&M: 99919 Subs Hosp L3
[2022-10-21 14:17] VITALS: BP 104/69; PULSE 74; RESP 18; TEMP 36.7; O2SAT 98
[2022-10-21 22:21] VITALS: BP 113/71; PULSE 70; RESP 16; TEMP 37.1; O2SAT 99
[2022-10-22] MEDS: Mag Hydrox/Al Hydrox/Simeth 30 ML UDC PO ×2 (00:17→14:18)
[2022-10-22 04:08] VITALS: BP 104/65; PULSE 71; RESP 16; TEMP 37; O2SAT 98
[2022-10-22] MEDS: Ketorolac 15 MG/ML Vial IV ×3 (04:30→22:03)
[2022-10-22 05:51] LABS: Absolute Lymphocyte Count 1.39 X10^3/uL (0.83-4.51); Absolute Neutrophil Count 3.9 X10^3/uL (2.0-7.7); Basophil# 0.09 X10^3/uL; Basophil% 1.5 % (0-1); Eosinophils% 1.7 % (0-5); Hematocrit 38.1 % (37-47); Hemoglobin 11.8 g/dL (12.0-15.0); Lymphocyte # 1.39 X10^3/ul (0.83-4.51); Lymphocyte % 22.9 % (19-41); Mean Corpuscular Hgb 30.6 pg (27.0-32.0); Mean Platelet Vol. 10.4 fl (6.2-12.0); Monocyte# 0.51 X10^3/uL; Monocyte% 8.4 % (0-10); NRBC Flagged by Analyzer 0 % (0-5); Neutrophil # 3.93 X10^3/uL (2.7-7.7); Neutrophil % 64.8 % (47-70); POSITIVE MORPHOLOGY YES; Platelet Count 188 K/mm3 (150-450); RBC Distribution Width CV 19.1 % (11.6-14.6); RBC Distribution Width SD 66.7 fl (35.1-43.9); Red Blood Count 3.85 M/mm3 (4.2-5.4); White Blood Count 6.1 K/mm3 (4.4-11.0)
[2022-10-22 05:55] LABS: Differential Indicated SCAN CRITERIA MET
[2022-10-22 06:38] LABS: Differential Comment SCANNED; Target Cells 2+
[2022-10-22] MEDS: Ondansetron 4 MG/2 ML Vial IV ×2 (06:41→22:02)
[2022-10-22 07:31] VITALS: O2SAT 98
--- NOTE | 2022-10-22 07:33 | PN.HOSP_ITS ---
Reason for Visit Reason for Visit: Diagnoses Sepsis, unspecified organism (10/20/22) Acute hepatitis B without delta-agent and without hepatic coma (10/20/22) Lupus anticoagulant syndrome (10/20/22) Cannabis abuse with unspecified cannabis-induced disorder (10/20/22) Noninfective gastroenteritis and colitis, unspecified (10/20/22) Urinary tract infection, site not specified (10/20/22) Abnormal levels of other serum enzymes (10/20/22) Personal history of other venous thrombosis and embolism (10/20/22) Subjective Subjective Patient's EBV serology came back positive. Seen this a.m. complains of abdominal discomfort Objective Data Objective Data Vital Signs: Vital Signs Temp Pulse Resp BP Pulse Ox O2 Del Method 98.6 F 71 16 104/65 98 Room Air 10/22/22 04:08 10/22/22 04:08 10/22/22 04:08 10/22/22 04:08 10/22/22 07:31 10/22/22 07:31 Oxygen Delivery Method [5] Room Air Oxygen Delivery Method [4] Room Air Oxygen Delivery Method [3] Room Air Oxygen Delivery Method [2] Room Air Oxygen Delivery Method [1 ( Room Air Initial Baseline)] Oxygen Delivery Method Room Air Weight: 55.6 kg Body Mass Index (BMI) 21.7 Intake & Output: Intake and Output for Last 24 Hours 10/20/22 10/21/22 10/22/22 23:59 23:59 23:59 Intake Total 1480.00 / 1730.00 1713.5 / 2013.5 400 / 400 Output Total 600 / 600 450 / 1825 1725 / 1725 Balance 880.00 / 1130.00 1263.5 / 188.5 -1325 / -1325 Medical Nutrition Assessment Dietitian: Malnutrition Criteria Met Start: 10/20/22 15:48 Freq: Status: Active Protocol: Document 10/20/22 15:49 JOSE MANUEL (Rec: 10/20/22 15:49 JOSE MANUEL [id number]) Nutrition Malnutrition Evidence of Malnutrition Exists Yes Malnutrition (severe): Acute Illness/Injury Evidenced By Suboptimal Energy Intake ( Severe),Weight Loss (Severe) Clinical Problem Acute Disease or Injury Related Malnutrition Etiology related to issues w/ nausea and vomiting and having inadequate energy intake Signs/Symptoms as evidenced by ~9% wt loss and <50% of est nutritional needs x 2 mo Status Active Problem Recommendation Dietitian Recommendations/Changes Continue liberal regular diet Will order Ensure Clear 240 ml w/ meals for increased nutrition if consumed. Lab / Micro Data Result Diagrams: 10/22/22 05:35 10/21/22 07:00 Labs: Laboratory Results - last 24 hr 10/21/22 07:00: Sodium 138, Potassium 4.1, Chloride 110 H, Carbon Dioxide 24.0, Anion Gap 4 L, BUN 7, Creatinine 0.60, Estim Creat Clear Calc 101.04, Est GFR (MDRD) Af Amer 141, Est GFR (MDRD) Non-Af 116, BUN/Creatinine Ratio 11.6, Glucose 94, Calcium 7.6 L, Total Bilirubin 7.10 H, Direct Bilirubin 5.77 H, AST 946 H, ALT 1436 H, Alkaline Phosphatase 179 H, Total Protein 6.1 L, Albumin 2.3 L, Globulin 3.8 10/22/22 05:35: WBC 6.1, RBC 3.85 L, Hgb 11.8 L, Hct 38.1, MCV 99.0 D, MCH 30.6, MCHC 31.0 L D, RDW Std Deviation 66.7 H, RDW Coeff of Paulo 19.1 H, Plt Co unt 188, MPV 10.4, Immature Gran % (Auto) 0.700, Neut % (Auto) 64.8, Lymph % (Auto) 22.9, [place] % (Auto) 8.4, Eos % (Auto) 1.7, Baso % (Auto) 1.5 H, Absolute Neuts (auto) 3.9, Absolute Lymphs (auto) 1.39, Nucleated RBC % 0, Differential Comment SCANNED, Target Cells 2+ 10/22/22 05:35: Sodium Cancelled, Potassium Cancelled, Chloride Cancelled, Carbon Dioxide Cancelled, Anion Gap Cancelled, BUN Cancelled, Creatinine Cancelled, Estim Creat Clear Calc Cancelled, Est GFR (MDRD) Af Amer Cancelled, Est GFR (MDRD) Non-Af Cancelled, BUN/Creatinine Ratio Cancelled, Glucose Cancelled, Calcium Cancelled, Total Bilirubin Cancelled, Direct Bilirubin Cancelled, AST Cancelled, ALT Cancelled, Alkaline Phosphatase Cancelled, Total Protein Cancelled, Albumin Cancelled, Globulin Cancelled Physical Exam Narrative GENERAL: Patient is tearful HEENT: Atraumatic; normocephalic EYES;icteric, Normal Conjunctiva NECK; supple, normal thyroid, RESPIRATORY: Diminished to auscultation CARDIOVASCULAR: Regular S1 S2, GI: soft, normoactive bowel sounds, : No Renal angle tenderness; EXTREMITIES: No edema, no clubbing, MUSCULOSKELETAL: no muscle wasting NEURO: Awake; no lateralizing signs. SKIN: No Rash PSYCH; Flat affect Assessment & Plan Assessment/Plan (1) Hepatitis B: QUALIFIERS: Hepatic coma status: without hepatic coma Hepatitis delta agent presence: without delta-agent Viral hepatitis chronicity: acute Qualified Code(s): B16.9 - Acute hepatitis B without delta-agent and without hepatic coma (2) Lupus anticoagulant disorder: (3) Hx of blood clots: (4) Cannabis abuse with cannabis-induced disorder: PLAN: Plan Patient is a 42-year-old lady with history of hepatitis B admitted with nausea and vomiting. Patient was found to have acute transaminitis admitted to regular nursing floor for further management 1. Nausea and vomiting ? Do suspect cannabis use with cannabinoid induced hyperemesis counseled on cessation 2. Acute transaminitis ? In the setting of hepatitis B with superimposed EBV infection. Patient has be en admitted to monitored bed with consultation placed to GI plan is for patient to undergo further evaluation with a liver biopsy. Consult was placed to Dr. Krueger with GI case discussed with him. Repeat labs ordered for a.m. ? 10/21/2022; Patient seen complains of feeling tired and aching all over. No significant improvement in liver function test. ? 10/22/2022; patient EBV serology came back positive started on Mucomyst by Dr. Krueger with GI 3. 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 Patient is on Lovenox continue 4. GERD ? On PPI 5. History of epilepsy ? Currently not on any antiepileptic medication patient to follow-up with primary neurologist for resumption of treatment if indicated 6. DVT prophylaxis Patient on Lovenox Time spent in the patient's overall evaluation,decision-making process, review of diagnostic data, adjustment of management, discussion with other providers, nursing nursing and ancillary staff involved in patient's care documentation, 35 Minutes Charges/Coding Visit Charges Inpatient E&M: 31179 Subs Hosp L2
[2022-10-22] MEDS: Pantoprazole Sodium 40 MG Tablet PO (07:52)
[2022-10-22] MEDS: Ibuprofen 200 MG Tablet 400 MG PO ×2 (07:52→17:10)
[2022-10-22 08:17] VITALS: BP 121/77; PULSE 73; RESP 18; TEMP 36.8; O2SAT 98
[2022-10-22 09:37] LABS: International Normalized Ratio 1.2; Partial Thromboplast Time 29.6 Seconds (24.1-36.2)
[2022-10-22 09:40] LABS: Bilirubin, Direct 6.76 mg/dL (0.00-0.30)
[2022-10-22 10:14] LABS: ALB/GLOB Ratio 0.6 RATIO (0.9-2.4); AST(SGOT) 802 U/L (15-37); Alanine Aminotransfer ALT/SGPT 1182 U/L (13-56); Albumin, Serum 2.5 g/dL (3.2-5.0); Alkaline Phosphatase 207 U/L (45-117); Anion Gap 6 (5-15); BUN 5 mg/dL (7-18); BUN/Creat Ratio 8.3 RATIO (10-20); CRP 6.15 mg/L (0.0-3.0); Chloride 109 mmol/L (98-107); EST Glomerular Filtration Rate 115 mL/min (>60); Est Glom Filt Rate - Afr Amer 140 mL/min (>60); Estimated Creatinine Clearance 101.04 ml/min; Globulin 3.9 g/dL (2.2-4.2); Glucose 100 mg/dL (74-106); LDH 387 U/L (84-246); Potassium 4.2 mmol/L (3.5-5.1); Protein, Total 6.4 g/dL (6.4-8.2); Sodium Level 136 mmol/L (136-145)
[2022-10-22] MEDS: 0.9% Saline Lock 10 ML Syringe IV (10:55)
[2022-10-22 14:15] VITALS: BP 109/79; PULSE 76; RESP 18; TEMP 37; O2SAT 98
[2022-10-22 15:21] LABS: Mucous, Urine 0 SEEN /hpf (<or=2+)
[2022-10-22 15:24] LABS: Color, Urine Amber (Yellow); Glucose, Dipstick Normal (Normal); Ketone-Dipstick 5 mg/dl (Negative); Leukocyte Esterase-Dipstick 25 /ul (Negative); Nitrite-Dipstick Negative (Negative); Occult Blood-Urine 25 /ul (Negative); Protein-Dipstick 15 mg/dl (Negative); Specific Gravity, Urine 1.015 (1.002-1.030); Urine Clarity Clear (Clear); Urine Urobilinogen 4 mg/dl (Normal)
[2022-10-22 15:47] LABS: Urine Bilirubin Dipstick 3 mg/dL (Negative)
[2022-10-22 15:48] LABS: Bacteria RARE /hpf (None Seen); Red Blood Cells-Urine 0-5 SEEN /hpf (0-5); Squamous Epithelial Cells - UA 0-5 SEEN /hpf (5-10); Trichomonas 0-5 SEEN /hpf (None Seen); White Blood Cells 0-5 SEEN /hpf (0-5)
[2022-10-22 22:01] VITALS: BP 95/54; PULSE 84; RESP 16; TEMP 36.9; O2SAT 97
[2022-10-22] MEDS: MELATONIN 10 MG TABLET PO (22:02)
[2022-10-23 03:24] VITALS: BP 97/65; PULSE 69; RESP 16; TEMP 36.8; O2SAT 97
[2022-10-23] MEDS: Mag Hydrox/Al Hydrox/Simeth 30 ML UDC PO (03:27)
[2022-10-23] MEDS: Ketorolac 15 MG/ML Vial IV ×2 (03:27→14:36)
[2022-10-23 06:24] LABS: Absolute Lymphocyte Count 2.11 X10^3/uL (0.83-4.51); Absolute Neutrophil Count 4.5 X10^3/uL (2.0-7.7); Basophil# 0.04 X10^3/uL; Basophil% 0.6 % (0-1); Eosinophil# 0.07 X10^3/uL; Hematocrit 30.3 % (37-47); Hemoglobin 10.6 g/dL (12.0-15.0); Lymphocyte # 2.11 X10^3/ul (0.83-4.51); Mean Corpuscular Hgb 30.7 pg (27.0-32.0); Mean Corpuscular Volume 87.8 fL (81-99); Mean Platelet Vol. 10.7 fl (6.2-12.0); Monocyte# 0.52 X10^3/uL; Monocyte% 7.2 % (0-10); NRBC Flagged by Analyzer 0 % (0-5); Neutrophil # 4.48 X10^3/uL (2.7-7.7); Neutrophil % 61.5 % (47-70); Platelet Count 218 K/mm3 (150-450); RBC Distribution Width CV 18.1 % (11.6-14.6); RBC Distribution Width SD 54.4 fl (35.1-43.9); Red Blood Count 3.45 M/mm3 (4.2-5.4); White Blood Count 7.3 K/mm3 (4.4-11.0)
[2022-10-23 06:50] LABS: AST(SGOT) 390 U/L (15-37); Alanine Aminotransfer ALT/SGPT 939 U/L (13-56); Albumin, Serum 2.2 g/dL (3.2-5.0); Alkaline Phosphatase 197 U/L (45-117); Anion Gap 3 (5-15); BUN 6 mg/dL (7-18); BUN/Creat Ratio 9.6 RATIO (10-20); Chloride 109 mmol/L (98-107); Creatinine, Serum 0.62 mg/dL (0.55-1.02); EST Glomerular Filtration Rate 112 mL/min (>60); Est Glom Filt Rate - Afr Amer 135 mL/min (>60); Estimated Creatinine Clearance 97.78 ml/min; Globulin 3.8 g/dL (2.2-4.2); Glucose 91 mg/dL (74-106); Potassium 3.9 mmol/L (3.5-5.1); Sodium Level 138 mmol/L (136-145)
[2022-10-23] MEDS: 0.9% Saline Lock 10 ML Syringe IV ×3 (08:19→17:14)
[2022-10-23] MEDS: Ondansetron 4 MG/2 ML Vial IV ×2 (08:19→17:14)
[2022-10-23 08:24] VITALS: BP 104/69; PULSE 73; RESP 16; TEMP 36.6; O2SAT 100
[2022-10-23] MEDS: Enoxaparin 100 MG/ML Syringe 90 MG SC (09:34)
[2022-10-23] MEDS: Pantoprazole Sodium 40 MG Tablet PO (09:34)
[2022-10-23] MEDS: Ibuprofen 200 MG Tablet 400 MG PO (10:48)
--- NOTE | 2022-10-23 12:56 | DCINST_ITS ---
Discharge Instructions Diet Discharge Diet: No restrictions Activity Discharge Activity: Return to Normal Activity Dressing / Incision Call your doctor if you observe: Fever of 101 or Higher, Shortness of breath, Dizziness, Fainting spells, Swelling in the ankles, Chest pain and Increased palpitations (irregular heartbeat) Follow Up Care Test Results: Test results from this visit will be discussed in further detail at your follow- up appointment, if applicable. Discharge Plan Admission Admit Date/Time: 10/20/22 13:29 Attending Provider: Avinash Xavier Primary Care Provider: Colleen Du Consulting Providers: Bam Fatima ; Aaron Rosenthal ; Salvador Quinonez Instructions Patient Instructions: RAD RN Biopsy Liver Dc, CATINA RN Procedural Sedation Discharge Orders/Prescriptions Prescriptions: Continued pantoprazole [Protonix] 40 mg tablet,delayed release (DR/EC) 40 mg PO DAILY Qty: 30 1RF ondansetron 4 mg tablet,disintegrating 4 mg PO Q6H PRN (Reason: nausea and vomiting) Qty: 30 0RF enoxaparin [Lovenox] 100 mg/mL syringe 90 mg subcut DAILY Qty: 30 2RF Referrals / Follow Up: Colleen Du MD [Primary Care Provider] - Within 1 Week FriendBro DO [Med Staff - Active Staff] - Within 3 Months Disposition Disposition (needs filled in before D/C Order can be placed): Home, Self Care
--- NOTE | 2022-10-23 12:58 | PCM.DC.SUM ---
Providers Date of Admission: 10/20/22 Primary Care Physician: Dr. Colleen Du MD Consultations 10/19/22 21:51 Consult: Gastroenterology Routine Consulting Provider: [facility] Reason for Consult: eval hepatitis EMERGENT Consult: No Notified: Yes Date Notified: 10/20/22 Time Notified: 06:32 Method of Notification: Text 10/20/22 08:22 Consult: Interventional Radiology Routine Consulting Provider: Aaron Rosenthal Reason for Consult: severe hepatitts EMERGENT Consult: Yes MD Notified: Yes Date Notified: 10/20/22 Time Notified: 08:22 Method of Notification: Verbal Method of Consult:: Telemedicine Reason For Visit: NAUSEA, VOMITING Diagnosis Discharge Diagnosis (1) Hepatitis B: Status: Acute Code(s): B19.10 - Unspecified viral hepatitis B without hepatic coma Qualifiers: Viral hepatitis chronicity: acute Hepatic coma status: without hepatic coma Hepatitis delta agent presence: without delta-agent Qualified Code(s): B16.9 - Acute hepatitis B without delta-agent and without hepatic coma (2) Lupus anticoagulant disorder: Status: Acute Code(s): D68.62 - Lupus anticoagulant syndrome (3) Hx of blood clots: Status: Acute Code(s): Z86.718 - Personal history of other venous thrombosis and embolism (4) Cannabis abuse with cannabis-induced disorder: Status: Acute Code(s): F12.19 - Cannabis abuse with unspecified cannabis-induced disorder Medications at Discharge Home Medications enoxaparin 100 mg/mL subcutaneous syringe (Lovenox) 90 mg (0.9 mL) subcut DAILY #30 mL 10/12/22 ondansetron 4 mg disintegrating tablet 4 mg PO Q6H PRN nausea and vomiting #30 tabs 10/19/22 pantoprazole 40 mg tablet,delayed release (Protonix) 40 mg PO DAILY #30 tabs 10/19/22 Hospital Course Operations None Procedures - (Liver biopsy) Summary of Care Provided Minutes Spent on Discharge: 35 Hospital Course: Per HPI: GABRIELA DUARTE, is a 42 F who presents with abdominal pain, worsening acid reflux, new jaundice and joint pain. She is not eating much and has about 8 episodes of vomiting bilious type emesis. She feels like knives are stabbing her abdomen. She is having bowel movements and urinating ok She was seeing her internal medicine doctor (Valeriano) who repeated labs, and they noted rising bili from 1 to 7.7 therefore they advised her to be evaluated in ED. Recently was in hospital for hepatitis, likely of Hep B origin. She was discharged and had f/u in Dec with Dr Evans, however patient isn't sure she can wait that long. Hospital Course: 1. Acute transaminitis secondary to acute on chronic hepatitis B and a subacute EBV infection?42-year-old female presents to the hospital with abdominal pain. She does have a history of fibromyalgia that she uses marijuana for. She says that it is mainly medical marijuana however on occasion she is run out and found someone else and she says that is why some of her drug test come back positive with cocaine or amphetamines because she is not sure what the marijuana is laced with. She denies every using IV drug use though she cannot explain how she developed a hepatitis B infection. In discussion with gastroenterology, the liver biopsy is pending however they feel that she is stable to go home as there is no more current treatment. She is not in liver failure and her pain is likely combination of her fibromyalgia on top of her transaminitis. A herpes panel is pending but there is no treatment for the acute on chronic hepatitis B and EBV. Hepatitis D is also pending. Her liver function is improving and she does respond very well to N-acetylcysteine. I discussed with her the plan for discharge today she expressed understanding of the risk benefits of going home and would like to go home today. 2. History of lupus anticoagulant, GERD, history of epilepsy are all chronic medical conditions which complicate her care. Her home medications were used where appropriate Physical Exam Narrative General: Alert, Oriented x3, Cooperative, No apparent distress HEENT: Atraumatic, PERRLA, EOMI, Normocephalic Oral: Moist Mucosa Neck: Supple, No JVD Lungs: Clear to auscultation, Normal air movement, No rhonchi, No wheeze, No rales Cardiovascular: Regular rate, Regular Rhythm, Normal S1, Normal S2, No murmurs Abdomen: Soft, Non Tender, Non-Distended, No Hepato-splenomegaly Extremities: No edema, Capillary Refill Less than 3 Seconds Skin: No rashes, No breakdown Musculoskeletal: No Tenderness to Palpation of Joints or Extremities Neurological: Cranial nerves II-XII grossly intact, Motor Exam 5/5 strength throughout, Sensory exam intact to light touch and pain Psych/Mental Status: Normal Affect, Appropriate Medical Records Data Medical Nutrition Assessment Dietitian: Malnutrition Criteria Met Start: 10/20/22 15:48 Freq: Status: Active Protocol: Document 10/20/22 15:49 JOSE MANUEL (Rec: 10/20/22 15:49 JOSE MANUEL [id number]) Nutrition Malnutrition Evidence of Malnutrition Exists Yes Malnutrition (severe): Acute Illness/Injury Evidenced By Suboptimal Energy Intake ( Severe),Weight Loss (Severe) Clinical Problem Acute Disease or Injury Related Malnutrition Etiology related to issues w/ nausea and vomiting and having inadequate energy intake Signs/Symptoms as evidenced by ~9% wt loss and <50% of est nutritional needs x 2 mo Status Active Problem Recommendation Dietitian Recommendations/Changes Continue liberal regular diet Will order Ensure Clear 240 ml w/ meals for increased nutrition if consumed. Weight / BMI Weight Weight: 122 lb 9.232 oz Body Mass Index (BMI) 21.7 ABG / Lab / Microbiology Data Result Diagrams: 10/23/22 05:50 10/23/22 05:50 Laboratory: Laboratory Results - last 24 hr 10/22/22 15:00: Urine Color Alisa, Urine Clarity Clear, Urine pH 6.0, Ur Specific [place] 1.015, Urine Protein 15 H, Urine Glucose (UA) Normal, Urine Ketones 5 H, Urine Occult Blood 25 H, Urine Nitrite Negative, Urine Bilirubin 3 H, Urine Urobilinogen 4 H, Ur Leukocyte Esterase 25 H, Urine RBC 0-5 SEEN, Urine WBC 0-5 SEEN, Ur Squamous Epith Cells 0-5 SEEN, Urine Bacteria RARE, Urine Mucus 0 SEEN, Urine Trichomonas 0-5 SEEN 10/23/22 05:50: WBC 7.3, RBC 3.45 L, Hgb 10.6 L, Hct 30.3 L, MCV 87.8 D, MCH 30.7, MCHC 35.0 D, RDW Std Deviation 54.4 H, RDW Coeff of Paulo 18.1 H, Plt Count 218, MPV 10.7, Immature Gran % (Auto) 0.700, Neut % (Auto) 61.5, Lymph % (Auto) 29.0, [place] % (Auto) 7.2, Eos % (Auto) 1.0, Baso % (Auto) 0.6, Absolute Neuts (auto) 4.5, Absolute Lymphs (auto) 2.11, Nucleated RBC % 0 10/23/22 05:50: Sodium 138, Potassium 3.9, Chloride 109 H, Carbon Dioxide 26.0, Anion Gap 3 L, BUN 6 L, Creatinine 0.62, Estim Creat Clear Calc 97.78, Est GFR (MDRD) Af Amer 135, Est GFR (MDRD) Non-Af 112, BUN/Creatinine Ratio 9.6 L, Glucose 91, Calcium 8.0 L, Total Bilirubin 6.40 H, Direct Bilirubin 5.20 H, AST 390 H, ALT 939 H, Alkaline Phosphatase 197 H, Total Protein 6.0 L, Albumin 2.2 L, Globulin 3.8 Microbiology: Microbiology 10/22/22 15:00 Urine, Clean Catch Urine Culture - Preliminary Culture exhibits no growth. D/C Instructions Discharge Diet: No restrictions Call your doctor if you observe: Fever of 101 or Higher, Shortness of breath, Dizziness, Fainting spells, Swelling in the ankles, Chest pain and Increased palpitations (irregular heartbeat) Meaningful Use Info Meaningful Use Diagnoses (Choose all that apply): None applicable Discharge Plan Admission Admit Date/Time: 10/20/22 13:29 Attending Provider: Avinash Xavier Primary Care Provider: Colleen Du Consulting Providers: Bam Fatima ; Aaron Rosenthal ; Salvador Quinonez Instructions Patient Instructions: CATINA CARREON Biopsy Liver Dc, CATINA CARREON Procedural Sedation Discharge Orders/Prescriptions Prescriptions: Continued pantoprazole [Protonix] 40 mg tablet,delayed release (DR/EC) 40 mg PO DAILY Qty: 30 1RF ondansetron 4 mg tablet,disintegrating 4 mg PO Q6H PRN (Reason: nausea and vomiting) Qty: 30 0RF enoxaparin [Lovenox] 100 mg/mL syringe 90 mg subcut DAILY Qty: 30 2RF Referrals / Follow Up: Colleen Du MD [Primary Care Provider] - Within 1 Week FriendBro DO [Med Staff - Active Staff] - Within 3 Months Disposition Disposition (needs filled in before D/C Order can be placed): Home, Self Care Charges/Coding Visit Charges Inpatient E&M: 34993 Disch Hosp >30min
--- NOTE | 2022-10-23 13:56 | PHA.DC.MR ---
Pharmacy Service has performed discharge medication reconciliation for this patient. The patient's discharge medication list was reviewed for discrepancies and discrepancies were resolved. Home Medications enoxaparin 100 mg/mL subcutaneous syringe (Lovenox) 90 mg (0.9 mL) subcut DAILY #30 mL 10/12/22 ondansetron 4 mg disintegrating tablet 4 mg PO Q6H PRN nausea and vomiting #30 tabs 10/19/22 pantoprazole 40 mg tablet,delayed release (Protonix) 40 mg PO DAILY #30 tabs 10/19/22
--- NOTE | 2022-10-23 14:48 | CHAPLAIN ---
Type of Pastoral Visit _x__ Initial Visit ___ Follow-up Visit ___ On-call Visit ___ General Patient Visit ___ Spiritual Assessment ___ Family Conference ___ Bereavement ___ Rapid Response ___ Code Blue ___ Other (describe below) Pastoral Care Referral From _x__ Patient ___ Family ___ Nurse ___ Physician ___ Motor Vehicle Operator Road Supervisor ___ Preform Plate Maker ___ Other (describe below) Sacrament/Intervention _x__ Active listening ___ Anointing ___ Orthodox ___ Bereavement ___ Communion _x__ Xin exploration ___ _x__ Life review _x__ Prayer ___ Reconciliation ___ Sacrament of Sick _x__ Supportive presence ___ Wedding ___ Other (describe below) Pastoral Comments patient admits easily that she is overwhelmed by several new diagnosis and that she is angry - angry with God and with the medical team; pt later acknowledges that she has not had adequate sleep for two weeks and has not been feeling well; pt also says that her anger with God is related to of her parents, particularly with her mother of whom she was close; there is much to unpack emotionally and spiritually with this presentation by pt; time to listen calmly, time to let her process thoughts, time to explore other possibilities from spiritual perspective, and prayer given; pt expresses thankfulness for someone who really listened to me, and knowing that I will be better tomorrow when all this new stuff isn't dumped on me again ;
--- NOTE | 2022-10-23 17:32 | EX.PCM.PN.GI ---
Subjective Subjective Patient is doing a lot better and her pain has resolved. Her LFTs are improving nicely after the second dose of N-acetylcysteine. Objective Data Objective Data Vital Signs: Vital Signs Temp Pulse Resp BP Pulse Ox O2 Del Method 97.8 F 73 16 104/69 100 Room Air 10/23/22 08:24 10/23/22 08:24 10/23/22 08:24 10/23/22 08:24 10/23/22 08:24 10/23/22 08:29 Oxygen Delivery Method [5] Room Air Oxygen Delivery Method [4] Room Air Oxygen Delivery Method [3] Room Air Oxygen Delivery Method [2] Room Air Oxygen Delivery Method [1 ( Room Air Initial Baseline)] Oxygen Delivery Method Room Air Weight: 122 lb 9.232 oz Body Mass Index (BMI) 21.7 Intake & Output: Intake and Output for Last 24 Hours 10/21/22 10/22/22 10/23/22 23:59 23:59 23:59 Intake Total 1713.5 / 2013.5 913.9 / 1213.9 1050 / 1050 Output Total 450 / 1825 1975 / 2775 1300 / 1300 Balance 1263.5 / 188.5 -1061.1 / -1561.1 -250 / -250 Medical Nutrition Assessment Dietitian: Malnutrition Criteria Met Start: 10/20/22 15:48 Freq: Status: Active Protocol: Document 10/20/22 15:49 JOSE MANUEL (Rec: 10/20/22 15:49 JOSE MANUEL [id number]) Nutrition Malnutrition Evidence of Malnutrition Exists Yes Malnutrition (severe): Acute Illness/Injury Evidenced By Suboptimal Energy Intake ( Severe),Weight Loss (Severe) Clinical Problem Acute Disease or Injury Related Malnutrition Etiology related to issues w/ nausea and vomiting and having inadequate energy intake Signs/Symptoms as evidenced by ~9% wt loss and <50% of est nutritional needs x 2 mo Status Active Problem Recommendation Dietitian Recommendations/Changes Continue liberal regular diet Will order Ensure Clear 240 ml w/ meals for increased nutrition if consumed. Lab / Micro Data Result Diagrams: 10/23/22 05:50 10/23/22 05:50 Labs: Laboratory Results - last 24 hr 10/23/22 05:50: WBC 7.3, RBC 3.45 L, Hgb 10.6 L, Hct 30.3 L, MCV 87.8 D, MCH 30.7, MCHC 35.0 D, RDW Std Deviation 54.4 H, RDW Coeff of Paulo 18.1 H, Plt Count 218, MPV 10.7, Immature Gran % (Auto) 0.700, Neut % (Auto) 61.5, Lymph % (Auto) 29.0, Millard % (Auto) 7.2, Eos % (Auto) 1.0, Baso % (Auto) 0.6, Absolute Neuts (auto) 4.5, Absolute Lymphs (auto) 2.11, Nucleated RBC % 0 10/23/22 05:50: Sodium 138, Potassium 3.9, Chloride 109 H, Carbon Dioxide 26.0, Anion Gap 3 L, BUN 6 L, Creatinine 0.62, Estim Creat Clear Calc 97.78, Est GFR (MDRD) Af Amer 135, Est GFR (MDRD) Non-Af 112, BUN/Creatinine Ratio 9.6 L, Glucose 91, Calcium 8.0 L, Total Bilirubin 6.40 H, Direct Bilirubin 5.20 H, AST 390 H, ALT 939 H, Alkaline Phosphatase 197 H, Total Protein 6.0 L, Albumin 2.2 L, Globulin 3.8 Micro: Microbiology 10/22/22 15:00 Urine, Clean Catch Urine Culture - Preliminary Culture exhibits no growth. Physical Exam Narrative General: Alert, Oriented x3, Cooperative, No apparent distress HEENT: Atraumatic, PERRLA, EOMI, Normocephalic Oral: Moist Mucosa Neck: Supple, No JVD Lungs: Clear to auscultation, Normal air movement, No rhonchi, No wheeze, No rales Cardiovascular: Regular rate, Regular Rhythm, Normal S1, Normal S2, No murmurs Abdomen: Soft, Non Tender, Non-Distended, No Hepato-splenomegaly Extremities: No edema, Capillary Refill Less than 3 Seconds Skin: No rashes, No breakdown Musculoskeletal: No Tenderness to Palpation of Joints or Extremities Neurological: Cranial nerves II-XII grossly intact, Motor Exam 5/5 strength throughout, Sensory exam intact to light touch and pain Psych/Mental Status: Normal Affect, Appropriate Assessment & Plan Assessment/Plan (1) Sepsis: (2) UTI (urinary tract infection): (3) Gastroenteritis: (4) Elevated liver enzymes: PLAN: Plan #Transaminitis on top of hepatitis B, unclear thus far if acute versus chronic -Previous CK within normal limits, did have initial uptrend in AST ALT up to 1913 AST in 2252 ALT with AST today 1624 and ALT 2316. Received N-acetylcysteine. UDS positive for amphetamines and high LDH of 810 this may be culprit. Liver ultrasound with enlarged fatty infiltrated liver with no evidence of cholelithiasis or acute cholecystitis but did have borderline dilation of distal common bile duct without evidence of intraductal stone. Hep B surface antigen and core IgM antibodies both positive with a negative hep B surface antibody but need hepatitis B eAg and eAb as well as PCR DNA quant for further determination if acute or chronic hep B. Both AST and ALT downtrending today #EBV antibody positive -Patient not only has capsid IgG and IgM antibody positive which would typically indicate acute infection but also has nuclear IgG antibody which is not seen in the acute phase of EBV typically indicating past infection. Based on pattern suspect past EBV infection 10/21: There is no sign of obstruction on her MRCP. Her labs are about the same as they were yesterday. She underwent liver biopsy and is pending. I will start Mucomyst today. 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 Focal necrosis possibly secondary to acute or subacute EBV in the setting of reactivated hepatitis B. Her hepatitis B PCR DNA shows 421 million copies of hepatitis B. She has hepatitis e antigen positivity , hepatitis B surface antigen positivity, hepatitis B core antigen positivity. She will need to be started on treatment for hepatitis B. I will look to get her on Entecavir. I believe she was immune intolerant hepatitis B until recently. I am not sure if it was the EBV triggered reactivated hepatitis B. We also waiting for hepatitis D PCR RNA to see if this was not a coinfection or superinfection. I sent labs for acute herpes simplex virus also causing her symptoms but the labs are pending. She had a drastic improvement in her LFTs after undergoing N-acetylcysteine therapy.The Association for Study of the Liver considers intravenous N?acetylcysteine (NAC) a standard of care at admission for all patients with JANY.?2?https://www.ncbi.nlm.nih.gov/pmc/articles/ZMT6785145/#rpj24633-dwv-3950?This suggestion is largely based on findings from several studies in which NAC was found to improve mortality and liver transplantation rate in patients with non?acetaminophen JANY. Charges/Coding Visit Charges Inpatient E&M: 91307 Subs Hosp L3
[2022-10-23 18:24] VITALS: BP 117/72; PULSE 89; RESP 16; TEMP 36.5; O2SAT 99
[2022-10-24 07:08] LABS: HSV 1 IgG < 0.91 index (0.00-0.90)
== END 2022-10-23 18:39 | disposition home or self-care (01) | DRG 442 ==
LOC: ED 21:42 → MS3 22:32
PROVIDERS: Internal Medicine; Internal Medicine Gastroenterology; Nurse Practitioner; Admitting Provider Hospitalist; Emergency Provider Emergency Medicine; PCP Internal Medicine; Visit Provider Family Medicine
DX: B16.9 Acute hepatitis B without delta-agent and without hepatic coma (principal); D68.62 Lupus anticoagulant syndrome; I42.9 Cardiomyopathy, unspecified; B18.1 Chronic viral hepatitis B without delta-agent; K21.9 Gastro-esophageal reflux disease without esophagitis; M79.7 Fibromyalgia; E55.9 Vitamin D deficiency, unspecified; B27.00 Gammaherpesviral mononucleosis without complication; G89.4 Chronic pain syndrome; R73.09 Other abnormal glucose; Z68.21 Body mass index [BMI] 21.0-21.9, adult; Z79.01 Long term (current) use of anticoagulants; Z79.899 Other long term (current) drug therapy; Z86.69 Personal history of other diseases of the nervous system and sense organs; Z86.718 Personal history of other venous thrombosis and embolism; Z87.891 Personal history of nicotine dependence
CPT/HCPCS: 36415; 74181; 76705; 77012; 80048; 80053; 80061; 80076; 81001; 82248; 82306; 83036; 83615; 83690; 85025; 85610; 85730; 86140; 86695; 86696; 87086; 88307; 88313; 97802; 99156; 99283; J7030; A4216; J2405

== ENCOUNTER → 2022-10-19 | Outpatient (CLI) | payer MEDICARE, MEDICAID, SELFPAY ==
[2022-10-19 16:39] LABS: Absolute Lymphocyte Count 1.38 X10^3/uL (0.83-4.51); Absolute Neutrophil Count 3.6 X10^3/uL (2.0-7.7); Basophil# 0.05 X10^3/uL; Basophil% 0.9 % (0-1); Eosinophil# 0.08 X10^3/uL; Eosinophils% 1.4 % (0-5); Hemoglobin 13.5 g/dL (12.0-15.0); Lymphocyte # 1.38 X10^3/ul (0.83-4.51); Lymphocyte % 24.3 % (19-41); Mean Corp Hgb Conc 33.8 g/dL (32-36); Mean Corpuscular Hgb 30.5 pg (27.0-32.0); Mean Corpuscular Volume 90.3 fL (81-99); Mean Platelet Vol. 11.2 fl (6.2-12.0); Monocyte# 0.59 X10^3/uL; Monocyte% 10.4 % (0-10); NRBC Flagged by Analyzer 0 % (0-5); Neutrophil # 3.55 X10^3/uL (2.7-7.7); Neutrophil % 62.5 % (47-70); Platelet Count 236 K/mm3 (150-450); RBC Distribution Width CV 16.6 % (11.6-14.6); RBC Distribution Width SD 53.6 fl (35.1-43.9); Red Blood Count 4.43 M/mm3 (4.2-5.4); White Blood Count 5.7 K/mm3 (4.4-11.0)
[2022-10-19 16:54] LABS: Vitamin D,25 Hydroxy 36.4 ng/mL
[2022-10-19 17:09] LABS: ALB/GLOB Ratio 0.6 RATIO (0.9-2.4); AST(SGOT) 1072 U/L (15-37); Alanine Aminotransfer ALT/SGPT 1982 U/L (13-56); Albumin, Serum 2.9 g/dL (3.2-5.0); Alkaline Phosphatase 211 U/L (45-117); Anion Gap 6 (5-15); BUN 9 mg/dL (7-18); BUN/Creat Ratio 12.6 RATIO (10-20); Calcium,Total 8.8 mg/dL (8.5-10.1); Chloride 106 mmol/L (98-107); Cholesterol 174 mg/dL (200); Creatinine, Serum 0.72 mg/dL (0.55-1.02); EST Glomerular Filtration Rate 95 mL/min (>60); Est Glom Filt Rate - Afr Amer 115 mL/min (>60); Globulin 4.9 g/dL (2.2-4.2); Glucose 101 mg/dL (74-106); High Density Lipoprotein 7 mg/dL; Protein, Total 7.8 g/dL (6.4-8.2); Sodium Level 133 mmol/L (136-145); Triglycerides 314 mg/dL; Very Low Density Lipoprotein 63 mg/dL (5-40)
== END | disposition home or self-care (01) ==
PROVIDERS: PCP Internal Medicine; Referring Provider Internal Medicine; Visit Provider Internal Medicine
DX: R74.8 Abnormal levels of other serum enzymes (principal); I42.9 Cardiomyopathy, unspecified; B19.10 Unspecified viral hepatitis B without hepatic coma; R73.09 Other abnormal glucose; E55.9 Vitamin D deficiency, unspecified
CPT/HCPCS: 36415; 80053; 80061; 82306; 83036; 85025

== ENCOUNTER 2022-10-28 16:44 | Emergency (ER) | payer MEDICARE, MEDICAID, SELFPAY ==
[2022-10-28 16:44] VITALS: BP 137/81; PULSE 90; RESP 16; TEMP 36.3; O2SAT 99; BMI 21.2
[2022-10-28] MEDS: Ketorolac 30 MG/ML Syringe IM (17:09)
--- NOTE | 2022-10-28 17:10 | EDS_ITS ---
HPI <GONZÁLEZ Dixon - Last Filed: 10/28/22 18:45> History of Present Illness Chief Complaint: General Illness Narrative Narrative: Patient is here with complaint of generalized pain. She states about 2 weeks ago she was admitted diagnosed with hepatitis B and remote EBV infection. Since she left she has had the same symptoms of nausea, abdominal discomfort and generalized aches and pains but over last 2 days she feels the pain all over her body has increased. It feels like every bone in my body is breaking. She has pain with walking or getting dressed. No weakness. No rashes. She has swelling in her hands and ankles which is unchanged. She is not taking any pain medication. She is on an antiviral agent for the hepatitis B and Zofran and PPI for symptom control. She also has a history of fibromyalgia and states she normally has 8/10 pain all over but just deals with it. She smokes marijuana for pain control. 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 Colitis Depression DVT (deep venous thrombosis) Elevated liver enzymes Encephalitis Fibromyalgia Heart disease Hepatitis B Hx of blood clots Lupus Lupus anticoagulant disorder Meningitis Narcolepsy Narcolepsy without cataplexy Seizure Sepsis secondary to UTI Home Medications enoxaparin 100 mg/mL subcutaneous syringe (Lovenox) 90 mg (0.9 mL) subcut DAILY #30 mL 10/12/22 [Rx Last Taken Unknown] ondansetron 4 mg disintegrating tablet 4 mg PO Q6H PRN nausea and vomiting #30 tabs 10/19/22 [Rx Last Taken Unknown] pantoprazole 40 mg tablet,delayed release (Protonix) 40 mg PO DAILY #30 tabs 10/19/22 [Rx Last Taken Unknown] entecavir 0.5 mg tablet 0.5 mg PO DAILY #30 tabs 10/23/22 [Rx Last Taken Unknown] hydrocodone-acetaminophen 5-325mg 5mg-325mg 1 tab PO Q6H PRN PRN Pain 2 days #8 TABLETS 10/28/22 [Rx Last Taken Unknown] Allergy/AdvReac Type Severity Reaction Status Date / Time amoxicillin Allergy Mild Nausea Verified 10/19/22 19:40 aspirin Allergy Mild Nausea Verified 10/19/22 19:40 naproxen [From Aleve] Allergy Mild Rash Verified 10/19/22 19:40 azithromycin Allergy Hives Verified 10/19/22 19:40 erythromycin base Allergy Hives Verified 10/19/22 19:40 [Erythromycin Base] latex Allergy Rash Verified 10/19/22 19:40 Sulfa (Sulfonamide Allergy Hives Verified 10/19/22 19:40 Antibiotics) pregabalin [From Lyrica] AdvReac Mild Other Verified 10/19/22 19:40 divalproex sodium AdvReac Rash Verified 10/19/22 19:40 [From Depakote] nitroglycerin AdvReac Vomiting Verified 10/19/22 19:40 Penicillins AdvReac Rash Verified 10/19/22 19:40 sulfonamides Allergy Mild Rash Uncoded 10/19/22 19:40 Family History (Updated 10/19/22 @ 14:[address] Colleen Du MD) Father Alcoholism Cancer, Onset Age: 59 stomach Heart disease Mother Anemia Depression Pulmonary fibrosis POTS (postural orthostatic tachycardia syndrome) Grandfather Cancer Son Depression Seizures Daughter Depression Brother Heart disease Myocardial infarction, Onset Age: 26 POTS (postural orthostatic tachycardia syndrome) Aunt Seizures Surgical History H/O knee surgery History of Social History (Updated 10/19/22 @ 15:[address] Colleen Du MD) household members: children current occupational status: unemployed Smoking Status: Former smoker quit date: 11/04/21 pack-years: 20 Electronic Cigarette Use: not used alcohol intake: current alcohol intake frequency: holidays/special occasions on ly substance use type: former substance user Date of last use: cocaine, crack, meth and acid as a teenager and marijuana do you feel safe at home: Yes ROS <GONZÁLEZ Dixon - Last Filed: 10/28/22 18:45> ROS ED ROS Narrative Constitutional: Negative for fever, chills. CVS: Negative for palpitations, chest pain, syncope. Respiratory: Negative for shortness of breath, cough. GI: Negative for abdominal pain, nausea. Negative for vomiting, diarrhea, constipation, melena, hematochezia. : Negative for dysuria. Neuro: Negative for headache, motor or sensory dysfunction. Skin: Negative for rash. EXAM <GONZÁLEZ Dixon - Last Filed: 10/28/22 18:45> Physical Exam Narrative Exam Narrative: CONST: Patient sitting in no acute distress. EYES: Slight scleral icterus. ENT: Normal inspection, moist mucous membranes. NECK: Normal inspection. RESP: No respiratory distress, CTAB. CVS: Regular rate and rhythm, no murmur, no gallop. ABD: Soft and nontender, no guarding or rebound, nondistended. SKIN: Color normal, no rash, warm, dry, intact. EXTREMITIES: Normal appearance, 1+ pitting edema both ankles. Full ROM of upper and lower extremities, 5/5 strength and normal sensation, 2+ radial and DP pulses. Compartments are soft. No rashes or jaundice noted. NEURO: Oriented x4. PSYCH: Normal affect. Const Vital Signs: 10/28/22 16:44 10/28/22 17:01 Temperature 97.4 F L Temperature Source Temporal Pulse Rate 90 Respiratory Rate 16 Respiratory Effort Normal Non-Labored Respiratory Pattern Normal Blood Pressure 137/81 H Blood Pressure Mean 99 Pulse Ox 99 Oxygen Delivery Method Room Air <Dr. Khang Jeffries MD - Last Filed: 10/28/22 21:40> Physical Exam Const Vital Signs: 10/28/22 16:44 10/28/22 17:01 Temperature 97.4 F L Temperature Source Temporal Pulse Rate 90 Respiratory Rate 16 Respiratory Effort Normal Non-Labored Respiratory Pattern Normal Blood Pressure 137/81 H Blood Pressure Mean 99 Pulse Ox 99 Oxygen Delivery Method Room Air MDM <GONZÁLEZ Dixon - Last Filed: 10/28/22 18:45> [facility] Narrative Medical decision making narrative: Patient with history of recent hepatitis C diagnosis on treatment, EBV presents with generalized body pain. The rest of her symptoms such as nausea and abdominal pain and joint swelling is at baseline. She appears well and nontoxic and is afebrile with normal vital signs. Exam only notable for slight scleral icterus and trace edema of both ankles. She had outpatient labs drawn this morning which show improvement overall? white count is lower, total bili went from 6.4 to 2.4, AST/ALT improved from 390/939 to 319/157. Dr[address] Krueger was made aware that her labs are improving and he recommended pain control and outpatient follow-up. Patient was given a dose of Toradol, Dilaudid, and Phenergan here with improvement. I prescribed a 2-day supply of hydrocodone that she can take until she sees her PCP as scheduled on Sunday afternoon. She was agreeable with this plan and discharged in stable condition. Consults: Dr. Krueger <Dr. Khang Jeffries MD - Last Filed: 10/28/22 21:40> MDM Management Discussion w/another healthcare provider: Resource Conservation Manager (Dr. Krueger, GI) Treatment and Re-Evaluation Comments:: Seen and evaluated independently and in conjunction with physician phlebotomy lab assistant. Agree with notes above unless documented otherwise. Patient having diffuse pain everywhere, body aches like bone pain. Not necessarily arthralgias. This has been going on since she was admitted to the hospital and has been persistent since she was discharged, and worse in the past 2 days but she denies any new symptoms or different symptoms. 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 Exam: Well-appearing no acute distress moving all 4 extremities, all compartments soft and nondistended, she is emotional and anxious but the rest of her exam is benign. Normal vital signs. Plan: Pain control. Reviewed outpatient old labs, she had another set of CBC and hepatic/chemistries done today, everything is continuing to improve and there is nothing newly abnormal. Discussed that she has recently had lots of diagnostics and in my opinion given her normal vital signs and improving liver tests I do not think admitting her to the hospital will yield helpful tests while we are controlling her pain in the next 23 hours, and if there are more test to be done such as rheumatologic testing, this can be safely done as an outpatient and we are happy to write her prescription for something for pain, in the end she was in agreement with this. Discharge Plan Triage Chief Complaint: General Illness ED Midlevel Provider: Marcy Morton ED Provider: Khang Jeffries Dx/Rx/DC Orders Clinical Impression: Generalized pain, History of hepatitis B Instructions: Communicating About Pain Prescriptions: New hydrocodone-acetaminophen 5-325 mg tablet 1 tab PO Q6H PRN PRN (Reason: Pain) 2 Days Qty: 8 0RF No Action pantoprazole [Protonix] 40 mg tablet,delayed release (DR/EC) 40 mg PO DAILY Qty: 30 1RF ondansetron 4 mg tablet,disintegrating 4 mg PO Q6H PRN (Reason: nausea and vomiting) Qty: 30 0RF enoxaparin [Lovenox] 100 mg/mL syringe 90 mg subcut DAILY Qty: 30 2RF entecavir 0.5 mg tablet 0.5 mg PO DAILY Qty: 30 6RF Primary Care Provider: Colleen Du Referrals: Colleen Du MD [Primary Care Provider] - Activity Restrictions/Additional Instructions: I provided enough hydrocodone to get you to your primary care appointment. He can also take ibuprofen every 6 hours. Please follow-up with your doctor for further evaluation of your symptoms. Disposition Disposition: Home, Self Care Discharge Date/Time: 10/28/22 18:53
[2022-10-28] MEDS: HYDROmorphone 1 MG/ML Syringe IM (17:48)
[2022-10-28] MEDS: proMETHazine 25 MG Tablet 12.5 MG PO (17:49)
== END 2022-10-28 18:53 | disposition home or self-care (01) ==
PROVIDERS: Emergency Provider Emergency Medicine; PCP Internal Medicine; Visit Provider Emergency Medicine
DX: R10.84 Generalized abdominal pain (principal); B16.9 Acute hepatitis B without delta-agent and without hepatic coma; Z87.891 Personal history of nicotine dependence
CPT/HCPCS: 36415; 80053; 83615; 85025; 85610; 85652; 86140; 96372; 99282; A4216

== ENCOUNTER → 2022-10-28 | Outpatient (CLI) | payer MEDICARE, MEDICAID, SELFPAY ==
[2022-10-28 11:02] LABS: Absolute Neutrophil Count 3.3 X10^3/uL (2.0-7.7); Basophil# 0.06 X10^3/uL; Basophil% 1.1 % (0-1); Eosinophil# 0.12 X10^3/uL; Eosinophils% 2.3 % (0-5); Hematocrit 35.2 % (37-47); Hemoglobin 11.5 g/dL (12.0-15.0); Lymphocyte % 24.7 % (19-41); Mean Corp Hgb Conc 32.7 g/dL (32-36); Mean Corpuscular Hgb 31.4 pg (27.0-32.0); Mean Corpuscular Volume 96.2 fL (81-99); Mean Platelet Vol. 10.4 fl (6.2-12.0); Monocyte# 0.46 X10^3/uL; Monocyte% 8.7 % (0-10); NRBC Flagged by Analyzer 0 % (0-5); Neutrophil # 3.29 X10^3/uL (2.7-7.7); Neutrophil % 62.4 % (47-70); Platelet Count 259 K/mm3 (150-450); RBC Distribution Width CV 18.6 % (11.6-14.6); RBC Distribution Width SD 64.7 fl (35.1-43.9); Red Blood Count 3.66 M/mm3 (4.2-5.4); White Blood Count 5.3 K/mm3 (4.4-11.0)
[2022-10-28 11:26] LABS: International Normalized Ratio 0.9; Prothrombin Time (Protime)PT. 12.4 SECONDS (11.7-14.9)
[2022-10-28 11:30] LABS: Erythrocyte Sedimentation Rate 40 mm/hr (0-30)
[2022-10-28 11:48] LABS: ALB/GLOB Ratio 0.7 RATIO (0.9-2.4); AST(SGOT) 126 U/L (15-37); Alanine Aminotransfer ALT/SGPT 319 U/L (13-56); Albumin, Serum 3.1 g/dL (3.2-5.0); Alkaline Phosphatase 157 U/L (45-117); Anion Gap 6 (5-15); BUN 9 mg/dL (7-18); BUN/Creat Ratio 14.3 RATIO (10-20); CRP < 2.90 mg/L (0.0-3.0); Calcium,Total 8.5 mg/dL (8.5-10.1); Chloride 109 mmol/L (98-107); Creatinine, Serum 0.63 mg/dL (0.55-1.02); EST Glomerular Filtration Rate 110 mL/min (>60); Est Glom Filt Rate - Afr Amer 134 mL/min (>60); Globulin 4.6 g/dL (2.2-4.2); Glucose 92 mg/dL (74-106); LDH 231 U/L (84-246); Potassium 3.8 mmol/L (3.5-5.1); Protein, Total 7.7 g/dL (6.4-8.2); Sodium Level 139 mmol/L (136-145)
== END | disposition home or self-care (01) ==
PROVIDERS: PCP Internal Medicine; Referring Provider Internal Medicine Gastroenterology; Visit Provider Internal Medicine Gastroenterology
DX: B16.9 Acute hepatitis B without delta-agent and without hepatic coma (principal)
CPT/HCPCS: 36415; 80053; 83615; 85025; 85610; 85652; 86140

== ENCOUNTER 2022-11-01 13:57 | Emergency (ER) | payer MEDICARE, MEDICAID, SELFPAY ==
[2022-11-01 13:58] VITALS: BP 125/68; PULSE 88; RESP 18; TEMP 35.3; O2SAT 98; BMI 21.9
--- NOTE | 2022-11-01 14:45 | EX.ED.DYSGE1 ---
HPI History of Present Illness Chief Complaint: Shortness of Breath Detail of Chief Complaint: Swelling of her extremities not shortness of breath Informant: patient Onset/Context/Timing Onset: Days Context: Gradual Onset Timing: Continuous Quality: Swelling of her extremities Location: Generalized Current Severity: Moderate Maximum Severity: Moderate Worsened by: Unknown per patient Relieved by: Nothing per patient Associated Symptoms Associated Symptoms: Patient appears jaundiced and has dark urine and reports decreased urine ou Narrative Narrative: Patient is a 42-year-old woman who was recently admitted to the hospital. Discharge diagnosis was hepatitis B acute, lupus anticoagulant disorder, history of blood clots, personal history of other venous thrombus and embolus, cannabis abuse with cannabis induced disorder. Patient states she has not had an alcoholic beverage in 1.5 months. Patient did have a liver biopsy during her most recent hospital visit and admission. Patient is upset that she has to continue to return because her symptoms recur. Patient denies fever, chills night sweats. Patient denies headache, visual, ocular auditory symptoms. Patient denies chest pain of any type. Patient denies dyspnea or dyspnea on exertion. She denies orthopnea or PND. She presently denies abdominal pain. She denies vomiting or diarrhea. She reports decreased urine output with dark urine. She denies discomfort with urination or urgency. She states the swelling is recurrent. She states she has seen Dr. Krueger. She was upset because she was discharged and states her total bili was elevated. Review of records indicates that there was a significant decrease on repeat hepatic panel. Patient states she has not used IV drugs recently. She does have history of amphetamine use. 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 Colitis Depression DVT (deep venous thrombosis) Elevated liver enzymes Encephalitis Fibromyalgia Heart disease Hepatitis B Hx of blood clots Lupus Lupus anticoagulant disorder Meningitis Narcolepsy Narcolepsy without cataplexy Seizure Sepsis secondary to UTI Home Medications enoxaparin 100 mg/mL subcutaneous syringe (Lovenox) 90 mg (0.9 mL) subcut DAILY #30 mL 10/12/22 [Rx Last Taken Unknown] ondansetron 4 mg disintegrating tablet 4 mg PO Q6H PRN nausea and vomiting #30 tabs 10/19/22 [Rx Last Taken Unknown] pantoprazole 40 mg tablet,delayed release (Protonix) 40 mg PO DAILY #30 tabs 10/19/22 [Rx Last Taken Unknown] entecavir 0.5 mg tablet 0.5 mg PO DAILY #30 tabs 10/23/22 [Rx Last Taken Unknown] hydrocodone-acetaminophen 5-325mg 5mg-325mg 1 tab PO Q6H PRN PRN Pain 2 days #8 TABLETS 10/28/22 [Rx Last Taken Unknown] amitriptyline 10 mg tablet 10 mg PO QHS #30 tabs 10/30/22 [Rx Last Taken Unknown] compress.stocking,knee,reg,med #2 ea 10/30/22 [Rx Last Taken Unknown] hydroxyzine HCl 25 mg tablet 25 mg PO BID PRN anxiety #20 tabs 10/30/22 [Rx Last Taken Unknown] Allergy/AdvReac Type Severity Reaction Status Date / Time amoxicillin Allergy Mild Nausea Verified 10/30/22 15:04 aspirin Allergy Mild Nausea Verified 10/30/22 15:04 naproxen [From Aleve] Allergy Mild Rash Verified 10/30/22 15:04 azithromycin Allergy Hives Verified 10/30/22 15:04 erythromycin base Allergy Hives Verified 10/30/22 15:04 [Erythromycin Base] latex Allergy Rash Verified 10/30/22 15:04 Sulfa (Sulfonamide Allergy Hives Verified 10/30/22 15:04 Antibiotics) pregabalin [From Lyrica] AdvReac Mild Other Verified 10/30/22 15:04 divalproex sodium AdvReac Rash Verified 10/30/22 15:04 [From Depakote] nitroglycerin AdvReac Vomiting Verified 10/30/22 15:04 Penicillins AdvReac Rash Verified 10/30/22 15:04 sulfonamides Allergy Mild Rash Uncoded 10/30/22 15:04 Family History Father Alcoholism Cancer, Onset Age: 59 stomach Heart disease Mother Anemia Depression Pulmonary fibrosis POTS (postural orthostatic tachycardia syndrome) Grandfather Cancer Son Depression Seizures Daughter Depression Brother Heart disease Myocardial infarction, Onset Age: 26 POTS (postural orthostatic tachycardia syndrome) Aunt Seizures Surgical History H/O knee surgery History of Social History household members: children current occupational status: unemployed Smoking Status: Former smoker quit date: 11/04/21 pack-years: 20 Electronic Cigarette Use: not used alcohol intake: current alcohol intake frequency: holidays/special occasions only substance use type: former substance user Date of last use: cocaine, crack, meth and acid as a teenager and marijuana do you feel safe at home: Yes ROS ROS ED Constitutional Constitutional ED: Denies chills, fever(s), subjective, sweats or weight loss Eyes Eyes: Denies blurry vision, change in vision or diplopia ENT ENT ED: Denies ear pain, rhinorrhea or sore throat Cardiovascular Cardiovascular: Denies chest pain, orthopnea, palpitations, paroxysmal nocturnal dyspnea or racing heartbeat Respiratory/Chest Respiratory/Chest: Denies cough, dyspnea, dyspnea on exertion, orthopnea or paroxysmal nocturnal dyspnea Gastrointestinal Gastrointestinal: Reports nausea; Denies abdominal pain, constipation, diarrhea, melena or vomiting Genitourinary Genitourinary ED: Denies dysuria, hematuria or urinary frequency Musculoskeletal Musculoskeletal: Denies arthralgias, back pain, myalgias or neck pain Integumentary Denies rash Neurologic Neurologic: Reports weakness; Denies headache(s) or paresthesias Psychiatric Psychiatric: Reports depression; Denies anxiety or suicidal ideation Endocrine Endocrinology: Denies cold intolerance or heat intolerance Hematologic/Lymphatic Hematologic/Lymphatic: Reports systems reviewed and no addt'l complaints, except as documented; Denies easy bleeding or easy bruising EXAM Physical Exam Const Vital Signs: 11/01/22 13:58 11/01/22 15:34 Temperature 95.5 F L Temperature Source Temporal Pulse Rate 88 77 Respiratory Rate 18 21 H Blood Pressure 125/68 H 109/75 Blood Pressure Mean 87 86 Pulse Ox 98 99 Oxygen Delivery Method Room Air Positive well nourished and well developed Constitutional Narrative: Patient has a depressed affect and is crying. She appears jaundiced. General Appearance ED: well developed; Negative for cyanotic, diaphoretic or pallor HEENT Reports moist mucous membranes HEENT Narrative: Head is atraumatic normocephalic. Ears normal. TMs normal. Nares patent. Posterior pharynx is unremarkable. Uvula is midline. Eyes PERRL and EOMs intact bilaterally General Eye ED: Yes scleral icterus; Negative for pale conjunctiva Neck no lymphadenopathy, supple and no JVD Chest Wall inspection of chest normal and palpation of chest normal Resp normal respiratory effort and clear to auscultation bilaterally Cardio regular rate, regular rhythm, S1 normal heart sound, S2 normal heart sound and no murmurs GI normal to inspection, nondistended, normoactive bowel sounds, non-tender, non-distended and no masses; Negative for hepatosplenomegaly Back/Spine no CVA tenderness Thoracic Spine / Upper Back: Negative for thoracic spinal tenderness Lumbar Spine / Lower Back: Negative for lumbar spinal tenderness Extremity Negative for normal to inspection Extremity Narrative: Upper and lower extremities General Extremety ED: Yes edema General Extremity: edema Neuro oriented x3, CN's II-XII intact bilaterally and no sensory deficits noted Sensorium / Orientation: alert Psych Mood & Affect: depressed and tearful Skin No no rashes or lesions noted and no wounds Skin Narrative: Patient has a blanching erythematous rash that is generalized and patchy. General Skin Exam: elasticity normal and jaundice; Negative for pallor MDM MDM MDM Narrative Medical decision making narrative: Patient's lymphedema may be due to liver disease, low albumin, proteinuria, renal disease, she also has history of cardiomyopathy. She has no symptoms of orthopnea or PND and there are no rales noted on auscultation. She is scheduled for an outpatient echo. Because patient has jaundice will obtain hepatic profile to assess total bilirubin, AST ALT as well as total protein and albumin. BMP to assess renal function as well as glucose. PT/INR to assess liver function. UA to assess for proteinuria and hematuria. Prior records were reviewed and summarized under the HPI portion of the chart. History & Record Review Additional record(s) reviewed:: Prior inpatient record, Prior outpatient record and Prior labs Lab Data Attestation: I reviewed the patient's lab results. Lab results narrative: Patient has chronic anemia and higher. Bilirubin has improved from prior results. Albumin is slightly decreased at 3.0. Labs: Laboratory Results - last 24 hr 11/01/22 11/01/22 15:00 15:31 WBC 5.7 RBC 3.50 L Hgb 11.1 L Hct 33.2 L MCV 94.9 MCH 31.7 MCHC 33.4 RDW Std Deviation 61.3 H RDW Coeff of Paulo 18.0 H Plt Count 221 MPV 9.9 Immature Gran % (Auto) 0.500 Neut % (Auto) 54.1 Lymph % (Auto) 32.7 [place] % (Auto) 9.7 Eos % (Auto) 2.3 Baso % (Auto) 0.7 Absolute Neuts (auto) 3.1 Absolute Lymphs (auto) 1.86 Nucleated RBC % 0 Differential Comment SCANNED PT 13.3 INR 1.0 Sodium 139 Potassium 4.0 Chloride 110 H Carbon Dioxide 25.0 Anion Gap 4 L BUN 6 L Creatinine 0.60 Estim Creat Clear Calc 101.04 Est GFR (MDRD) Af Amer 140 Est GFR (MDRD) Non-Af 115 BUN/Creatinine Ratio 9.9 L Glucose 89 Calcium 8.4 L Total Bilirubin 1.90 H Direct Bilirubin 1.37 H AST 220 H ALT 245 H Alkaline Phosphatase 129 H Total Protein 7.0 Albumin 3.0 L Globulin 4.0 Urine Color Yellow Urine Clarity Sl. Cloudy Urine pH 5.0 Ur Specific [place] 1.025 Urine Protein 15 H Urine Glucose (UA) Normal Urine Ketones 5 H Urine Occult Blood 10 H Urine Nitrite Positive H Urine Bilirubin 1 H Urine Urobilinogen 4 H Ur Leukocyte Esterase 25 H Urine RBC 0 SEEN Urine WBC 0-5 SEEN Ur Squamous Epith Cells 0-5 SEEN Urine Bacteria 0 SEEN Urine Mucus 0 SEEN Management Discussion w/another healthcare provider: lead worker of housekeeping and laundry/Case management (He was given multiple resources for help and depression.) Treatment and Re-Evaluation :: Patient was informed that her laboratory studies have improved. She was informed she feels poorly because she has problems with her liver. She was told this is not a reaction to the medicine that she was placed on by Dr. Krueger. Discharge Plan Triage Chief Complaint: Shortness of Breath Other Complaint: Edema ED Provider: Nolan Daley Dx/Rx/DC Orders Clinical Impression: Jaundice, Depressive disorder, Myalgia, Generalized pain, Hepatitis B Instructions: ED Hepatitis, Viral (Type B), ED Myalgias Prescriptions: No Action pantoprazole [Protonix] 40 mg tablet,delayed release (DR/EC) 40 mg PO DAILY Qty: 30 1RF ondansetron 4 mg tablet,disintegrating 4 mg PO Q6H PRN (Reason: nausea and vomiting) Qty: 30 0RF hydroxyzine HCl 25 mg tablet 25 mg PO BID PRN (Reason: anxiety) Qty: 20 0RF (DME) compress.stocking,knee,reg,med Misc See Rx Instructions .Route Qty: 2 0RF Rx Instructions: As directed amitriptyline 10 mg tablet 10 mg PO QHS Qty: 30 1RF enoxaparin [Lovenox] 100 mg/mL syringe 90 mg subcut DAILY Qty: 30 2RF hydrocodone-acetaminophen 5-325 mg tablet 1 tab PO Q6H PRN PRN (Reason: Pain) 2 Days Qty: 8 0RF entecavir 0.5 mg tablet 0.5 mg PO DAILY Qty: 30 6RF Primary Care Provider: Colleen Du Referrals: Colleen Du MD [Primary Care Provider] - Friend,DO Bro [Med Staff - Active Staff] - 1-2 Weeks Disposition Disposition: Home, Self Care
[2022-11-01 15:14] LABS: Absolute Lymphocyte Count 1.86 X10^3/uL (0.83-4.51); Absolute Neutrophil Count 3.1 X10^3/uL (2.0-7.7); Basophil# 0.04 X10^3/uL; Basophil% 0.7 % (0-1); Eosinophil# 0.13 X10^3/uL; Eosinophils% 2.3 % (0-5); Hematocrit 33.2 % (37-47); Hemoglobin 11.1 g/dL (12.0-15.0); Lymphocyte # 1.86 X10^3/ul (0.83-4.51); Lymphocyte % 32.7 % (19-41); Mean Corp Hgb Conc 33.4 g/dL (32-36); Mean Corpuscular Hgb 31.7 pg (27.0-32.0); Mean Corpuscular Volume 94.9 fL (81-99); Mean Platelet Vol. 9.9 fl (6.2-12.0); Monocyte# 0.55 X10^3/uL; Monocyte% 9.7 % (0-10); NRBC Flagged by Analyzer 0 % (0-5); Neutrophil # 3.08 X10^3/uL (2.7-7.7); Neutrophil % 54.1 % (47-70); POSITIVE MORPHOLOGY YES; Platelet Count 221 K/mm3 (150-450); RBC Distribution Width SD 61.3 fl (35.1-43.9); White Blood Count 5.7 K/mm3 (4.4-11.0)
[2022-11-01 15:16] LABS: Differential Indicated SCAN CRITERIA MET
[2022-11-01 15:27] LABS: Prothrombin Time (Protime)PT. 13.3 SECONDS (11.7-14.9)
[2022-11-01 15:28] LABS: AST(SGOT) 220 U/L (15-37); Alanine Aminotransfer ALT/SGPT 245 U/L (13-56); Alkaline Phosphatase 129 U/L (45-117); Anion Gap 4 (5-15); BUN 6 mg/dL (7-18); BUN/Creat Ratio 9.9 RATIO (10-20); Bilirubin, Direct 1.37 mg/dL (0.00-0.30); Calcium,Total 8.4 mg/dL (8.5-10.1); Chloride 110 mmol/L (98-107); EST Glomerular Filtration Rate 115 mL/min (>60); Est Glom Filt Rate - Afr Amer 140 mL/min (>60); Estimated Creatinine Clearance 101.04 ml/min; Glucose 89 mg/dL (74-106); Sodium Level 139 mmol/L (136-145)
[2022-11-01 15:34] VITALS: BP 109/75; PULSE 77; RESP 21; O2SAT 99
[2022-11-01 15:37] LABS: Bacteria 0 SEEN /hpf (None Seen); Mucous, Urine 0 SEEN /hpf (<or=2+); Red Blood Cells-Urine 0 SEEN /hpf (0-5)
[2022-11-01 15:41] LABS: Color, Urine Yellow (Yellow); Glucose, Dipstick Normal (Normal); Ketone-Dipstick 5 mg/dl (Negative); Leukocyte Esterase-Dipstick 25 /ul (Negative); Nitrite-Dipstick Positive (Negative); Occult Blood-Urine 10 /ul (Negative); Protein-Dipstick 15 mg/dl (Negative); Specific Gravity, Urine 1.025 (1.002-1.030); Urine Clarity Sl. Cloudy (Clear); Urine Urobilinogen 4 mg/dl (Normal)
[2022-11-01 15:42] LABS: Urine Bilirubin Dipstick 1 mg/dL (Negative)
[2022-11-01 15:44] LABS: Differential Comment SCANNED
[2022-11-01 16:21] LABS: Squamous Epithelial Cells - UA 0-5 SEEN /hpf (5-10); White Blood Cells 0-5 SEEN /hpf (0-5)
--- NOTE | 2022-11-01 17:19 | ED.RN ---
THIS PORTABLE MACHINE SANDER WAS ASKED TO SPEAK TO PATIENT WHO WAS REQUESTING A PATIENT EMPLOYEE DEVELOPMENT SPECIALIST. PT STATES THIS IS THE WORST EXPERIENCE SHE HAS EVER HAD HERE. HER SWELLING WAS NOT TREATED AND SHE IS IN PAIN. THIS RN SPOKE WITH DR. DALTON. DR. DALTON STATES PT WAS COOPERATIVE WITH NO QUESTIONS WHEN ASKED. PT GIVEN PATIENT ADVOCATES CARD.
--- NOTE | 2022-11-01 17:28 | CM.ED ---
Social Work SW introduced self and role to patient. Patient tearful and reports she has been feeling terrible. Pt is struggling with several chronic conditions. Pt is frustrated that no one is doing anything. SW provided emotional support. SW gave patient local mental health resources and anxiety/depression coping skills handouts. Elly Donnelly ADVERTISING EDITOR, CHANNEL INSTALLER
[2022-11-01 17:30] VITALS: PULSE 72
--- NOTE | 2022-11-01 17:32 | ED.RN ---
Patient upset with today's visit. Charge Nurse in room and gave patient Patient advocacy card.
[2022-11-02 13:03] LABS: BNP,B-Type NATRIURETIC PEPTIDE 40.3 pg/mL (0-100)
== END 2022-11-01 17:33 | disposition home or self-care (01) ==
PROVIDERS: Emergency Provider Emergency Medicine; PCP Internal Medicine; Visit Provider Emergency Medicine
DX: B16.9 Acute hepatitis B without delta-agent and without hepatic coma (principal); R17 Unspecified jaundice; M79.10 Myalgia, unspecified site; F32.A Depression, unspecified; Z86.711 Personal history of pulmonary embolism; Z86.718 Personal history of other venous thrombosis and embolism; Z87.891 Personal history of nicotine dependence
CPT/HCPCS: 80048; 80076; 81001; 83880; 85025; 85610; 99284; A4216

== ENCOUNTER → 2022-11-22 | Outpatient (CLI) | payer MEDICARE, MEDICAID, SELFPAY ==
[2022-11-22 13:38] LABS: Mucous, Urine 0 SEEN /hpf (<or=2+); Red Blood Cells-Urine 0 SEEN /hpf (0-5)
[2022-11-22 14:45] LABS: Erythrocyte Sedimentation Rate 48 mm/hr (0-30)
[2022-11-22 14:46] LABS: International Normalized Ratio 1.1; Prothrombin Time (Protime)PT. 13.8 SECONDS (11.7-14.9)
[2022-11-22 14:54] LABS: Absolute Lymphocyte Count 1.55 X10^3/uL (0.83-4.51); Absolute Neutrophil Count 2.7 X10^3/uL (2.0-7.7); Basophil# 0.04 X10^3/uL; Basophil% 0.8 % (0-1); Eosinophil# 0.17 X10^3/uL; Eosinophils% 3.5 % (0-5); Hematocrit 39.5 % (37-47); Hemoglobin 12.9 g/dL (12.0-15.0); Lymphocyte # 1.55 X10^3/ul (0.83-4.51); Lymphocyte % 31.7 % (19-41); Mean Corp Hgb Conc 32.7 g/dL (32-36); Mean Corpuscular Hgb 31.8 pg (27.0-32.0); Mean Corpuscular Volume 97.3 fL (81-99); Mean Platelet Vol. 11.5 fl (6.2-12.0); Monocyte# 0.43 X10^3/uL; Monocyte% 8.8 % (0-10); NRBC Flagged by Analyzer 0 % (0-5); Neutrophil # 2.68 X10^3/uL (2.7-7.7); Neutrophil % 54.8 % (47-70); Platelet Count 263 K/mm3 (150-450); RBC Distribution Width CV 17.2 % (11.6-14.6); Red Blood Count 4.06 M/mm3 (4.2-5.4); White Blood Count 4.9 K/mm3 (4.4-11.0)
[2022-11-22 15:00] LABS: ALB/GLOB Ratio 0.7 RATIO (0.9-2.4); AST(SGOT) 631 U/L (15-37); Alanine Aminotransfer ALT/SGPT 619 U/L (13-56); Alkaline Phosphatase 205 U/L (45-117); Anion Gap 7 (5-15); BUN 5 mg/dL (7-18); BUN/Creat Ratio 7.2 RATIO (10-20); CRP < 2.90 mg/L (0.0-3.0); Calcium,Total 8.4 mg/dL (8.5-10.1); Chloride 108 mmol/L (98-107); Creatinine, Serum 0.69 mg/dL (0.55-1.02); EST Glomerular Filtration Rate 99 mL/min (>60); Est Glom Filt Rate - Afr Amer 119 mL/min (>60); Globulin 4.6 g/dL (2.2-4.2); Glucose 79 mg/dL (74-106); LDH 257 U/L (84-246); Protein, Total 7.6 g/dL (6.4-8.2); Sodium Level 136 mmol/L (136-145)
[2022-11-22 15:47] LABS: Color, Urine Yellow (Yellow); Glucose, Dipstick Normal (Normal); Ketone-Dipstick Negative (Negative); Leukocyte Esterase-Dipstick 100 /ul (Negative); Nitrite-Dipstick Negative (Negative); Occult Blood-Urine Negative /ul (Negative); Protein-Dipstick Negative (Negative); Urine Clarity Sl. Cloudy (Clear); Urine Urobilinogen 4 mg/dl (Normal)
[2022-11-22 16:23] LABS: Urine Bilirubin Dipstick 1 mg/dL (Negative)
[2022-11-22 16:24] LABS: Squamous Epithelial Cells - UA 10-25 SEEN /hpf (5-10); White Blood Cells 5-10 SEEN /hpf (0-5)
[2022-11-22 16:25] LABS: Bacteria 1+ /hpf (None Seen)
== END | disposition home or self-care (01) ==
PROVIDERS: PCP Internal Medicine; Referring Provider Internal Medicine Gastroenterology; Visit Provider Internal Medicine Gastroenterology
DX: N39.0 Urinary tract infection, site not specified (principal); B16.9 Acute hepatitis B without delta-agent and without hepatic coma
CPT/HCPCS: 36415; 80053; 81001; 83615; 85025; 85610; 85652; 86140; 87086; 87088

== ENCOUNTER → 2022-12-07 | Outpatient (CLI) | payer MEDICARE, MEDICAID, SELFPAY ==
[2022-12-07 12:34] LABS: Erythrocyte Sedimentation Rate 34 mm/hr (0-30)
[2022-12-07 12:37] LABS: Absolute Lymphocyte Count 1.42 X10^3/uL (0.83-4.51); Absolute Neutrophil Count 2.9 X10^3/uL (2.0-7.7); Basophil# 0.04 X10^3/uL; Basophil% 0.8 % (0-1); Eosinophil# 0.15 X10^3/uL; Eosinophils% 3.1 % (0-5); Hematocrit 38.5 % (37-47); Hemoglobin 12.9 g/dL (12.0-15.0); Lymphocyte # 1.42 X10^3/ul (0.83-4.51); Mean Corp Hgb Conc 33.5 g/dL (32-36); Mean Corpuscular Volume 95.5 fL (81-99); Mean Platelet Vol. 11.1 fl (6.2-12.0); Monocyte# 0.41 X10^3/uL; Monocyte% 8.4 % (0-10); NRBC Flagged by Analyzer 0 % (0-5); Neutrophil # 2.85 X10^3/uL (2.7-7.7); Neutrophil % 58.3 % (47-70); Platelet Count 247 K/mm3 (150-450); RBC Distribution Width CV 14.2 % (11.6-14.6); RBC Distribution Width SD 49.7 fl (35.1-43.9); Red Blood Count 4.03 M/mm3 (4.2-5.4); White Blood Count 4.9 K/mm3 (4.4-11.0)
[2022-12-07 12:38] LABS: Prothrombin Time (Protime)PT. 12.9 SECONDS (11.7-14.9)
[2022-12-07 13:12] LABS: ALB/GLOB Ratio 0.7 RATIO (0.9-2.4); AST(SGOT) 208 U/L (15-37); Alanine Aminotransfer ALT/SGPT 233 U/L (13-56); Albumin, Serum 3.3 g/dL (3.2-5.0); Alkaline Phosphatase 113 U/L (45-117); Anion Gap 6 (5-15); BUN 10 mg/dL (7-18); BUN/Creat Ratio 14.6 RATIO (10-20); CRP < 2.90 mg/L (0.0-3.0); Calcium,Total 8.7 mg/dL (8.5-10.1); Chloride 105 mmol/L (98-107); Creatinine, Serum 0.68 mg/dL (0.55-1.02); EST Glomerular Filtration Rate 100 mL/min (>60); Est Glom Filt Rate - Afr Amer 121 mL/min (>60); Globulin 4.6 g/dL (2.2-4.2); Glucose 95 mg/dL (74-106); LDH 212 U/L (84-246); Potassium 4.2 mmol/L (3.5-5.1); Protein, Total 7.9 g/dL (6.4-8.2); Sodium Level 136 mmol/L (136-145)
== END | disposition home or self-care (01) ==
LOC: LAB 10:51
PROVIDERS: PCP Internal Medicine; Referring Provider Internal Medicine Gastroenterology; Visit Provider Internal Medicine Gastroenterology
DX: B16.9 Acute hepatitis B without delta-agent and without hepatic coma (principal)
CPT/HCPCS: 36415; 80053; 83615; 85025; 85610; 85652; 86140

== ENCOUNTER 2023-03-11 13:06 | Emergency (ER) | payer MEDICARE, MEDICAID, SELFPAY ==
[2023-03-11 13:09] VITALS: BP 118/78; PULSE 87; RESP 18; TEMP 37.1; O2SAT 99; BMI 24.3
[2023-03-11 13:33] LABS: Absolute Lymphocyte Count 1.86 X10^3/uL (0.83-4.51); Absolute Neutrophil Count 3.5 X10^3/uL (2.0-7.7); Basophil# 0.03 X10^3/uL; Basophil% 0.5 % (0-1); Eosinophil# 0.05 X10^3/uL; Eosinophils% 0.8 % (0-5); Hematocrit 41.7 % (37-47); Hemoglobin 13.9 g/dL (12.0-15.0); Lymphocyte # 1.86 X10^3/ul (0.83-4.51); Lymphocyte % 31.5 % (19-41); Mean Corp Hgb Conc 33.3 g/dL (32-36); Mean Corpuscular Hgb 30.8 pg (27.0-32.0); Mean Corpuscular Volume 92.5 fL (81-99); Mean Platelet Vol. 9.4 fl (6.2-12.0); Monocyte# 0.43 X10^3/uL; Monocyte% 7.3 % (0-10); NRBC Flagged by Analyzer 0 % (0-5); Neutrophil # 3.51 X10^3/uL (2.7-7.7); Neutrophil % 59.6 % (47-70); Platelet Count 224 K/mm3 (150-450); RBC Distribution Width CV 14.5 % (11.6-14.6); RBC Distribution Width SD 48.9 fl (35.1-43.9); Red Blood Count 4.51 M/mm3 (4.2-5.4); White Blood Count 5.9 K/mm3 (4.4-11.0)
[2023-03-11] MEDS: 0.9% Normal Saline (1000mL) 1,000 ML 999 ML IV (13:44)
[2023-03-11] MEDS: Morphine 4 MG/ML Syringe IV (13:45)
[2023-03-11] MEDS: Ondansetron 4 MG/2 ML Vial IV (13:45)
--- NOTE | 2023-03-11 13:49 | CT_ITS ---
STUDY: CT Abdomen And Pelvis W/ Contrast Injection 03/11/2023 2:24 PM REASON FOR EXAM: Female, 42 years old. ABDOMINAL PAIN LLQ abdominal pain TECHNIQUE: Transaxial images were obtained without oral contrast, and with IV 100mL Isovue-370 intravenous contrast. Individualized dose optimization techniques were used for this CT. COMPARISON: None FINDINGS: The visualized lung bases are unremarkable. The visualized portions of the heart are within normal limits. There is hepatomegaly with diffuse hepatic enlargement. Unremarkable gallbladder and extrahepatic biliary system. Unremarkable spleen. Unremarkable pancreas. Unremarkable bilateral adrenal glands. No acute findings of the right kidney. No acute findings of the left kidney. Unremarkable visualized stomach. Unremarkable small intestine. Unremarkable colon. The appendix is visualized and appears unremarkable. There are no acute findings of the abdominal aorta. Unremarkable inferior vena cava. Subcentimeter mesenteric lymph nodes. Unremarkable urinary bladder. Normal visualized uterus. Minimal inflammatory stranding and subcutaneous air noted in the left subcutaneous fat anteriorly. This can suggest insulin injection sites. There is an umbilical hernia containing fat. There are bilateral pars articularis defects at L5-S1. There is a Grade 1 anterolisthesis of L5 on S1. CT/Abdomen/Pelvis W IV Cont ONLY IMPRESSION: (NOT LISTED IN ORDER OF SIGNIFICANCE) There are no acute findings. There is hepatomegaly with diffuse hepatic enlargement. Other findings as above. Electronically Signed: Hao Jones MD at 14:27 EST ,
[2023-03-11 13:51] LABS: ALB/GLOB Ratio 0.9 RATIO (0.9-2.4); AST(SGOT) 19 U/L (15-37); Alanine Aminotransfer ALT/SGPT 23 U/L (13-56); Albumin, Serum 3.8 g/dL (3.2-5.0); Alkaline Phosphatase 47 U/L (45-117); Anion Gap 6 (5-15); BUN 6 mg/dL (7-18); BUN/Creat Ratio 7.2 RATIO (10-20); Calcium,Total 9.5 mg/dL (8.5-10.1); Chloride 103 mmol/L (98-107); Creatinine, Serum 0.84 mg/dL (0.55-1.02); EST Glomerular Filtration Rate 79 mL/min (>60); Est Glom Filt Rate - Afr Amer 96 mL/min (>60); Estimated Creatinine Clearance 72.17 ml/min; Globulin 4.2 g/dL (2.2-4.2); Glucose 88 mg/dL (74-106); Lipase 16 U/L (13-75); Potassium 3.7 mmol/L (3.5-5.1); Sodium Level 138 mmol/L (136-145)
--- NOTE | 2023-03-11 14:10 | ED.VIS.GI ---
HPI HPI - GI History of Present Illness Chief Complaint: Abd Pain Narrative Narrative: 42-year-old female with history of chronic constipation, hepatitis B, lupus anticoagulant disorder presenting with abdominal pain. She states she had it in the upper left quadrant and the epigastrium previously but now it is in the left lower quadrant. She states that a low-grade fever of 101 Fahrenheit. Patient states that symptoms have been ongoing for 2 weeks. Denies any urinary or vaginal complaints. States he has constipation but no diarrhea. Patient states she spoke with Dr. Krueger's office today and was sent into the ED for evaluation. Patient denies any black or bloody stools. 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 Colitis Depression DVT (deep venous thrombosis) Elevated liver enzymes Encephalitis Fibromyalgia Heart disease Hepatitis B Hx of blood clots Lupus Lupus anticoagulant disorder Meningitis Narcolepsy Narcolepsy without cataplexy Seizure Sepsis secondary to UTI Home Medications ondansetron 4 mg disintegrating tablet 4 mg PO Q6H PRN nausea and vomiting #30 tabs 10/19/22 [Rx Last Taken Unknown] entecavir 0.5 mg tablet 0.5 mg PO DAILY #30 tabs 10/23/22 [Rx Last Taken Unknown] compress.stocking,knee,reg,med #2 ea 10/30/22 [Rx Last Taken Unknown] hydroxyzine HCl 25 mg tablet 25 mg PO BID PRN anxiety #20 tabs 01/01/23 [Rx Last Taken Unknown] linaclotide 145 mcg capsule (Linzess) 145 mcg PO QAM #30 caps 01/19/23 [Rx Last Taken Unknown] pantoprazole 40 mg tablet,delayed release (Protonix) 40 mg PO DAILY #30 tabs 01/19/23 [Rx Last Taken Unknown] enoxaparin 100 mg/mL subcutaneous syringe (Lovenox) 90 mg (0.9 mL) subcut DAILY #30 mL 02/05/23 [Rx Last Taken Unknown] dicyclomine 20 mg tablet 20 mg PO TID #30 tabs 03/11/23 [Rx Last Taken Unknown] ondansetron HCl 4 mg tablet 4 mg PO DAILY PRN nausea and vomiting #14 tabs 03/11/23 [Rx Last Taken Unknown] Allergy/AdvReac Type Severity Reaction Status Date / Time amoxicillin Allergy Mild Nausea Verified 03/11/23 13:09 aspirin Allergy Mild Nausea Verified 03/11/23 13:09 naproxen [From Aleve] Allergy Mild Rash Verified 03/11/23 13:09 azithromycin Allergy Hives Verified 03/11/23 13:09 erythromycin base Allergy Hives Verified 03/11/23 13:09 [Erythromycin Base] latex Allergy Rash Verified 03/11/23 13:09 Sulfa (Sulfonamide Allergy Hives Verified 03/11/23 13:09 Antibiotics) pregabalin [From Lyrica] AdvReac Mild Other Verified 03/11/23 13:09 divalproex sodium AdvReac Rash Verified 03/11/23 13:09 [From Depakote] nitroglycerin AdvReac Vomiting Verified 03/11/23 13:09 Penicillins AdvReac Rash Verified 03/11/23 13:09 Family History Father Alcoholism Cancer, Onset Age: 59 stomach Heart disease Mother Anemia Depression Pulmonary fibrosis POTS (postural orthostatic tachycardia syndrome) Grandfather Cancer Son Depression Seizures Daughter Depression Brother Heart disease Myocardial infarction, Onset Age: 26 POTS (postural orthostatic tachycardia syndrome) Aunt Seizures Surgical History H/O knee surgery History of Social History household members: children current occupational status: unemployed Smoking Status: Former smoker quit date: 11/04/21 pack-years: 20 Electronic Cigarette Use: not used alcohol intake: current alcohol intake frequency: holidays/special occasions only substance use type: former substance user Date of last use: cocaine, crack, meth and acid as a teenager and marijuana do you feel safe at home: Yes ROS ROS ED Constitutional Constitutional ED: Reports chills and fever(s); Denies sweats Eyes Eyes: Denies blurry vision or change in vision ENT ENT ED: Denies ear pain or sore throat Cardiovascular Cardiovascular: Denies chest pain, palpitations or racing heartbeat Respiratory/Chest Respiratory/Chest: Denies cough, dyspnea or sputum Gastrointestinal Gastrointestinal: Reports abdominal pain, constipation, nausea and vomiting; Denies diarrhea Genitourinary Genitourinary ED: Denies dysuria, hematuria or urinary frequency Musculoskeletal Musculoskeletal: Reports myalgias; Denies arthralgias or neck pain Integumentary Denies abscess, Abrasions or rash Neurologic Neurologic: Reports headache(s); Denies paresthesias or weakness Psychiatric Psychiatric: Denies anxiety, depression, suicidal ideation or suicidal thoughts Endocrine Endocrinology: Denies polydipsia or polyuria EXAM Physical Exam Const Vital Signs: 03/11/23 13:09 Temperature 98.8 F Temperature Source Temporal Pulse Rate 87 Respiratory Rate 18 Blood Pressure 118/78 Blood Pressure Mean 91 Pulse Ox 99 Oxygen Delivery Method Room Air Positive well nourished General Appearance ED: NAD; Negative for pallor HEENT Reports moist mucous membranes normocephalic and atraumatic Eyes PERRL and EOMs intact bilaterally Resp normal respiratory effort Cardio regular rate and regular rhythm GI Palpation: tender LLQ Extremity full ROM Neuro CN's II-XII intact bilaterally, moves all extremities and no sensory deficits noted Sensorium / Orientation: alert Motor Exam: strength 5/5 throughout Psych mental status grossly normal and thought process normal Skin General Skin Exam: Negative for jaundice or pallor MDM MDM MDM Narrative Medical decision making narrative: Patient presenting with abdominal pain. She has history of chronic constipation, abdominal pain, hepatitis B, lupus anticoagulant disorder and sees Dr. Krueger. Patient presenting with right flank pain. Differential includes colitis, diverticulitis, gastritis, pancreatitis, constipation, UTI, pyelonephritis, renal calculi, ureteral calculi, bowel obstruction, malignancy, dehydration, electrolyte abnormalities. Patient medicated with morphine, Zofran. She was given IV fluids. CBC was obtained to assess white blood cell count, hemoglobin, platelets. CMP to assess liver function, renal function, electrolytes, glucose. Lipase to assess for pancreatitis. Urinalysis to assess for UTI. We will obtain a CT of the abdomen pelvis with IV contrast. CBC shows a white blood cell count of 5.9. Hemoglobin 13.9. Platelets are normal at 224. Renal function and electrolytes within normal limits. LFTs are normal. Urinalysis negative for infection. CT the abdomen pelvis with IV contrast was obtained and does not show any acute findings. It does show hepatomegaly. Discussed with Dr. Krueger who recommended Bentyl and Zofran for home. Lots of p.o. fluids. Follow-up as needed. Return precaution discussed. Impression: 1. Abdominal pain 2. Nausea Lab Data Attestation: I reviewed the patient's lab results. Labs: Laboratory Results - last 24 hr 03/11/23 03/11/23 13:25 14:26 WBC 5.9 RBC 4.51 Hgb 13.9 Hct 41.7 MCV 92.5 MCH 30.8 MCHC 33.3 RDW Std Deviation 48.9 H RDW Coeff of Paulo 14.5 Plt Count 224 MPV 9.4 Immature Gran % (Auto) 0.300 Neut % (Auto) 59.6 Lymph % (Auto) 31.5 [place] % (Auto) 7.3 Eos % (Auto) 0.8 Baso % (Auto) 0.5 Absolute Neuts (auto) 3.5 Absolute Lymphs (auto) 1.86 Nucleated RBC % 0 Sodium 138 Potassium 3.7 Chloride 103 Carbon Dioxide 29.0 Anion Gap 6 BUN 6 L Creatinine 0.84 Estim Creat Clear Calc 72.17 Est GFR (MDRD) Af Amer 96 Est GFR (MDRD) Non-Af 79 BUN/Creatinine Ratio 7.2 L Glucose 88 Calcium 9.5 Total Bilirubin 0.30 AST 19 ALT 23 Alkaline Phosphatase 47 Total Protein 8.0 Albumin 3.8 Globulin 4.2 Albumin/Globulin Ratio 0.9 Lipase 16 Urine Color Yellow Urine Clarity Sl. Cloudy Urine pH 8.0 Ur Specific [place] 1.015 Urine Protein 15 H Urine Glucose (UA) Normal Urine Ketones Negative Urine Occult Blood Negative Urine Nitrite Negative Urine Bilirubin Negative Urine Urobilinogen 1 H Ur Leukocyte Esterase 25 H Urine RBC 0 SEEN Urine WBC 0-5 SEEN Ur Squamous Epith Cells 0-5 SEEN Amorphous Sediment 2+ PHOS Urine Bacteria RARE Urine Mucus 0 SEEN Radiography Diagnostic Testing: Clinical Impression(s) from Imaging Studies Abdomen/Pelvis CT 03/11/23 13:49 IMPRESSION: (NOT LISTED IN ORDER OF SIGNIFICANCE) There are no acute findings. There is hepatomegaly with diffuse hepatic enlargement. Other findings as above. Electronically Signed: Hao Jones MD at 14:27 EST Reading Location ID and State: [facility] / [place] , Service support , Discharge Plan Triage Chief Complaint: Abd Pain ED Provider: Efrem Chowdary Dx/Rx/DC Orders Instructions: ED Abdominal Pain Unkn Cause Fem Prescriptions: New dicyclomine 20 mg tablet 20 mg PO TID Qty: 30 0RF ondansetron HCl 4 mg tablet 4 mg PO DAILY PRN (Reason: nausea and vomiting) Qty: 14 0RF No Action ondansetron 4 mg tablet,disintegrating 4 mg PO Q6H PRN (Reason: nausea and vomiting) Qty: 30 0RF (DME) compress.stocking,knee,reg,med Misc See Rx Instructions .Route Qty: 2 0RF Rx Instructions: As directed pantoprazole [Protonix] 40 mg tablet,delayed release (DR/EC) 40 mg PO DAILY Qty: 30 9RF Linzess 145 mcg capsule 145 mcg PO QAM Qty: 30 4RF hydroxyzine HCl 25 mg tablet 25 mg PO BID PRN (Reason: anxiety) Qty: 20 0RF entecavir 0.5 mg tablet 0.5 mg PO DAILY Qty: 30 6RF enoxaparin [Lovenox] 100 mg/mL syringe 90 mg subcut DAILY Qty: 30 2RF Primary Care Provider: Colleen Du Referrals: Colleen Du MD [Primary Care Provider] - Bro Krueger DO [Med Staff - Active Staff] - 3-5 Days Disposition Disposition: Home, Self Care
[2023-03-11 14:29] LABS: Mucous, Urine 0 SEEN /hpf (<or=2+); Red Blood Cells-Urine 0 SEEN /hpf (0-5)
[2023-03-11 14:31] LABS: Color, Urine Yellow (Yellow); Glucose, Dipstick Normal (Normal); Ketone-Dipstick Negative (Negative); Leukocyte Esterase-Dipstick 25 /ul (Negative); Nitrite-Dipstick Negative (Negative); Occult Blood-Urine Negative /ul (Negative); Protein-Dipstick 15 mg/dl (Negative); Specific Gravity, Urine 1.015 (1.002-1.030); Urine Bilirubin Dipstick Negative (Negative); Urine Clarity Sl. Cloudy (Clear); Urine Urobilinogen 1 mg/dl (Normal)
[2023-03-11 15:21] LABS: Bacteria RARE /hpf (None Seen); Squamous Epithelial Cells - UA 0-5 SEEN /hpf (5-10); White Blood Cells 0-5 SEEN /hpf (0-5)
[2023-03-11 15:22] LABS: Amorphous Sediment 2+ PHOS
[2023-03-11 15:46] VITALS: BP 128/79; PULSE 69; RESP 16
== END 2023-03-11 15:46 | disposition home or self-care (01) ==
PROVIDERS: Emergency Provider Student in an Organized Health Care Education/Training Program; PCP Internal Medicine; Visit Provider Student in an Organized Health Care Education/Training Program
DX: R10.9 Unspecified abdominal pain (principal); R11.0 Nausea; Z86.718 Personal history of other venous thrombosis and embolism; Z87.891 Personal history of nicotine dependence
CPT/HCPCS: 74177; 80053; 81001; 83690; 85025; 96361; 96374; 96375; 99284; J7030; Q9967; A4216; J2405

== ENCOUNTER → 2023-07-13 | Outpatient (CLI) | payer MEDICARE, MEDICAID, SELFPAY ==
--- OUTSIDE RECORDS SUMMARY | 2023-07-13 10:53 | XMS RPT_ITS | CCD ---
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 Name Role Phone NO, DOCTOR ON Consulting Unavailable NANCY MCDERMOTT Attending Unavailable NANCY MCDERMOTT Primary Care Unavailable NANCY MCDERMOTT Admitting Unavailable PROVIDER, UNKNOWN Attending Unavailable PROVIDER, UNKNOWN Admitting Unavailable PATIENT, SELF Referring Unavailable Required, No Pcp Unavailable Unavailable Dwain Cassidy Unavailable Mike Phillips MD Primary Care Provider [facility] Physicians Primary Care Provider Unav ailable EDGAR PHILLIPS Attending Unavailable [facility] Primary Care Unavailable [facility] Primary Care Unavailable DAT DAMICO Attending Unavailable Allergies Allergy Classification Reported Allergen(s) Allergy Type Date of Onset Reaction(s) Facility Latex (1 source) Latex; Translations: [LATEX] Substance Allergy [facility] Repository Macrolides (antibiotic) (2 sources) Erythromycin; Translations: [ZITHROMAX] Drug Allergy [facility] Repository Nitrate Vasodilator (1 source) Nitroglycerin Drug Allergy [facility] Repository Penicillins (antibiotic) (2 sources) Penicillin; Translations: [AMOXICILLIN] Drug Allergy [facility] Repository Sulfonamides (antibiotic) (1 source) Sulfonamides (Antibiotic) Drug Allergy [facility] Repository (3 sources) Amoxicillin; Translations: [AMOXICILLIN] Drug Allergy 03-01-20 Rash, GI Upset [facility] Rep[facility] (6 sources) Azithromycin; Translations: [AZITHROMYCIN] Drug Allergy 07-09-19 09 Rash, Itching [facility] Rep[facility] (6 sources) Doxycycline; Translations: [DOXYCYCLINE] Drug Allergy 06-04-19 09 Intolerance, GI Upset [email or web address] (7 sources) Latex; Translations: [LATEX] Propensity to adverse reactions to drug (disorder) 08-17-19 06 Rash [facility] (6 sources) Penicillins; Translations: [PENICILLINS] Propensity to adverse reactions to drug (disorder) 03-01-20 04 Rash, GI Upset [facility] (5 sources) Valproate; Translations: [VALPROIC ACID] Drug Allergy 01-13-20 08 [facility] (6 sources) ERYTHROMYCIN BASE; Translations: [ERYTHROMYCIN BASE] Propensity to adverse reactions to drug (disorder) 03-01-20 04 Rash, GI Upset [email or web address] (1 source) OTHER (REVIEW COMMENTS!); Translations: [OTHER (REVIEW COMMENTS!)] Propensity to adverse reactions to drug (disorder) 03-01-20 04 [email or web address] (2 sources) Nitroglycerin Drug Allergy 11-19-19 21 GI Upset [facility] (1 source) Penicillin Drug Allergy Unknown [facility] (1 source) Sulfonamides (Antibiotic) Unknown [facility] (1 source) Sulfonamides (Antibiotic) Propensity to adverse reactions 03-01-20 04 Rash, GI Upset [facility] Work Phone: (1 source) Valproate Drug Allergy 01-13-20 08 GI Upset [facility] Work Phone: Medications Current Medications Medication Drug Class(es) Dates Sig (Normalized) Sig (Original) ofloxacin 3 mg/ml otic solution (2 sources) Quinolone Antimicrobial Start: 05-12-2023 End: 05-29-2023 ofloxacin (Floxin) 0.3 % otic solution Administer 3 drops into affected ear(s) 2 times daily for 17 days. 3 drops in affected ear 5 mL 0 05/12/2023 05/29/2023 Active pantoprazole (4 sources) Proton Pump Inhibitor PANTOPRAZOLE SODIUM PO Take by mouth. 0 Active sulfamethoxazole 800 mg / trimethoprim 160 mg oral tablet (2 sources) Dihydrofolate Reductase Inhibitor Antibacterial, Sulfonamide Antimicrobial Start: 04-19-2023 End: 04-24-2023 take 1 tablet by mouth twice daily sulfamethoxazole- trimethoprim (Bactrim DS) 800-160 MG tablet Take 1 tablet by mouth 2 times daily for 5 days. 10 tablet 0 04/19/2023 04/24/2023 Active Completed/Discontinued Medications Medication Drug Class(es) Dates Sig (Normalized) Sig (Original) amphetamine aspartate 7.5 mg / amphetamine sulfate 7.5 mg / dextroamphetamine saccharate 7.5 mg / dextroamphetamine sulfate 7.5 mg oral tablet (1 source) Central Nervous System Stimulant take 1 tablet by mouth once daily Amphetamine-Dextr oamphetamine (ADDERALL) 30 mg tablet Take 30 mg by mouth once daily. 0 Active Problems Active Problems Problem Classification Problem Date Documented Date Episodic/Chronic Aortic and peripheral arterial embolism or thrombosis (1 source) Vascular disorder; Translations: [Embolism and thrombosis of unspecified artery] Onset: 8 12-26-2007 Chronic Cardiac and circulatory congenital anomalies (1 source) Congenital anomaly of peripheral blood vessel; Translations: [Congenital malformation of peripheral vascular system, unspecified] Onset: 8 12-26-2007 Chronic Coagulation and hemorrhagic disorders (1 source) Hypercoagulability state; Translations: [Other primary thrombophilia] Onset: 8 12-26-2007 Chronic Epilepsy; convulsions (1 source) Generalized convulsive epilepsy; Translations: [Generalized idiopathic epilepsy and epileptic syndromes, not intractable, without status epilepticus] Onset: 6 12-26-2007 Chronic Genitourinary symptoms and ill-defined conditions (2 sources) Hematuria, unspecified; Translations: [Hematuria, unspecified] Onset: 3 Episodic Other ear and sense organ disorders (2 sources) Otorrhagia of left ear; Translations: [Otorrhagia, left ear] 05-12-2023 Episodic Other ear and sense organ disorders (2 sources) Otorrhagia, left ear; Translations: [Otorrhagia, left ear] Onset: 4 Episodic Other nervous system disorders (1 source) Cataplexy and narcolepsy; Translations: [Narcolepsy with cataplexy] Onset: 9 04-05-2009 Chronic Other non-traumatic joint disorders (1 source) Arthropathy; 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, unspecified] Onset: 8 12-26-2007 Chronic Esha-; endo-; and myocarditis; cardiomyopathy (except that caused by tuberculosis or sexually transmitted disease) (1 source) Primary cardiomyopathy; Translations: [Other cardiomyopathies] Onset: 8 12-26-2007 Chronic Substance-related disorders (1 source) Tobacco user; Translations: [Nicotine dependence, unspecified, uncomplicated] Onset: 8 12-26-2007 Chronic Unclassified (2 sources) TROUBLE BREATHING LEFT AT 250 PM 10-05-2021 Past or Other Problems Problem Classification Problem Date Documented Da te Episodic/Chronic Abdominal pain (1 source) Generalized abdominal pain; Translations: [Generalized abdominal pain] Onset: 10-16-2008 10-16-2008 Episodic Encephalitis (except that caused by tuberculosis or sexually transmitted disease) (1 source) Encephalitis, myelitis and encephalomyelitis; Translations: [Encephalitis and encephalomyelitis, unspecified] Onset: 12-14-2003 12-26-2007 Episodic Other connective tissue disease (1 source) Muscle pain; Translations: [Myalgia and myositis, unspecified] Onset: 08-16-2005 06-04-2008 Episodic Unclassified (1 source) TROUBLE BREATHING 10-05-2021 Results Test Name Value Interpretation Reference Range Facil ity Vital Signs Date Time Vital Sign Value Performing Clinician Faci lity 05-12-2023 15:46-0500 Body height 160 cm Dat Damico MD Work Phone: [facility] 05-12-2023 15:46-0500 Body mass index (BMI) [Ratio] 21.43 kg/m2 Dat Damico MD Work Phone: [facility] 05-12-2023 15:46-0500 Body temperature 99 [degF] Dat Damico MD Work Phone: [facility] 05-12-2023 15:46-0500 Body weight 54.88 kg Dat Damico MD Work Phone: [facility] 05-12-2023 15:46-0500 Diastolic blood pressure 97 mm[Hg] Dat Damico MD Work Phone: [facility] 05-12-2023 15:46-0500 Heart rate 74 /min Dat Damico MD Work Phone: [facility] 05-12-2023 15:46-0500 Respiratory rate 16 /min Dat Damico MD Work Phone: [facility] 05-12-2023 15:46-0500 SaO2% (BldA) [Mass fraction] 98 % Dat Damico MD Work Phone: [facility] 05-12-2023 15:46-0500 Systolic blood pressure 142 mm[Hg] Dat Damico MD Work Phone: [facility] 04-19-2023 16:20-0500 Body temperature 100.2 [degF] Edgar Phillips MD Work Phone: [facility] 04-19-2023 16:20-0500 Body weight 56.7 kg Edgar Phillips MD Work Phone: [facility] 04-19-2023 16:20-0500 Diastolic blood pressure 82 mm[Hg] Edgar Phillips MD Work Phone: [facility] 04-19-2023 16:20-0500 Heart rate 84 /min Edgar Phillips MD Work Phone: [facility] 04-19-2023 16:20-0500 Respiratory rate 16 /min Edgar Phillips MD Work Phone: [facility] 04-19-2023 16:20-0500 SaO2% (BldA) [Mass fraction] 98 % Edgar Phillips MD Work Phone: [facility] 04-19-2023 16:20-0500 Systolic blood pressure 146 mm[Hg] Edgar Phillips MD Work Phone: [facility] 10-05-2021 16:49-0400 Body temperature 100.4 [degF] No Pcp Required [facility] 10-05-2021 12:33-0400 Body height 160 cm No Pcp Required [facility] 10-05-2021 12:33-0400 Body weight 57 kg No Pcp Required [facility] 10-05-2021 12:33-0400 Diastolic blood pressure 84 mm[Hg] No Pcp Required [facility] 10-05-2021 12:33-0400 Heart rate 97 /min No Pcp Required [facility] 10-05-2021 12:33-0400 Respiratory rate 16 /min No Pcp Required [facility] 10-05-2021 12:33-0400 SaO2% (BldA) [Mass fraction] 97 % No Pcp Required [facility] 10-05-2021 12:33-0400 Systolic blood pressure 150 mm[Hg] No Pcp Required [facility] Encounters Encounter Date Encounter Type Care Provider Facility Start: 05-12-2023 End: 05-12-2023 Emergency department patient visit [facility] Start: 05-12-2023 End: 05-12-2023 Emergency department patient visit Dat Damico MD Work Phone: [facility] Emergency Dept Procedures Date Procedure Procedure Detail Performing Clinician Start: 04-19-2023 Urinalysis complete panel - Urine Edgar Phillips MD Work Phone: Start: 04-19-2023 Urine test visual color cmprsn meths Edgar Phillips MD Work Phone: Start: 04-19-2023 Urnls dip stick/tabl et reagent auto microscopy Edgar Phillips MD Work Phone: Plan of Treatment Date Care Activity Detail Author Start: 2040 RSV Immunization aged 60 or older (1 - 1-dose 60+ series) RSV Immunization aged 60 or older (1 - 1-dose 60+ series) [facility] Start: 2030 Zoster Vaccines (1 of 2) Zoster Vaccines (1 of 2) [facility] Start: 06-26-2023 End: 06-26-2023 Patient encounter procedure 06/26/2023 2:00 PM EST Office Visit [facility] Internal Medicine [address] [place] [id number] Calli Childs MD [facility] [place] [address] [facility] Medical [facility] Start: 01-05-2023 Influenza vaccination [facility] Start: 05-07-2022 DEPRESSION ASSESSMENT DEPRESSION ASSESSMENT [facility] Start: 2020 Mammography MAMMOGRAM [facility] Start: 2020 Screening for malignant neoplasm of breast Mammogram [facility] Start: 03-22-2019 DTaP/Tdap/Td Vaccines (2 - Td or Tdap) DTaP/Tdap/Td Vaccines (2 - Td or Tdap) [facility] Start: 03-22-2019 Urine microalbumin profile DTAP,TDAP,TD (2 - Td or Tdap) [facility] Start: 2010 HPV TESTING HPV TESTING [facility] Start: 2010 Screening for malignant neoplasm of cervix [facility] Start: 04-20-2009 MMR Vaccines (1 of 1 - Standard series) MMR Vaccines (1 of 1 - Standard series) [facility] Start: 04-20-2009 Varicella vaccination Varicella Vaccines (1 of 2 - 2-dose childhood series) [facility] Start: 02-05-2008 PNEUMOCOCCAL (2 - PCV) PNEUMOCOCCAL (2 - PCV) [facility] Start: 2001 PAP TESTING PAP TESTING [facility] Start: 2001 Screening for malignant neoplasm of cervix Pap Smear [facility] Start: 08-03-1999 Hepatitis A Vaccines (1 of 2 - Risk 2-dose series) Hepatitis A Vaccines (1 of 2 - Risk 2-dose series) [facility] Start: 1998 Hepatitis C screening Hepatitis C Screening [facility] Start: 1992 Depression Screening Depression Screening [facility] Start: 02-02-1981 COVID-19 VACCINE (#1) COVID-19 VACCINE (#1) [facility] Start: 1980 HEPATITIS B (1 of 3 - 3-dose series) HEPATITIS B (1 of 3 - 3-dose series) [facility] Start: 1980 Hepatitis B Vaccines (1 of 3 - 3-dose series) Hepatitis B Vaccines (1 of 3 - 3-dose series) [facility] Start: 1980 HIV screening HIV Screening [facility] Start: 1980 Medicare Advantage Annual Wellness Visit (AWV) Medicare Advantage Annual Wellness Visit (AWV) [facility] End: 04-19-2023 Bacteria identified in Urine by Culture [facility] Work Phone: Immunizations Immunization Date Immunization Notes Care Provider Martin power 04-03-2014 influenza virus vacc ine, unspecified formulation Dat Damico MD Work Phone: [facility] 03-23-2009 novel influenza-H1N1 -09, all formulations Neurology Provider [facility] 03-23-2009 influenza virus vacc ine, unspecified formulation Edgar Phillips MD Work Phone: [facility] 03-22-2009 tetanus toxoid, redu bhupendra diphtheria toxoid, and acellular pertussis vaccine, adsorbed Neurology Provider [facility] Work Phone: 02-04-2007 pneumococcal polysaccharide vaccine, 23 valent Neurology Provider [facility] Work Phone: Payers Date Payer Category Payer Medicare AETNA MEDICARE A DVANTAGE AETNA MEDICARE [id number] 2023-Present [address] [place] [address] Medicare HMO [id number] 2023 Medicare [id number] 2020 Medicaid [id number] 2018 Private Health Insurance [id number] 1980 Unknown [id number] 1980 Unknown [id number] Unknown Social History Date Type Detail Facility [facility] Tobacco smoking consumption unknown [facility] Start: 07-14-2010 Tobacco smoking stat us NHIS Smokes tobacco daily [facility] Work Phone: History of tobacco use Cigarette Smoker [facility] Work Phone: Start: 07-14-2010 End: 05-12-2023 Cigarettes smoked current (pack per day) - Reported 0.5 [facility] Start: 07-14-2010 End: 04-19-2023 Tobacco use and exposure Smokeless tobacco non-user [facility] Work Phone: Start: 12-22-2021 Alcohol intake Current drinke r of alcohol (finding) [facility] Start: 12-22-2021 End: 05-12-2023 Tobacco use panel [facility] National Score (1-10 0), lower number is lower risk Not on file [facility] Start: 07-14-2010 Alcohol Comment occasional [facility] Start: 1980 Sex Assigned At Not on file [facility] Start: 04-19-2023 Tobacco smoking stat [facility] Never smoked tobacco [facility] Start: 04-19-2023 End: 05-12-2023 Alcohol intake Ex-drinker (finding) [facility] Emergency department Note 05-12-2023 Dat Damico MD - 05/12/2023 3:30 PM EST Note Date & Type Note Facility 05-12-2023 Emergency departm ent Note EMERGENCY DEPARTMENT ENCOUNTER Pt Name: Gabriela Duarte Birthdate 1980 Date of evaluation: 05/12/2023 ED Provider: Dat Damico MD CHIEF COMPLAINT Chief Complaint Patient presents with Ear Drainage Patient c/o bleeding from L ear starting today. Has had cold symptoms recently HISTORY OF PRESENT ILLNESS (Location/Symptom, Timing/Onset, Context/Setting, Quality, Duration, Modifying Factors, Severity) Note limiting factors. I wore appropriate PPE for the entirety of this encounter. HPI Gabriela Duarte is a 42 y.o. who presents to the emergency department with chief complaint of bleeding from the left ear. Patient may have injured it while using a Q-tip this morning no other acute complaints. Nursing Notes were reviewed. Limitations to history: Outside historians: REVIEW OF SYSTEMS Review of Systems Pertinent positives and negatives as per HPI. PAST MEDICAL HISTORY Past Medical History: Diagnosis Date Cardiomyopathy (HCC) Cystitis Epilepsy (HCC) Fibromyalgia GERD (gastroesophageal reflux disease) Hepatitis B Lupus anticoagulant disorder (HCC) Mononucleosis SURGICAL HISTORY History reviewed. No pertinent surgical history. CURRENT MEDICATIONS Previous Medications ENOXAPARIN SODIUM (LOVENOX SC) Inject under the skin. PANTOPRAZOLE SODIUM PO Take by mouth. ALLERGIES Doxycycline, Valproic acid, Azithromycin, Erythromycin base, Latex, and Penicillins FAMILY HISTORY No family history on file. SOCIAL HISTORY Social History Socioeconomic History Marital status: Single Tobacco Use Smoking status: Never Smokeless tobacco: Never Vaping Use Vaping Use: Never used Substance and Sexual Activity Alcohol use: Not Currently Drug use: Yes Types: Marijuana Sexual activity: Yes SCREENINGS PHYSICAL EXAM ED Triage Vitals [05/12/23 1546] Temp Heart Rate Resp BP 37.2 C (99 F) 74 16 (!) 142/97 SpO2 Temp Source Heart Rate Source Patient Position 98 % Temporal -- -- BP Location FiO2 (%) -- -- Physical Exam Vitals and nursing note reviewed. Constitutional: General: She is not in acute distress. Appearance: She is well-developed. HENT: Head: Normocephalic and atraumatic. Ears: Comments: Excoriated tissue in the inner ear canal left ear Eyes: Conjunctiva/sclera: Conjunctivae normal. Pulmonary: Effort: No respiratory distress. Skin: General: Skin is warm and dry. Neurological: Mental Status: She is alert. Psychiatric: Mood and Affect: Mood normal. DIAGNOSTIC RESULTS Procedures/EKG: EKG was reviewed by myself. Physician EKG interpretation can be found in [facility] RADIOLOGY (Per Emergency Physician): Interpretation per the Radiologist below, if available at the time of this note: No orders to display ED BEDSIDE ULTRASOUND: Performed by ED Physician - none LABS: Labs Reviewed - No data to display All other labs were within normal range or not returned as of this dictation. EMERGENCY DEPARTMENT COURSE and DIFFERENTIAL DIAGNOSIS/MDM: Vitals: Vitals: 05/12/23 1546 BP: (!) 142/97 Pulse: 74 Resp: 16 Temp: 37.2 C (99 F) TempSrc: Temporal SpO2: 98% Weight: 54.9 kg (121 lb) Height: 1.6 m (5' 3 ) Patient is 42 presenting with bleeding from the left ear. There looks to be an abrasion there in the ear canal plan to discharge Diagnoses as of 05/12/23 1602 Otorrhagia of left ear Medications - No data to display REVAL: CRITICAL CARE TIME CONSULTS: None PROCEDURES: Unless otherwise noted below, none Procedures Patients symptoms are consistent with sepsis, severe sepsis, or septic shock (If yes use .sepsiscoremeasure ): no FINAL IMPRESSION No diagnosis found. DISPOSITION PATIENT REFERRED TO: No follow-up provider specified. DISCHARGE MEDICATIONS: New Prescriptions No medications on file (Comment: Please note this report has been produced using speech recognition software and may contain errors related to that system including errors in grammar, punctuation, and spelling, as well as words and phrases that may be inappropriate. If there are any questions or concerns please feel free to contact the dictating provider for clarification.) Dat Damico MD (electronically signed) Emergency Medicine Provider Dat Damico MD 05/12/23 1602 documented in this encounter [facility] Physician Emergency department Note 05-12-2023 Dat Damico MD - 05/12/2023 3:30 PM EST Note Date & Type Note Facility 05-12-2023 Physician Emergen cy department Note EMERGENCY DEPARTMENT ENCOUNTER Pt Name: Gabriela Duarte Birthdate 1980 Date of evaluation: 05/12/2023 ED Provider: Dat Damico MD CHIEF COMPLAINT Chief Complaint Patient presents with Ear Drainage Patient c/o bleeding from L ear starting today. Has had cold symptoms recently HISTORY OF PRESENT ILLNESS (Location/Symptom, Timing/Onset, Context/Setting, Quality, Duration, Modifying Factors, Severity) Note limiting factors. I wore appropriate PPE for the entirety of this encounter. HPI Gabriela Duarte is a 42 y.o. who presents to the emergency department with chief complaint of bleeding from the left ear. Patient may have injured it while using a Q-tip this morning no other acute complaints. Nursing Notes were reviewed. Limitations to history: Outside historians: REVIEW OF SYSTEMS Review of Systems Pertinent positives and negatives as per HPI. PAST MEDICAL HISTORY Past Medical History: Diagnosis Date Cardiomyopathy (HCC) Cystitis Epilepsy (HCC) Fibromyalgia GERD (gastroesophageal reflux disease) Hepatitis B Lupus anticoagulant disorder (HCC) Mononucleosis SURGICAL HISTORY History reviewed. No pertinent surgical history. CURRENT MEDICATIONS Previous Medications ENOXAPARIN SODIUM (LOVENOX SC) Inject under the skin. PANTOPRAZOLE SODIUM PO Take by mouth. ALLERGIES Doxycycline, Valproic acid, Azithromycin, Erythromycin base, Latex, and Penicillins FAMILY HISTORY No family history on file. SOCIAL HISTORY Social History Socioeconomic History Marital status: Single Tobacco Use Smoking status: Never Smokeless tobacco: Never Vaping Use Vaping Use: Never used Substance and Sexual Activity Alcohol use: Not Currently Drug use: Yes Types: Marijuana Sexual activity: Yes SCREENINGS PHYSICAL EXAM ED Triage Vitals [05/12/23 1546] Temp Heart Rate Resp BP 37.2 C (99 F) 74 16 (!) 142/97 SpO2 Temp Source Heart Rate Source Patient Position 98 % Temporal -- -- BP Location FiO2 (%) -- -- Physical Exam Vitals and nursing note reviewed. Constitutional: General: She is not in acute distress. Appearance: She is well-developed. HENT: Head: Normocephalic and atraumatic. Ears: Comments: Excoriated tissue in the inner ear canal left ear Eyes: Conjunctiva/sclera: Conjunctivae normal. Pulmonary: Effort: No respiratory distress. Skin: General: Skin is warm and dry. Neurological: Mental Status: She is alert. Psychiatric: Mood and Affect: Mood normal. DIAGNOSTIC RESULTS Procedures/EKG: EKG was reviewed by myself. Physician EKG interpretation can be found in [facility] RADIOLOGY (Per Emergency Physician): Interpretation per the Radiologist below, if available at the time of this note: No orders to display ED BEDSIDE ULTRASOUND: Performed by ED Physician - none LABS: Labs Reviewed - No data to display All other labs were within normal range or not returned as of this dictation. EMERGENCY DEPARTMENT COURSE and DIFFERENTIAL DIAGNOSIS/MDM: Vitals: Vitals: 05/12/23 1546 BP: (!) 142/97 Pulse: 74 Resp: 16 Temp: 37.2 C (99 F) TempSrc: Temporal SpO2: 98% Weight: 54.9 kg (121 lb) Height: 1.6 m (5' 3 ) Patient is 42 presenting with bleeding from the left ear. There looks to be an abrasion there in the ear canal plan to discharge Diagnoses as of 05/12/23 1602 Otorrhagia of left ear Medications - No data to display REVAL: CRITICAL CARE TIME CONSULTS: None PROCEDURES: Unless otherwise noted below, none Procedures Patients symptoms are consistent with sepsis, severe sepsis, or septic shock (If yes use .sepsiscoremeasure ): no FINAL IMPRESSION No diagnosis found. DISPOSITION PATIENT REFERRED TO: No follow-up provider specified. DISCHARGE MEDICATIONS: New Prescriptions No medications on file (Comment: Please note this report has been produced using speech recognition software and may contain errors related to that system including errors in grammar, punctuation, and spelling, as well as words and phrases that may be inappropriate. If there are any questions or concerns please feel free to contact the dictating provider for clarification.) Dat Damico MD (electronically signed) Emergency Medicine Provider Dat Damico MD 05/12/23 1602 [facility] Emergency department Note 04-19-2023 Edgar Phillips MD - 04/19/2023 4:14 PM EST Note Date & Type Note Facility 04-19-2023 Emergency departm ent Note [facility] EMERGENCY DEPT EMERGENCY DEPARTMENT ENCOUNTER Pt Name: Gabriela Duarte Birthdate 1980 Date of evaluation: 04/19/2023 Provider: Edgar Phillips MD CHIEF COMPLAINT Chief Complaint Patient presents with Difficulty Urinating Pt c/o dysuria x one week. +N/V HISTORY OF PRESENT ILLNESS (Location/Symptom, Timing/Onset,Context/Setting, Quality, Duration, Modifying Factors, Severity) Note limiting factors. Gabriela Duarte is a 42 y.o. female who presents to the emergency department presents with dysuria for a week. Some nausea. Intermittent vomiting. No chest pain. No shortness of breath. No fevers or chills. Feels suprapubic pressure and urgency and dysuria at the end of urination. Does not feel sick or ill otherwise. HPI Historian is the patient Nurse's notes for past medical history, surgical history, social history were reviewed. Medications and allergies reviewed. PAST MEDICAL HISTORY Past Medical History: Diagnosis Date Cardiomyopathy (HCC) Cystitis Epilepsy (HCC) Fibromyalgia GERD (gastroesophageal reflux disease) Hepatitis B Lupus anticoagulant disorder (HCC) Mononucleosis SURGICALHISTORY History reviewed. No pertinent surgical history. CURRENT MEDICATIONS Discharge Medication List as of 04/19/2023 6:04 PM CONTINUE these medications which have NOT CHANGED Details Enoxaparin Sodium (LOVENOX SC) Inject under the skin., Historical Med PANTOPRAZOLE SODIUM PO Take by mouth., Historical Med Doxycycline, Valproic acid, Azithromycin, Erythromycin base, Latex, and Penicillins FAMILY HISTORY No family history on file. SOCIAL HISTORY Social History Socioeconomic History Marital status: Single Tobacco Use Smoking status: Never Smokeless tobacco: Never Vaping Use Vaping Use: Never used Substance and Sexual Activity Alcohol use: Not Currently Drug use: Yes Types: Marijuana Sexual activity: Yes SCREENINGS PHYSICAL EXAM (up to 7 for level 4, 8 or more for level 5) @EDTRIAGEVSS@ Appropriate PPE including n 95, gown, gloves, goggles where worn when appropriate with this patient. Physical Exam Vital signs reviewed general: Alert and oriented 3 head: Atraumatic eyes: Equal round reactive to light and accommodating, pupils are equal, round and reactive to light and accommodation oropharynx: Clear and well hydrated neck: Supple heart: Regular rate and rhythm, no murmurs lungs: Clear to auscultation bilaterally abdomen: Soft suprapubic discomfort but no rebound or guarding. Positive bowel sounds, no peritoneal findings. Extremities: Moving all fours, no tenderness. Normal capillary refill. Skin: No rash or lesions -to the exposed skin neurologically: Alert and oriented 3, no focal deficit DIAGNOSTIC RESULTS RADIOLOGY: Interpretation per the Radiologist below, if availableat the time of this note: No orders to display ED BEDSIDE ULTRASOUND: Performed by ED Physician - none LABS: Labs Reviewed COMPLETE URINALYSIS - Abnormal Result Value Color, Urine Dark Yellow (*) Clarity, Urine Extra Turbid (*) pH, Urine 5.5 Leukocytes, Urine 500 (*) Nitrite, Urine Negative Protein, Urine 200 (*) Glucose, Urine Normal Bilirubin, Urine Negative Ketones, Urine Negative Urobilinogen, Urine 3 (*) Blood, Urine 0.06 (*) Volume, Urine QNS for accurate quantitation. RBC, Urine 11-25 (*) WBC, Urine >100 (*) Squamous Epithelial, Urine 6-10 (*) Bacteria, Urine Many (*) Trichomonas, Urine Few (1-5) (*) SPECIFIC GRAVITY OF URINE (NUMERIC) 1.029 URINE CULTURE URINE CULTURE HCG QUALITATIVE URINE HCG,URINE QUAL Negative Narrative: is the most common reason for HCG in urine, although choriocarcinoma, hydatidiform mole, and certain nontrophoblastic malignancies also result in detectable urinary HCG levels. Sensitivity = 20mIU/mL. COMPLETE URINALYSIS WITH REFLEX TO CULTURE Narrative: The following orders were created for panel order Urinalysis complete with reflex to Culture. Procedure Abnormality Status --------- ------ Complete Urinalysis[[id number]] Abnormal Final result Please view results for these tests on the individual orders. All other labs were within normal range or not returned as of thisdictation. EMERGENCYDEPARTMENT COURSE and DIFFERENTIAL DIAGNOSIS/MDM: Vitals: Vitals: 04/19/23 1620 BP: (!) 146/82 Pulse: 84 Resp: 16 Temp: 37.9 C (100.2 F) TempSrc: Temporal SpO2: 98% Weight: 56.7 kg (125 lb) Medical Decision Making Problems Addressed: Urinary tract infection with hematuria, site unspecified: complicated acute illness or injury Amount and/or Complexity of Data Reviewed Labs: ordered. Risk Prescription drug management. EMERGENCY DEPARTMENT COURSE and DIFFERENTIAL DIAGNOSIS/MDM: Vitals: Vitals: 04/19/23 1620 BP: (!) 146/82 Pulse: 84 Resp: 16 Temp: 37.9 C (100.2 F) TempSrc: Temporal SpO2: 98% Weight: 56.7 kg (125 lb) The patient presented with a chief complaint of dysuria. The differential diagnosis associated with this patient's presentation includes UTI pyelonephritis abdominal process. Our workup consisted of ordering/reviewing urine urine . Urine does show signs of UTI. Patient is not . Patient treated with Pyridium here. Patient was sent home on Pyridium and Bactrim. Bactrim use due to allergies. Urine culture sent. Do not believe is pyelonephritis. She is not toxic. Do not believe blood work is needed. Diagnoses as of 04/19/23 182 Urinary tract infection with hematuria, site unspecified Diagnostics considered but not indicated based on history, physical, testing: None consider blood work and imaging however do not believe is clinically indicated. External records reviewed: Outpatient notes outpatient treatment 2019 for yates Radiologic diagnostics interpreted by me: film images such as CT, Ultrasound and MRI are read by the radiologist. Plain radiographic images are visualized and preliminarily interpreted by the emergency physician with the below findings: none Discussions with other clinicians: none Chronic conditions impacting care: Fibromyalgia Lupus anticoagulant disorder cardiomyopathy mononucleosis epilepsy GERD Social determinants of health affecting care: none Shared decision making: Patient agrees to treatment plan ED Medications managed: Medications phenazopyridine (Pyridium) tablet 200 mg (200 mg Oral Given 04/19/23 6086) Prescription drugs considered: Bactrim double strength 1 twice a day for 5 days. Pyridium 1 every 8 hours 6 total tablets. PROCEDURES: Unless otherwise noted below, none Procedures IMPRESSION 1. Urinary tract infection with hematuria, site unspecified DISPOSITION/PLAN DISPOSITION Discharge 04/19/2023 06:02:37 PM PATIENT REFERRED TO: Your doctor in 1 week DISCHARGE MEDICATIONS: Discharge Medication List as of 04/19/2023 6:04 PM START taking these medications Details phenazopyridine (Pyridium) 200 MG tablet Take 1 tablet (200 mg) by mouth 3 times daily for 2 days., Starting Vicky 04/19/2023, Until 04/21/2023, Normal sulfamethoxazole-trimethoprim (Bactrim DS) 800-160 MG tablet Take 1 tablet by mouth 2 times daily for 5 days., Starting Vicky 04/19/2023, Until 04/24/2023, Normal @[facility]([id number]:LAST:1)@ (Comment: Please notethis report has been produced using speech recognition software and may contain errors related to that system including errors in grammar, punctuation, and spelling, as well as words and phrases that may be inappropriate.If there is any questions or concerns please feel free to contact the dictating provider for clarification). Edgar Phillips MD (electronically signed) Attending Emergency Physician Edgar Phillips MD 04/19/23 1829 documented in this encounter [facility] Physician Emergency department Note 04-19-2023 Edgar Phillips MD - 04/19/2023 4:14 PM EST Note Date & Type Note Facility 04-19-2023 Physician Emergen cy department Note [facility] EMERGENCY DEPARTMENT ENCOUNTER Pt Name: Gabriela Duarte Birthdate 1980 Date of evaluation: 04/19/2023 Provider: Edgar Phillips MD CHIEF COMPLAINT Chief Complaint Patient presents with Difficulty Urinating Pt c/o dysuria x one week. +N/V HISTORY OF PRESENT ILLNESS (Location/Symptom, Timing/Onset,Context/Setting, Quality, Duration, Modifying Factors, Severity) Note limiting factors. Gabriela Duarte is a 42 y.o. female who presents to the emergency department presents with dysuria for a week. Some nausea. Intermittent vomiting. No chest pain. No shortness of breath. No fevers or chills. Feels suprapubic pressure and urgency and dysuria at the end of urination. Does not feel sick or ill otherwise. HPI Historian is the patient Nurse's notes for past medical history, surgical history, social history were reviewed. Medications and allergies reviewed. PAST MEDICAL HISTORY Past Medical History: Diagnosis Date Cardiomyopathy (HCC) Cystitis Epilepsy (HCC) Fibromyalgia GERD (gastroesophageal reflux disease) Hepatitis B Lupus anticoagulant disorder (HCC) Mononucleosis SURGICALHISTORY History reviewed. No pertinent surgical history. CURRENT MEDICATIONS Discharge Medication List as of 04/19/2023 6:04 PM CONTINUE these medications which have NOT CHANGED Details Enoxaparin Sodium (LOVENOX SC) Inject under the skin., Historical Med PANTOPRAZOLE SODIUM PO Take by mouth., Historical Med Doxycycline, Valproic acid, Azithromycin, Erythromycin base, Latex, and Penicillins FAMILY HISTORY No family history on file. SOCIAL HISTORY Social History Socioeconomic History Marital status: Single Tobacco Use Smoking status: Never Smokeless tobacco: Never Vaping Use Vaping Use: Never used Substance and Sexual Activity Alcohol use: Not Currently Drug use: Yes Types: Marijuana Sexual activity: Yes SCREENINGS PHYSICAL EXAM (up to 7 for level 4, 8 or more for level 5) @EDTRIAGEVSS@ Appropriate PPE including n 95, gown, gloves, goggles where worn when appropriate with this patient. Physical Exam Vital signs reviewed general: Alert and oriented 3 head: Atraumatic eyes: Equal round reactive to light and accommodating, pupils are equal, round and reactive to light and accommodation oropharynx: Clear and well hydrated neck: Supple heart: Regular rate and rhythm, no murmurs lungs: Clear to auscultation bilaterally abdomen: Soft suprapubic discomfort but no rebound or guarding. Positive bowel sounds, no peritoneal findings. Extremities: Moving all fours, no tenderness. Normal capillary refill. Skin: No rash or lesions -to the exposed skin neurologically: Alert and oriented 3, no focal deficit DIAGNOSTIC RESULTS RADIOLOGY: Interpretation per the Radiologist below, if availableat the time of this note: No orders to display ED BEDSIDE ULTRASOUND: Performed by ED Physician - none LABS: Labs Reviewed COMPLETE URINALYSIS - Abnormal Result Value Color, Urine Dark Yellow (*) Clarity, Urine Extra Turbid (*) pH, Urine 5.5 Leukocytes, Urine 500 (*) Nitrite, Urine Negative Protein, Urine 200 (*) Glucose, Urine Normal Bilirubin, Urine Negative Ketones, Urine Negative Urobilinogen, Urine 3 (*) Blood, Urine 0.06 (*) Volume, Urine QNS for accurate quantitation. RBC, Urine 11-25 (*) WBC, Urine >100 (*) Squamous Epithelial, Urine 6-10 (*) Bacteria, Urine Many (*) Trichomonas, Urine Few (1-5) (*) SPECIFIC GRAVITY OF URINE (NUMERIC) 1.029 URINE CULTURE URINE CULTURE HCG QUALITATIVE URINE HCG,URINE QUAL Negative Narrative: is the most common reason for HCG in urine, although choriocarcinoma, hydatidiform mole, and certain nontrophoblastic malignancies also result in detectable urinary HCG levels. Sensitivity = 20mIU/mL. COMPLETE URINALYSIS WITH REFLEX TO CULTURE Narrative: The following orders were created for panel order Urinalysis complete with reflex to Culture. Procedure Abnormality Status --------- ------ Complete Urinalysis[[id number]] Abnormal Final result Please view results for these tests on the individual orders. All other labs were within normal range or not returned as of thisdictation. EMERGENCYDEPARTMENT COURSE and DIFFERENTIAL DIAGNOSIS/MDM: Vitals: Vitals: 04/19/23 1620 BP: (!) 146/82 Pulse: 84 Resp: 16 Temp: 37.9 C (100.2 F) TempSrc: Temporal SpO2: 98% Weight: 56.7 kg (125 lb) Medical Decision Making Problems Addressed: Urinary tract infection with hematuria, site unspecified: complicated acute illness or injury Amount and/or Complexity of Data Reviewed Labs: ordered. Risk Prescription drug management. EMERGENCY DEPARTMENT COURSE and DIFFERENTIAL DIAGNOSIS/MDM: Vitals: Vitals: 04/19/23 1620 BP: (!) 146/82 Pulse: 84 Resp: 16 Temp: 37.9 C (100.2 F) TempSrc: Temporal SpO2: 98% Weight: 56.7 kg (125 lb) The patient presented with a chief complaint of dysuria. The differential diagnosis associated with this patient's presentation includes UTI pyelonephritis abdominal process. Our workup consisted of ordering/reviewing urine urine . Urine does show signs of UTI. Patient is not . Patient treated with Pyridium here. Patient was sent home on Pyridium and Bactrim. Bactrim use due to allergies. Urine culture sent. Do not believe is pyelonephritis. She is not toxic. Do not believe blood work is needed. Diagnoses as of 04/19/23 1829 Urinary tract infection with hematuria, site unspecified Diagnostics considered but not indicated based on history, physical, testing: None consider blood work and imaging however do not believe is clinically indicated. External records reviewed: Outpatient notes outpatient treatment 2019 for yates Radiologic diagnostics interpreted by me: film images such as CT, Ultrasound and MRI are read by the radiologist. Plain radiographic images are visualized and preliminarily interpreted by the emergency physician with the below findings: none Discussions with other clinicians: none Chronic conditions impacting care: Fibromyalgia Lupus anticoagulant disorder cardiomyopathy mononucleosis epilepsy GERD Social determinants of health affecting care: none Shared decision making: Patient agrees to treatment plan ED Medications managed: Medications phenazopyridine (Pyridium) tablet 200 mg (200 mg Oral Given 04/19/23 1639) Prescription drugs considered: Bactrim double strength 1 twice a day for 5 days. Pyridium 1 every 8 hours 6 total tablets. PROCEDURES: Unless otherwise noted below, none Procedures IMPRESSION 1. Urinary tract infection with hematuria, site unspecified DISPOSITION/PLAN DISPOSITION Discharge 04/19/2023 06:02:37 PM PATIENT REFERRED TO: Your doctor in 1 week DISCHARGE MEDICATIONS: Discharge Medication List as of 04/19/2023 6:04 PM START taking these medications Details phenazopyridine (Pyridium) 200 MG tablet Take 1 tablet (200 mg) by mouth 3 times daily for 2 days., Starting Vicky 04/19/2023, Until 04/21/2023, Normal sulfamethoxazole-trimethoprim (Bactrim DS) 800-160 MG tablet Take 1 tablet by mouth 2 times daily for 5 days., Starting Vicky 04/19/2023, Until 04/24/2023, Normal @[facility]([id number]:LAST:1)@ (Comment: Please notethis report has been produced using speech recognition software and may contain errors related to that system including errors in grammar, punctuation, and spelling, as well as words and phrases that may be inappropriate.If there is any questions or concerns please feel free to contact the dictating provider for clarification). Edgar Phillips MD (electronically signed) Attending Emergency Physician Edgar Phillips MD 04/19/23 1889 [facility] Health Note 11-20-2022 Telephone Encounter - Latoya Fernandez - 11/20/2022 2:05 PM EDTTelephone Encounter - Latoya Fernandez - 11/15/2022 8:57 AM EDTTelephone Encounter - Latoya Fernandez - 11/10/2022 1:57 PM EDT Note Date & Type Note Facility 11-20-2022 Miscellaneous Notes Formattin g of this note might be different from the original. The phone number is still a non working number. Called the home number and it isn't a working number. Tried reaching the patient's father, and all phone circuits are busy. Will try to call the patient later. Pt previously followed by epilepsy and would recommend that patient again establish with the epilepsy department. Rodrigo Maya MD The patient is requesting an appointment with Dr. Maya. The patient needs to be seen for Epilepsy. Please advise if will see the patient. Received a referral from the nurse. The referral is from Dr. Colleen Du with [facility]. # [phone] fax# [phone] When trying to schedule the patient for DX Epilepsy, the message requested the patient to call # [phone] to schedule her appointment. Spoke with the patient and provided the phone number. Sent the referral and medical records to scanning. documented in this encounter [facility] History of Past illness Narrative 06-19-2007 Note Date & Type Note Facility documented as of this encounter (statuses as of 11/21/2022) [facility] Evaluation note Note Date & Type Note Facility documented in this encounter [facility] Evaluation note Note Date & Type Note Facility documented in this encounter [facility] Hospital Discharge instructions Attachments Note Date & Type Note Facility Hospital Discharge instructions The following attachments cannot be sent through Care Everywhere.Urinary Tract Infection, Adult ED (Georgian)documented in this encounter [facility] Summary Purpose Family History No Family History Records FoundNo Family History Records FoundNo Family History Records FoundNo Family History Records FoundNo Family History Records Found Advance Directives No Advanced Directives Records FoundNo Advanced Directives Records FoundNo Advanced Directives Records FoundNo Advanced Directives Records FoundNo Advanced Directives Records Found Additional Source Comments INFORMATION SOURCE (unrecogn ized section and content) DATE CREATED AUTHOR AUTHOR'S ORGANIZ ATION 06/02/2021 [facility] DATE CREATED AUTHOR AUTHOR'S ORGANIZ ATION 10/07/2021 [facility] DATE CREATED AUTHOR AUTHOR'S ORGANIZ ATION 11/21/2022 [facility] DATE CREATED AUTHOR AUTHOR'S ORGANIZ ATION 06/17/2023 [facility] <item> Privacy Markings (unrecogniz ed section and content) Section Author: Veronica Perez PROHIBITION ON REDISCLOSURE OF CONFIDENTIAL INFORMATION This notice accompanies a disclosure of information concerning a client made to you with the consent of such client. Source Comments (unrecognize d section and content) In the event this informatio n is protected by the Federal Confidentiality of Alcohol and Drug Abuse Patient Records regulations: The Federal rules restrict any use of the information to criminally investigate or prosecute any alcohol or drug abuse patient.[facility] Reason for Visit (unrecogniz ed section and content) Reason Comments Difficulty Urinating Pt c/o dysuria x on e week. +N/V Reason Comments Ear Drainage Patient c/o bleeding from L ear starting today. 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 This clinical summary was aggregated from multiple sources. Caution should be exercised in using it in the provision of clinical care. This summary normalizes information from multiple sources, and as a consequence, information in this document may materially change the coding, format and clinical context of patient data. In addition, data may be omitted in some cases. CLINICAL DECISIONS SHOULD BE BASED ON THE PRIMARY CLINICAL RECORDS. [facility] [email or web address] [facility]. provides no warranty or guarantee of the accuracy or completeness of information in this document.
[2023-07-13 11:03] LABS: Absolute Lymphocyte Count 1.65 X10^3/uL (0.83-4.51); Absolute Neutrophil Count 2.9 X10^3/uL (2.0-7.7); Basophil# 0.03 X10^3/uL; Basophil% 0.6 % (0-1); Eosinophil# 0.06 X10^3/uL; Eosinophils% 1.2 % (0-5); Hematocrit 43.9 % (37-47); Hemoglobin 14.4 g/dL (12.0-15.0); Lymphocyte # 1.65 X10^3/ul (0.83-4.51); Lymphocyte % 32.6 % (19-41); Mean Corp Hgb Conc 32.8 g/dL (32-36); Mean Corpuscular Hgb 30.6 pg (27.0-32.0); Mean Corpuscular Volume 93.2 fL (81-99); Mean Platelet Vol. 10.5 fl (6.2-12.0); Monocyte# 0.42 X10^3/uL; Monocyte% 8.3 % (0-10); NRBC Flagged by Analyzer 0 % (0-5); Neutrophil # 2.89 X10^3/uL (2.7-7.7); Neutrophil % 57.1 % (47-70); Platelet Count 189 K/mm3 (150-450); RBC Distribution Width CV 13.5 % (11.6-14.6); RBC Distribution Width SD 46.3 fl (35.1-43.9); Red Blood Count 4.71 M/mm3 (4.2-5.4); White Blood Count 5.1 K/mm3 (4.4-11.0)
[2023-07-13 11:28] LABS: AST(SGOT) 15 U/L (15-37); Alanine Aminotransfer ALT/SGPT 18 U/L (13-56); Alkaline Phosphatase 37 U/L (45-117); Anion Gap 4 (5-15); BUN 10 mg/dL (7-18); Calcium,Total 9.4 mg/dL (8.5-10.1); Chloride 108 mmol/L (98-107); EST Glomerular Filtration Rate 72 mL/min (>60); Est Glom Filt Rate - Afr Amer 87 mL/min (>60); Glucose 94 mg/dL (74-106); Potassium 4.1 mmol/L (3.5-5.1); Sodium Level 139 mmol/L (136-145)
== END | disposition home or self-care (01) ==
PROVIDERS: PCP Internal Medicine; Referring Provider Internal Medicine Gastroenterology; Visit Provider Internal Medicine Gastroenterology
DX: B16.9 Acute hepatitis B without delta-agent and without hepatic coma (principal)
CPT/HCPCS: 36415; 80053; 85025

== ENCOUNTER → 2023-08-10 | Outpatient (CLI) | payer MEDICAID, OTHER, SELFPAY ==
--- NOTE | 2023-08-10 10:48 | NM_ITS ---
CLINICAL: 43-year-old female with history of chronic nausea. SEMI-SOLID PHASE 99m Tc SULFUR COLLOID GASTRIC EMPTYING STUDY COMPARISON: None available FINDINGS: The patient was administered 1.1 mCi of 99m Tc sulfur colloid mixed with oatmeal and consumed per os. Image acquisitions in the anterior-posterior projections were obtained for 60 minutes. There is prompt visualization of the stomach. There is no gastroesophageal reflux identified. First order kinetics are maintained throughout the duration of the acquisitions. The T ? linear fit was calculated to be 76.15 minutes, (Normal: 12-56 minutes). NM/Gastric Emptying Study IMPRESSION: 1. ABNORMAL 99m Tc sulfur colloid semi-solid phase (oatmeal) gastric emptying imaging examination. A. There is delayed semi-solid phase gastric emptying compared to normal controls with maintained first order kinetics throughout all components of the examination. (Alannah et al, J Nucl Med Tech 38: 186, 2010). Electronically Signed: Rupesh Raymond DO at 7:24 EDT ,
== END | disposition home or self-care (01) ==
LOC: NM 10:47
PROVIDERS: PCP Internal Medicine; Referring Provider Internal Medicine Gastroenterology; Visit Provider Internal Medicine Gastroenterology
DX: R11.0 Nausea (principal); K59.09 Other constipation; B19.10 Unspecified viral hepatitis B without hepatic coma
CPT/HCPCS: 78264; A9541

== ENCOUNTER 2024-10-30 14:46 | Outpatient (CLI) | payer MEDICARE, MEDICAID, SELFPAY ==
--- NOTE | 2024-10-30 14:53 | ECHOD_ITS ---
Reason For Study Reason For Study: Dilated Cardiomyopathy Procedure This was a 2D Doppler, Color Flow transthoracic echocardiogram. Myocardial strain analysis was performed in this exam to aid in the assessment of cardiac function. Exam performed in department. Left Ventricle Normal LV size. The global longitudinal strain = -17.4 % (normal). The left ventricular ejection fraction is 55 %. Stage 1 diastolic dysfunction. No regional wall motion abnormalities noted. Right Ventricle Normal RV size. Normal systolic function. Tricuspid Valve Normal tricuspid valve. Mild tricuspid valve insufficiency. Pulmonary artery systolic pressure is 20 mmHg. Pulmonic Valve Normal pulmonic valve. Great Vessels Normal aortic root. The pulmonary artery is normal size. Inferior vena cava collapse with respiration. Pericardium/Pleural No pericardial effusion. MMode/2D Measurements & Calculations LVIDd: 5.1 cm IVSd: 0.83 cm LAV(MOD- bp): 46.7 ml LVIDs: 4.1 cm LVPWd: 0.88 cm RVDd: 2.9 cm FS: 19.1 % LAV(MOD- bp) Indexed: 30.2 ml/m2 LAV(MOD- sp2): 55.5 ml LAV(MOD- sp4): 39.2 ml LVAd ap4: 31.5 cm2 SV(MOD-sp4): 52.1 ml SV(sp4- el): 55.5 ml LVLd ap4: 8.1 cm SI(MOD-sp4): 33.7 ml/m2 EDV(MOD-sp4): 100.0 ml EDV(sp4-el): 104.2 ml LVAs ap4: 19.8 cm2 LVLs ap4: 6.9 cm ESV(MOD-sp4): 47.8 ml ESV(sp4-el): 48.7 ml EF(MOD-sp4): 52.1 % EF(sp4-el): 53.2 % LA dimension(2D): 3.7 cm LA A4 area: 15.4 cm2 RA A4 area: 12.2 cm2 TAPSE: 1.8 cm Time Measurements MV dec time: 0.28 sec Doppler Measurements & Calculations MV E max feliz: 69.0 cm/sec Lat Peak E' Feliz: 6.8 cm/sec Med Peak E' Feliz: 8.3 cm/sec MV A max feliz: 81.4 cm/sec E/E' lat: 10.2 E/E' med: 8.3 MV E/A: 0.85 MV V2 max: 108.7 cm/sec MV P1/2t max feliz: 109.7 cm/sec Ao V2 max: 149.6 cm/sec MV max P.7 mmHg MV P1/2t: 118.3 msec Ao max P.0 mmHg MV V2 mean: 51.3 cm/sec MV dec slope: 271.7 cm/sec2 Ao V2 mean: 105.1 cm/sec MV mean P.3 mmHg Ao mean P.0 mmHg MV V2 VTI: 34.4 cm MVA(P1/2t): 1.9 cm2 Ao V2 VTI: 31.8 cm LV V1 max: 95.0 cm/sec TR max feliz: 204.7 cm/sec LV V1 max P.6 mmHg TR max P.8 mmHg ECHO/Echo Complete Interpretation Summary Normal LV size. The global longitudinal strain = -17.4 % (normal). The left ventricular ejection fraction is 55 %. Stage 1 diastolic dysfunction. Ordering Physician: Andre Salcedo Referring Physician: Andre Salcedo Performed By: Atif Gonzalez RCS
== END 2024-10-30 23:59 | disposition home or self-care (01) ==
PROVIDERS: Referring Provider Internal Medicine Cardiovascular Disease; Visit Provider Internal Medicine Cardiovascular Disease
DX: I42.0 Dilated cardiomyopathy (principal)
CPT/HCPCS: 93306